=== PATIENT | female | born 1955 | race Caucasian/White ===

== ENCOUNTER 2016-08-11 09:27 | Inpatient (IN) ==
--- NOTE | 2016-08-10 12:49 | Discharge Summary ---
Date of Encounter: 08/15/16 Time of Encounter: 06:41 - Discharge Diagnosis (1) Rotator cuff tear arthropathy of right shoulder Priority: Primary Status: Acute (2) Lumbar radicular pain Priority: Secondary Status: Chronic (3) Asthma Priority: Secondary Status: Chronic Qualifiers: Asthma severity: unspecified severity Asthma complication type: uncomplicated Qualified Code(s): J45.909 - Unspecified asthma, uncomplicated (4) Hypothyroidism Priority: Secondary Status: Chronic Qualifiers: Hypothyroidism type: unspecified Qualified Code(s): E03.9 - Hypothyroidism , unspecified (5) Hypertension Priority: Secondary Status: Chronic Qualifiers: Hypertension type: unspecified secondary hypertension Qualified Code(s): I15.9 - Secondary hypertension, unspecified; I15 - Secondary hypertension (6) Hyperlipidemia Priority: Secondary Status: Chronic Qualifiers: Hyperlipidemia type: unspecified Qualified Code(s): E78.5 - Hyperlipidemia , unspecified (7) COPD (chronic obstructive pulmonary disease) Priority: Secondary Status: Chronic Qualifiers: COPD type: unspecified COPD Qualified Code(s): J44.9 - Chronic obstructive pulmonary disease, unspecified - Discharge Medications Home Medications: Baclofen 20 mg PO TID 01/19/16 [History] Citalopram Hydrobromide [Celexa] 40 mg PO HS 01/19/16 [History] Levothyroxine [Synthroid] 112 mcg PO DAILY 01/19/16 [History] Loratadine [Claritin] 10 mg PO HS 01/19/16 [History] Omeprazole [PriLOSEC] 40 mg PO DAILY 01/19/16 [History] Oxygen 2.5 l NS HS 01/19/16 [History] Pregabalin [Lyrica] 75 mg PO BID 01/19/16 [History] Simvastatin [Zocor] 40 mg PO HS 01/19/16 [History] Trihexyphenidyl HCl 5 mg PO BID 01/19/16 [History] Ziprasidone [Geodon] 80 mg PO BID 01/19/16 [History] Albuterol Neb [Proventil Neb] 2.5 mg IH [id number] PRN #0 inhsol 01/22/16 [Rx] Diazepam [Valium] 5 mg PO HS #30 tablet 01/22/16 [Rx] MOM Conc [MILK OF MAGNESIA conc] 5 ml PO HS PRN #0 ud.liq 01/22/16 [Rx] OxyCODONE Immed Rel [Roxicodone 5 MG] 5 - 10 mg PO Q6HR PRN #30 tablet 08/10/16 [Rx] ClonazePAM [Klonopin] 0.5 mg PO TID 08/11/16 [History] HYDROcodone/Acet 5/325 mg [[place] 5-325 mg] 1 tab PO Q6H PRN 08/11/16 [History] Ipratropium/Albuterol Neb [Duoneb] 3 ml IH Q6HR PRN 08/11/16 [History] Levofloxacin [Levaquin] 500 mg PO DAILY 08/11/16 [History] Topiramate [Topamax] 50 mg PO BID 08/11/16 [History] Allergies/Adverse Reactions: Allergies iodine Allergy (Verified 08/11/16 11:00) Redness of Skin morphine Allergy (Verified 08/11/16 11:00) Itching aspirin Adverse Reaction (Verified 08/11/16 11:00) Difficulty Breathing tape Allergy (Uncoded 08/11/16 11:00) Rash Primary care physician: Jeffery Santana MD - Patient Status Disposition: Transfer Inpatient Rehab Fac Condition: Good Functional capacity at discharge: independent ambulation Overall status at discharge: patient is progressing back to baseline - Discharge Instructions Follow Up With: Kavitha Smith PAC [Physician Stator Winder] - 08/25/16 2:15 pm Jeffery Santana MD [Primary Care Provider] - Additional Instructions: Discharge Instructions: Total Shoulder Please call [facility] ([phone]), your Primary Care Physician, or report to the Emergency Room if you have any of the following symptoms: Nausea, vomiting, fever greater that 101.5, swelling, chest pain, shortness of breath, increased pain/redness/drainage/odor for your incision site, numbness/ tingling, or any other concerning symptoms. ACTIVITY: Always keep your arm in the sling. Do not raise your arm away from your body. Do not use your arm to help with getting in or out of bed. No weight bearing permitted. Only perform those exercises given to you by your therapist. MEDICATIONS: Upon discharge resume your home medications. Take all the medications as prescribed. Take a stool softener if taking narcotic pain medications. Stool softeners are only effective if you drink enough fluids. Drink 6-8 glass of water or fluids a day, unless this is not allowed for another health problem. Despite using stool softeners, if you haven't had a bowel movement in 3 days, please switch to a gentle laxative. Gentle laxatives are sold over the counter. You should have a bowel movement within 24 hours, if not call the office. You will be discharged from the hospital with a prescription for pain medication. You are encouraged to decrease the use of narcotic pain medication as tolerated. Should you require a refill, please call the office. [facility] prescribes narcotic pain medication for only 4-6 weeks after surgery. If you require pain medication beyond this time period, you may be referred to your Primary Care Physician or to the Pain Clinic for further evaluation. Plan ahead for refills on pain medication as many narcotics either need to be picked up at the office or mailed. It is best to call 48-72 hours in advance of needing a prescription refill so you don't run out of medication. To help control the post-operative pain, you may take NSAIDs (Aleve,Advil, Motrin, ibuprofen, naprosyn) or Tylenol as prescribed on the bottle in addition to the pain medication. ANTICOAGULATION (blood thinners): Continue your Aspirin, Lovenox or Coumadin as prescribed to help prevent a blood clot in the leg or in the lungs. As long as your incision remains dry and you tolerate the NSAIDs (Aleve, Advil, Motrin, ibuprofen, naprosyn), it is OK to use the NSAIDS while you are taking your anticoagulation medication. Should your incision start to drain, stop the NSAID and contact our office. Common symptoms of blood clot in the legs include: localized pain, swelling, calf tenderness, redness or discoloration of the skin. Blood clot in the lung symptoms include: shortness of breath, rapid pulse, sweating, and chest pain that worsens with deep breathing, coughing up blood, lightheadedness, and feelings of anxiety. If you experience any of these symptoms notify your physician immediately, go to the emergency room, or if having trouble breathing , call 911. WOUND CARE: Leave the dressing on for 7 days. You may change the dressing if it becomes saturated greater than 50%. You can shower but not a tub bath or submerge your incision in water. Wash your hands with antibacterial soap, rinse and dry prior to any wound care. If you have camelia the visiting nurse or rehab facility can remove the stapes 10-14 days after surgery and place steri -strips across the wound. Leave the steri-strips in place until they fall off on their won. You may let water from the shower run on top of the steri- stirips. If you do not have a visiting nurse or rehab facility, you will need to return to the office at 10-14 days for the camelia to be removed. FOLLOW-UP: Please follow up with your surgeon in the orthopedic clinic, as scheduled - Hospital Course Hospital course: Ms. Dee is a 60 year old female The patient had an uneventful postoperative course. They received antibiotics and physical therapy and were discharged in stable condition. There will follow -up in the office in 2 weeks. - Time Spent with Patient Total time spent providing and/or coordinating discharge services:
[2016-08-11] MEDS ORDERED: CeFAZolin Pre 2,000 MG/100 ML 2,000 MG/100 ML BAG IVPB ONE (09:55)
[2016-08-11] MEDS ORDERED: Lidocaine 1% 20 ML MDV ID ONE (09:55)
[2016-08-11] MEDS ORDERED: Albuterol 2.5 MG/3 ML NEBULIZER IH ONE (09:55)
[2016-08-11] MEDS ORDERED: Ringers Solution, Lactated 1,000 ML IVC SCH ×2 (10:00→14:07)
--- NOTE | 2016-08-11 10:46 | Anesthesia Evaluation PreOp ---
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 (Lumbar spondylosis/radiculitis) Other Medical History: GERD, Other (fibromyalgia) Anesthesia History: No Prior Anesthetic Complications Alcohol Use: none Drug use: none Medications and Allergies Baclofen 20 mg PO TID 01/19/16 [History] Citalopram Hydrobromide [Celexa] 40 mg PO HS 01/19/16 [History] Levothyroxine [Synthroid] 112 mcg PO DAILY 01/19/16 [History] Loratadine [Claritin] 10 mg PO DAILY 01/19/16 [History] Naproxen [Naprosyn] 500 mg PO BID PRN 01/19/16 [History] Omeprazole [PriLOSEC] 40 mg PO DAILY 01/19/16 [History] Oxygen 2.5 l NS HS 01/19/16 [History] Pregabalin [Lyrica] 75 mg PO BID 01/19/16 [History] Simethicone [Gas Relief] 125 mg PO PRN PRN 01/19/16 [History] Simvastatin [Zocor] 40 mg PO HS 01/19/16 [History] Topiramate [Topamax] 25 mg PO QAM AND QHS 01/19/16 [History] Trihexyphenidyl HCl 5 mg PO BID 01/19/16 [History] Ziprasidone [Geodon] 80 mg PO BID 01/19/16 [History] Enoxaparin [Lovenox] 40 mg SQ DAILY #12 syringe 01/21/16 [Rx] Albuterol Neb [Proventil Neb] 2.5 mg IH [id number] PRN #0 inhsol 01/22/16 [Rx] Ascorbic Acid [Vitamin C] 500 mg PO BIDWM tablet 01/22/16 [Rx] Diazepam [Valium] 5 mg PO HS #30 tablet 01/22/16 [Rx] Ferrous Sulfate 325 mg PO BIDWM tablet 01/22/16 [Rx] HYDROcodone/Acet 5/325 mg [[place] 5-325 mg] 1 tab PO Q6H PRN #30 tab 01/22/16 [Rx ] MOM Conc [MILK OF MAGNESIA conc] 5 ml PO HS PRN #0 ud.liq 01/22/16 [Rx] Multivit/Ca/Min/Fe/FA [Thera M Plus] 1 tab PO DAILY tablet 01/22/16 [Rx] TraMADol [Ultram] 50 mg PO Q6HR PRN #30 tablet 01/22/16 [Rx] Ibuprofen 800 mg PO DAILY #1 tablet 03/31/16 [Rx] Azithromycin [Zithromax] 1 applic PO DAILY #6 tablet 07/31/16 [Rx] Benzonatate [Tessalon] 200 mg PO TID PRN #30 capsule 07/31/16 [Rx] OxyCODONE Immed Rel [Roxicodone 5 MG] 5 - 10 mg PO Q6HR PRN #30 tablet 08/10/16 [Rx] Allergies aspirin Allergy (Verified 06/19/16 11:15) Hives iodine Allergy (Verified 06/19/16 11:15) Hives morphine Allergy (Verified 06/19/16 11:15) Hives tape Allergy (Uncoded 06/19/16 11:15) Hives - Meds/Allergy Pre-op Review Medications Reviewed: Yes Allergies Reviewed: Yes Beta Blockers on Current Med List: No Anesthesia Results - Labs Laboratory Tests 08/08/16 08/08/16 08/08/16 14:29 14:29 14:29 WBC 4.9 Hgb 11.3 L Hct 33.7 L Plt Count 237 PT 12.7 H INR 1.2 APTT 33.3 Sodium 140 Potassium 3.8 Chloride 108 Carbon Dioxide 22 BUN 7 Creatinine 0.82 Est GFR ( Amer) > 60 Est GFR (Non-Af Amer) > 60 BUN/Creatinine Ratio 9 - Imaging EKG: report reviewed, image reviewed (SR) Anesthesia Exam Last Vital Signs Temp 98.4 F 08/11/16 09:43 Pulse 58 08/11/16 09:43 Resp 18 08/11/16 10:31 BP 108/58 08/11/16 10:31 Pulse Ox 93 L 08/11/16 10:31 Weight: 65 kg NPO (# of Hours): >> 8 hrs - HEENT Pupil (Motor): Pupils equal, EOMI Mallampati: II Teeth: Edentulous Oral Opening: Greater than 3 - 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
--- NOTE | 2016-08-11 11:04 | History & Physical Report ---
Date of Encounter: 08/11/16 Time of Encounter: 11:03 24 Hour HP Update - Instructions Instructions: If the History and Physical is less than 30 days old and was completed prior to A.M. admission and or procedure and has NOT been updated on calendar day of procedure please complete this update prior to performing procedure. - Update Patient reports changes in Medical Condition: No Changes in assessment/condition: No Changes in Medication: No Preop tests/diagnostics Reviewed: Yes Surgery Remains Indicated: Yes Consent for Planned Operative Procedure(s) Verified: Yes - Pre-Operative Checklist Preoperative Checklist Indicated: No Prophylactic Antibiotic Ordered: Yes Is VTE Prophylaxis Indicated?: Yes
[2016-08-11] MEDS ORDERED: Bupivacaine/Clonidine Syringe 1 EACH SYRINGE ONE (11:38)
[2016-08-11] MEDS ORDERED: ROPIVACAINE HCL/PF 0.5% 30 ML VIAL ONE (11:38)
[2016-08-11] MEDS ORDERED: Lidocaine -MPF 2% 2 ML VIAL ONE ×2 (11:42→11:59)
[2016-08-11] MEDS ORDERED: Dexamethasone 4 MG/ML VIAL ONE ×2 (11:42→11:59)
[2016-08-11] MEDS ORDERED: *HR* Midazolam HCl 2 MG/2 ML VIAL ONE ×2 (11:42→11:59)
[2016-08-11] MEDS ORDERED: *HR* Propofol 200 MG/20 ML VIAL IVP ONE ×2 (11:42→11:59)
[2016-08-11] MEDS ORDERED: Ondansetron 4 MG/2 ML VIAL ONE ×2 (11:42→11:59)
[2016-08-11] MEDS ORDERED: *HR* FentaNYL (PF) 100 MCG/2 ML VIAL ONE ×2 (11:42→11:59)
[2016-08-11] MEDS ORDERED: Lidocaine -MPF 4% 5 ML AMPUL ONE (11:45)
[2016-08-11] MEDS ORDERED: EPHEDrine 50 MG/ML VIAL ONE (11:46)
[2016-08-11] MEDS ORDERED: *HR* Phenylephrine 10 MG/ML VIAL ONE (11:46)
[2016-08-11] MEDS ORDERED: *HR* Rocuronium Bromide 50 MG/5 ML VIAL ONE (11:49)
[2016-08-11] MEDS ORDERED: *HR* Succinylcholine 200 MG/10 ML VIAL IVP ONE ×2 (11:50→11:59)
--- NOTE | 2016-08-11 12:00 | Anesthesia Procedures ---
Date of Encounter: 08/11/16 Time of Encounter: 11:50 Procedures: Anesthesia - Nerve Block Procedure Date: 08/11/16 Time: 11:50 Allergies/Adv Reactions: Allergies Allergy/AdvReac Type Severity Reaction Status Date / Time iodine Allergy Redness of Verified 08/11/16 11:00 Skin morphine Allergy Itching Verified 08/11/16 11:00 aspirin AdvReac Difficulty Verified 08/11/16 11:00 Breathing tape Allergy Rash Uncoded 08/11/16 11:00 Pre-op Diagnosis: Right Shoulder Arthritis Surgical Procedure: Right Total Shoulder Replacement Checklist: Correct Patient Identifier, Correct procedure, History checked Correct side: Right Blood Thinner: No Monitor Applied: BP, Pulse Oximetry Supplemental Oxygen via Nasal Cannula (L/min): 6 Sedation: Versed (mg): 2 Sedation: Fentanyl (mcg): 100 Indication: Post Op Analgesia Pre-op Neuro Deficits: No Block Type: Supraclavicular, Other (SCP, ICB) Catheter placed: No Sterile Technique: Yes Ultrasound used: Yes Anatomy identified: Yes Visual spread of Local: Yes Neuro Stimulation: Yes Nerve Stimulator Range: 0.2 - 0.4 mA Blood on Needle Aspiration: No Smooth Injection of Local: Yes Pain with Injection of Local: No Prep: Chlorhexadine Needle: 22 x 50 mm Stimuplex Local: Ropivacaine (0.5% - 20mL Supra, 5mL ICB and SCP) Volume (cc): 30 Number of Attempts: 1 Complications: None/effective block Vitals: VSS throughout procedure. Post 92-94%, 120/57, 64, 12 rr Comments: Verbal order Dr Clemente for post op pain management. Patient tolerated well.
[2016-08-11] MEDS ORDERED: Naloxone 0.4 MG/ML INJ IVP PRN ×2 (12:01→14:07)
[2016-08-11] MEDS ORDERED: Ondansetron 4 MG/2 ML VIAL IVP PRN ×2 (12:01→14:07)
[2016-08-11] MEDS ORDERED: *HR* HYDROmorphone (PF) 1 MG/ML SYRINGE IVP PRN ×2 (12:01→14:21)
--- NOTE | 2016-08-11 12:43 | Orthopedic Operative Note ---
Date of procedure: 08/11/16 Pre-op diagnosis: Right shoulder cuff tear arthropathy Post-op diagnosis: same Procedure: Procedure: Right Total Shoulder Replacment Reverse, Estimated blood loss: 100 cc Hardware:Arthrex small glenoid baseplate, 2 4.5 screws. 1 6.5 screw, 36 lateral glenosphere, 7 humeral stem, poly insert 3 constrained 6 metal Exam Under anesthesia: Full motion and no instability Procedural Notes: Irreparable tears subscap supraspinatus Operative procedure: The patient was brought to the operating room and placed on the operating room table. After general anesthesia was administered the operative shoulder was examined. Findings were noted. The patient was placed in the modified beachchair position. All pressure points were padded appropriately. And the head was stabilized in the neutral position. The operative extremity was prepped and draped in the sterile surgical fashion. The patient received IV antibiotics prior to skin incision. A standard deltopectoral approach was made to the operative shoulder. Incision was made to the skin and subcutaneous tissue,hemo stasis was obtained with Bovie cautery. Using careful blunt dissection the cephalic vein was identified and mobilized medially. The deltopectoral interval was developed and the clavipectoral fascia was incised. The subscap was irreparable. The humerus was dislocated patient noted to have irreparable tear supraspinatus tendon, and the humeral cut was made along the anatomic neck. Anterior and posterior Bankart retractors were placed to expose the glenoid. The glenoid guide was seated and the centering hole was made. It was reamed with the appropriate reamer. Small baseplate was seated and secured with (2) 4.5 screws and one 6.5 screw. The baseplate was irrigated and dried and the 36 lateral Glenosphere was seated and secured with the Tenorio taper. The Tenorio taper was tested and found to be secure the humerus was redislocated and prepared with the diaphyseal reamers, followed by a broaching process up to the appropriate size 7 in the patient's anatomic version. The metaphyseal reamer was then utilized. Trial reduction found the shoulder to be relocatable. Trial components were removed. The appropriate 7 stem was impacted in place in the patient's anatomic version. Trial reduction found the shoulder to be relocatable and stable with the appropriate 6 metal 3 constrained Kylie Trial component was removed and the 6 metal 3 constrained was seated and secured the shoulder was reduced. The shoulder had excellent motion and excellent stability and no evidence of dislocation. The deep tissue was irrigated with pulse irrigation. The deltopectoral interval was closed with a running #1 PDS suture, subcutaneous tissue was irrigated and closed with 0 PDS suture, the skin was closed with skin camelia The patient was placed in a sterile dressing, abduction brace and extubated. The patient was then transferred to the recovery room in stable condition. Anesthesia: GETA Surgeon: Jeffery Clemente Condition: stable Disposition: PACU
[2016-08-11 13:46] LABS: Hematocrit 35.1 % (35.3-44.9); Hemoglobin 11.5 g/dL (11.5-15.4)
[2016-08-11] MEDS ORDERED: Albuterol 2.5 MG/3 ML NEBULIZER IH PRN (14:07)
[2016-08-11] MEDS ORDERED: *HR* HYDROmorphone (PF) 1 MG/ML SYRINGE IVP SCH (14:07)
[2016-08-11] MEDS ORDERED: Sennosides 8.6 MG TABLET PO PRN (14:07)
[2016-08-11] MEDS ORDERED: MOM Conc 10 ML UD.LIQ PO PRN ×2 (14:07)
[2016-08-11] MEDS ORDERED: Temazepam 15 MG CAPSULE PO PRN (14:07)
[2016-08-11] MEDS ORDERED: Ipratropium/Albuterol Neb 3 ML IH PRN (14:07)
--- NOTE | 2016-08-11 14:11 | Anesthesia Evaluation Post Op ---
Date of Encounter: 08/11/16 Time of Encounter: 13:20 - Vital Signs Vital Signs: Last Vital Signs Temp 97.2 F L 08/11/16 14:02 Pulse 71 08/11/16 14:02 Resp 16 08/11/16 14:02 BP 119/64 08/11/16 14:02 Pulse Ox 99 08/11/16 14:02 - Lungs Lungs: Clear Ascult./Percussion - Airway Airway: Non-obstructed - Cardiovascular Regular Rate - Mental Status Mental Status: Alert & Oriented, Answers Appropriately - Pain Pain Scale: 2 - Nausea Vomiting Nausea Vomiting: Not Present - Hydration Hydration: Ice chips - Discharge PostOp Status: Transfer Patient to floor
[2016-08-11] MEDS: Baclofen 10 MG TABLET PO SCH ×2 (15:16→22:01)
[2016-08-11] MEDS: clonazePAM 0.5 MG TABLET PO SCH ×2 (15:17→22:01)
[2016-08-11] MEDS: ceFAZolin 2,000 MG in D5% in Water 100 ML IVPB SCH (15:17)
[2016-08-11] MEDS: *HR* OxyCODONE Immed Rel 5 MG TABLET PO PRN (15:26)
[2016-08-11] MEDS: *HR* Enoxaparin 30 MG/0.3 ML SYRINGE SQ SCH (16:49)
[2016-08-11] MEDS ORDERED: *HR* Enoxaparin 30 MG/0.3 ML SYRINGE SQ SCH (18:00)
[2016-08-11] MEDS ORDERED: NON-FORMULARY MEDICATION 1 EACH EACH (Oxygen [Oxygen] 2.5 L) NS SCH (21:00)
[2016-08-11] MEDS: Pregabalin 75 MG CAPSULE PO SCH (22:00)
[2016-08-11] MEDS: Loratadine 10 MG TABLET PO SCH (22:00)
[2016-08-11] MEDS: diazePAM 5 MG TABLET PO SCH (22:01)
[2016-08-11] MEDS: Ziprasidone 80 MG CAPSULE PO SCH (22:01)
[2016-08-11] MEDS: Acetaminophen 325 MG TABLET PO PRN (22:02)
[2016-08-11] MEDS: Topiramate 25 MG TABLET PO SCH (22:02)
[2016-08-12] MEDS: ceFAZolin 2,000 MG in D5% in Water 100 ML IVPB SCH (00:32)
[2016-08-12] MEDS: *HR* Enoxaparin 30 MG/0.3 ML SYRINGE SQ SCH ×2 (05:35→18:30)
[2016-08-12] MEDS: Acetaminophen 325 MG TABLET PO PRN (05:35)
--- NOTE | 2016-08-12 06:45 | Orthopedics Progress Note ---
Date of Encounter: 08/12/16 Time of Encounter: 06:44 - Assessment and Plan (1) Rotator cuff tear arthropathy of right shoulder Current Visit: Yes Status: Acute (2) Lumbar radicular pain Current Visit: No Status: Chronic (3) Asthma Current Visit: No Status: Chronic Qualifiers: Asthma severity: unspecified severity Asthma complication type: uncomplicated Qualified Code(s): J45.909 - Unspecified asthma, uncomplicated (4) Hypothyroidism Current Visit: No Status: Chronic Qualifiers: Hypothyroidism type: unspecified Qualified Code(s): E03.9 - Hypothyroidism , unspecified (5) Hypertension Current Visit: Yes Status: Chronic Qualifiers: Hypertension type: unspecified secondary hypertension Qualified Code(s): I15.9 - Secondary hypertension, unspecified; I15 - Secondary hypertension (6) Hyperlipidemia Current Visit: Yes Status: Chronic Qualifiers: Hyperlipidemia type: unspecified Qualified Code(s): E78.5 - Hyperlipidemia , unspecified (7) COPD (chronic obstructive pulmonary disease) Current Visit: Yes Status: Chronic Qualifiers: COPD type: unspecified COPD Qualified Code(s): J44.9 - Chronic obstructive pulmonary disease, unspecified Subjective Interval history: Patient was seen this morning drowsy Afebrile vital signs stable. Operative extremity: Neurovascularly intact Dressing clean dry and intact Calves nontender Assessment and plan: Continue with postoperative care Discharged today if eligible Objective Vital signs: Vital Signs Temp Pulse Resp BP Pulse Ox 08/12/16 06:37 97.3 F L 63 16 116/71 96 08/12/16 04:44 97.7 F 75 16 152/83 100 08/12/16 00:49 98.0 F 65 16 117/73 98 08/11/16 19:15 97.7 F 77 15 103/66 92 L 08/11/16 16:53 97.4 F L 71 12 105/56 90 L 08/11/16 16:00 97.8 F 65 12 119/61 99 08/11/16 14:45 97.6 F 64 18 114/68 97 08/11/16 14:02 97.2 F L 71 16 119/64 99 08/11/16 13:44 97.6 F 67 16 126/68 08/11/16 13:28 97.3 F L 80 18 121/71 98 08/11/16 13:18 77 18 133/65 97 08/11/16 13:08 81 18 121/69 98 08/11/16 12:58 97.6 F 83 18 123/61 95 08/11/16 11:43 66 112/56 98 08/11/16 10:31 18 108/58 93 L 08/11/16 09:43 98.4 F 58 18 108/58 93 L Intake and Output 08/11/16 08/11/16 08/12/16 15:59 23:59 07:59 Intake Total 100 / 100 Output Total 100 / 100 Balance -100 / -100 100 / 100 Intake: IV Fluids 100 / 100 Ancef 2,000 MG In 100 / 100 Dextrose 5% 100 ML @ 200 mls/hr IVPB Q8HR [facility] Rx#: [id number] Output: Estimated Blood Loss 100 / 100 Other: Weight 64.864 kg - Labs CBC & BMP: 08/11/16 13:19 Labs: Abnormal lab results Hct 35.1 % (35.3-44.9) L 08/11/16 13:19 - VTE Documentation of Mechanical Device: Intermittent pneumatic compression device Consult Discharge Plan - Plan Referrals: Jeffery Santana MD [Primary Care Provider] - Prescriptions: OxyCODONE Immed Rel [Roxicodone 5 MG] 5 - 10 mg PO Q6HR PRN #30 tablet PRN Reason: Pain
[2016-08-12 07:13] LABS: Hematocrit 34.7 % (35.3-44.9); Hemoglobin 11.3 g/dL (11.5-15.4)
[2016-08-12] MEDS: Topiramate 25 MG TABLET PO SCH ×2 (09:11→21:33)
[2016-08-12] MEDS: Ziprasidone 80 MG CAPSULE PO SCH ×2 (09:11→21:34)
[2016-08-12] MEDS: clonazePAM 0.5 MG TABLET PO SCH ×3 (09:12→21:34)
[2016-08-12] MEDS: Pregabalin 75 MG CAPSULE PO SCH ×2 (09:12→21:34)
[2016-08-12] MEDS: Baclofen 10 MG TABLET PO SCH ×3 (09:12→21:33)
[2016-08-12] MEDS: *HR* OxyCODONE Immed Rel 5 MG TABLET PO PRN ×2 (12:21→18:31)
[2016-08-12] MEDS ORDERED: Cortisporin *EAR* SOLN 10 ML BOTTLE RIGHT EAR SCH (13:00)
[2016-08-12] MEDS ORDERED: Acetaminophen IV 1,000 MG/100 ML INFUS..BTL IVPB PRN (13:48)
[2016-08-12] MEDS: Loratadine 10 MG TABLET PO SCH (21:33)
[2016-08-12] MEDS: Cortisporin *EAR* SOLN 10 ML BOTTLE RIGHT EAR SCH (21:33)
[2016-08-12] MEDS: diazePAM 5 MG TABLET PO SCH (21:34)
[2016-08-13 05:43] LABS: Hematocrit 39.1 % (35.3-44.9); Hemoglobin 12.6 g/dL (11.5-15.4)
[2016-08-13] MEDS: Cortisporin *EAR* SOLN 10 ML BOTTLE RIGHT EAR SCH ×3 (05:45→20:43)
[2016-08-13] MEDS: *HR* Enoxaparin 30 MG/0.3 ML SYRINGE SQ SCH ×2 (05:48→17:36)
[2016-08-13] MEDS: Topiramate 25 MG TABLET PO SCH ×2 (09:53→20:42)
[2016-08-13] MEDS: Baclofen 10 MG TABLET PO SCH ×3 (09:53→20:41)
[2016-08-13] MEDS: Ziprasidone 80 MG CAPSULE PO SCH ×2 (09:53→21:00)
[2016-08-13] MEDS: Pregabalin 75 MG CAPSULE PO SCH ×2 (09:54→20:41)
[2016-08-13] MEDS: clonazePAM 0.5 MG TABLET PO SCH ×3 (09:54→20:40)
--- NOTE | 2016-08-13 13:08 | Orthopedics Progress Note ---
Date of Encounter: 08/13/16 Time of Encounter: 13:06 - Assessment and Plan (1) Rotator cuff tear arthropathy of right shoulder Current Visit: Yes Status: Acute Stable Discharge to rehabilitation tomorrow Subjective Principal diagnosis: Right shoulder rotator cuff tear Interval history: Patient comfortable without complaints Right shoulder: Wound is clean dry intact Sling in place Neurovascularly intact distally Minimal swelling off and Objective Vital signs: Vital Signs Temp Pulse Resp BP Pulse Ox 08/13/16 10:58 98.4 F 76 16 132/79 95 08/13/16 06:33 98.4 F 78 18 151/81 94 L 08/12/16 23:39 98.4 F 59 18 116/74 95 08/12/16 20:00 99.0 F 78 15 143/68 93 L 08/12/16 15:22 97.6 F 56 14 144/74 95 Intake and Output 08/12/16 08/13/16 08/13/16 23:59 07:59 15:59 Intake Total 560 / 560 100 / 100 Output Total 800 / 800 Balance -240 / -240 100 / 100 Intake: IV Fluids 200 / 200 Ofirmev 1,000 mg In 100 100 / 100 ml @ 400 mls/hr IVPB Q6H PRN Rx#:[id number] Ancef 2,000 MG In 100 / 100 Dextrose 5% 100 ML @ 200 mls/hr IVPB Q8HR [facility] Rx#: [id number] Oral 360 / 360 100 / 100 Output: Urine 800 / 800 Other: Meal Dinner Breakfast Percent of Meal Consumed 90% 10% # Voids 1 Blood Glucose* 449 Incision: clean and dry - Labs CBC & BMP: 08/13/16 04:36 - VTE Documentation of Mechanical Device: Venous foot pump, device Consult Discharge Plan - Plan Referrals: Jeffery Santana MD [Primary Care Provider] -
[2016-08-13] MEDS: Loratadine 10 MG TABLET PO SCH (20:42)
[2016-08-13] MEDS: diazePAM 5 MG TABLET PO SCH (21:00)
[2016-08-14] MEDS: *HR* OxyCODONE Immed Rel 5 MG TABLET PO PRN ×2 (00:08→11:03)
[2016-08-14] MEDS: Cortisporin *EAR* SOLN 10 ML BOTTLE RIGHT EAR SCH (04:02)
[2016-08-14] MEDS: *HR* Enoxaparin 30 MG/0.3 ML SYRINGE SQ SCH (05:44)
[2016-08-14] MEDS: Topiramate 25 MG TABLET PO SCH (08:25)
[2016-08-14] MEDS: Pregabalin 75 MG CAPSULE PO SCH (08:25)
[2016-08-14] MEDS: Baclofen 10 MG TABLET PO SCH (08:25)
[2016-08-14] MEDS: clonazePAM 0.5 MG TABLET PO SCH (08:26)
[2016-08-14] MEDS: Ziprasidone 80 MG CAPSULE PO SCH (08:26)
[2016-08-14 10:57] VITALS: BP 131/78
== END 2016-08-14 12:17 | DRG 483 ==
LOC: SAMDAY 09:27 → 3NENU 10:58
PROVIDERS: ADMIT Orthopaedic Surgery; ATTEND Orthopaedic Surgery

== ENCOUNTER 2017-03-28 18:54 | Observation (INO) ==
[2017-03-28] MEDS ORDERED: Levofloxacin 750 MG/150 ML 750 MG/150 ML BAG IVPB ONE (20:49)
--- NOTE | 2017-03-28 21:08 | Emergency Department Note ---
Disposition Clinical Impression: Sepsis Qualifiers: Sepsis type: sepsis due to unspecified organism Qualified Code(s): A41.9 - Sepsis, unspecified organism Community acquired pneumonia Qualifiers: Laterality: right Lung location: upper lobe of lung Qualified Code(s): J18.1 - Lobar pneumonia, unspecified organism Disposition: Admitted As Inpatient Condition: Good Referrals: Inga Birch [employer] [Primary Care Provider] - Forms: ED Satisfaction Letter SOB HPI - General Chief Complaint: ED Shortness of Breath/Dyspnea Stated Complaint: Pneumonia Time Seen by Provider: 03/28/17 19:59 Source: patient Mode of arrival: private vehicle Limitations: no limitations Nursing Notes Reviewed: Yes Vital Signs Reviewed: Yes - History of Present Illness 61-year-old female history of asthma wears 2-1/2 L at night, smoking who presents to the ER due to shortness of breath, cough, fever and called by her primary care provider. Patient states she has felt unwell for the last 4-5 days. She was seen by her PCP today and had an chest x-ray ordered. She states she was called and told showed pneumonia. She reports she has had fevers and chills at home as well as a productive cough with yellow sputum for the last 4-5 days. Reports right-sided shoulder pain during this time. No nausea vomiting or diarrhea. No recent illnesses. States she has had pneumonia in the past with his heart recently. No other complaints. Pt Subjective Complaint: shortness of breath, cough Onset (ago): day(s) Context: recent illness Severity: moderate Consistency/Duration: constant Improves with: nothing Worsens with: nothing Known history of: asthma Associated symptoms: Reports: chest pain, fever, cough, sputum production Treatment prior to arrival: none Cough present: Yes Cough Description: Involuntary Cough Frequency: Intermittent Sputum production: Yes Sputum Amount: Small Sputum Color: Yellow - Related Data Home oxygen amount: 2 liters Home Medications Medication Instructions Recorded Confirmed Baclofen 20 mg PO TID 01/19/16 03/28/17 Citalopram Hydrobromide [Celexa] 40 mg PO HS 01/19/16 03/28/17 Levothyroxine [Synthroid] 112 mcg PO DAILY 01/19/16 03/28/17 Omeprazole [PriLOSEC] 40 mg PO DAILY 01/19/16 03/28/17 Oxygen 2.5 l NS HS 01/19/16 03/28/17 Pregabalin [Lyrica] 75 mg PO BID 01/19/16 03/28/17 Simvastatin [Zocor] 40 mg PO HS 01/19/16 03/28/17 Trihexyphenidyl HCl 5 mg PO BID 01/19/16 03/28/17 Ziprasidone [Geodon] 80 mg PO BID 01/19/16 03/28/17 Topiramate [Topamax] 50 mg PO BID 08/11/16 03/28/17 levoFLOXacin [Levaquin] 500 mg PO DAILY 08/11/16 03/28/17 Cetirizine HCl [Zyrtec] 10 mg PO DAILY 03/28/17 03/28/17 Ferrous Sulfate [Iron] 325 mg PO DAILY 03/28/17 03/28/17 Multivitamin [One Daily 1 each PO DAILY 03/28/17 03/28/17 Multivitamin] Simethicone [Gas Relief] 125 mg PO QID PRN 03/28/17 03/28/17 traZODone [TraZODone] 50 mg PO HS 03/28/17 03/28/17 Previous Rx's Medication Instructions Recorded Albuterol Neb [Proventil Neb] 2.5 mg IH [id number] PRN #0 inhsol 01/22/16 diazePAM [Valium] 5 mg PO HS #30 tablet 01/22/16 Allergies Allergy/AdvReac Type Severity Reaction Status Date / Time iodine Allergy Redness of Verified 03/28/17 19:25 Skin morphine Allergy Itching Verified 03/28/17 19:25 aspirin AdvReac Difficulty Verified 03/28/17 19:25 Breathing tape Allergy Rash Uncoded 08/11/16 11:00 All systems ED: reviewed and negative except as stated. Constitutional: Reports: fever, chills, weakness Cardiovascular: Reports: chest pain Respiratory: Reports: cough, dyspnea, sputum production Gastrointestinal: Denies: abdominal pain, nausea, vomiting, diarrhea Past Medical History - Past Medical History Attestation: Yes The following information was validated with the patient. Source: patient Medical history: Reports: asthma, GERD, thyroid disease Surgical history: Reports: appendectomy, , orthopedic, other, other Psychiatric history: Reports: anxiety, depression [employer] history: Reports: non-contributory - Social History Smoking Status: Current some day smoker Smokeless Tobacco Status: No Alcohol use: Reports: none Drug use: Reports: none Physical Exam - General Limitations: no limitations General appearance: alert, in no apparent distress - Head Head exam: atraumatic, normocephalic, normal inspection - Eye Eye exam: Present: normal appearance, EOMI - ENT ENT exam: normal exam - Neck Neck exam: Present: normal inspection, full ROM - Chest Chest inspection: Present: normal inspection, symmetric chest wall rise - Respiratory Respiratory exam: Present: other (Diminished breath sounds in the right upper and lower lung armas. Otherwise clear to auscultation). Absent: respiratory distress, wheezes, prolonged expiratory phase - Cardiovascular Cardiovascular exam: Present: normal rhythm, tachycardia, normal heart sounds - Abdominal Exam Abdominal exam: Present: soft, Non-Tender. Absent: tenderness, distention, rigidity - Extremities Exam Extremities exam: Present: normal inspection, full ROM - Expanded Upper Extremity Exam Shoulder exam: Present: normal inspection, full ROM Arm exam: Present: normal inspection, full ROM Elbow exam: Present: normal inspection, full ROM Forearm/Wrist exam: Present: normal inspection, full ROM Hand exam: Present: normal inspection, full ROM Vascular exam: Normal: radial pulse - Expanded Lower Extremity Exam Hip/Pelvis exam: Present: normal inspection, full ROM Upper leg exam: Present: normal inspection, full ROM Knee exam: Present: normal inspection, full ROM Lower leg exam: Present: normal inspection, full ROM Ankle exam: Present: normal inspection, full ROM Foot/toe exam: Present: normal inspection, full ROM Neurovascular/Tendon exam: Absent: motor deficit, sensory deficit - Neurological Exam Neurological exam: Present: alert, other (GCS 15. Nonfocal exam. Moves all extremities equally.) - Psychiatric Psychiatric exam: Present: normal affect, normal mood - Skin Skin exam: Present: warm, dry, intact, normal color Course Course Narrative: Patient seen and examined. Febrile and tachycardic here. Chest x-ray reviewed showing right upper lobe pneumonia. We will obtain sepsis protocol labs including lactate and blood cultures. Patient given a liter of IV fluids and a dose of Levaquin. Will be admitted to the hospitalist service for pneumonia, sepsis. Vital Signs Temperature 101.5 F H 03/28/17 19:26 Pulse Rate 105 03/28/17 19:26 Respiratory Rate 20 03/28/17 19:26 Blood Pressure 163/83 03/28/17 19:26 O2 Sat by Pulse Oximetry 90 03/28/17 19:26 Temperature 101.5 F H 03/28/17 19:26 Pulse Rate 105 03/28/17 19:26 Respiratory Rate 20 03/28/17 19:26 Blood Pressure 163/83 03/28/17 19:26 O2 Sat by Pulse Oximetry 91 03/28/17 20:38 Oxygen Delivery Oxygen Delivery Room Air Shortness of Breath/Dyspnea - MDM Narrative Medical decision making narrative: 61-year-old female presents to the ER due to pneumonia. She has been sick for several days prior. Was seen by her PCP and noted to have pneumonia by chest x- ray. She is febrile here as well as tachycardic. Lactate is normal. Given a liter of fluids and a dose of IV Levaquin. She is admitted to the hospitalist service in stable condition for community-acquired pneumonia and sepsis. - Lab Data Lab results reviewed: Yes I reviewed the patient's lab results. Result diagrams: 03/28/17 22:17 03/28/17 22:17 Lab Results 03/28/17 03/28/17 03/28/17 Range/Units 22:17 22:17 22:17 WBC 11.8 H (4.3-11.1) K/mcL RBC 3.24 L (3.82-4.97) M/mcL Hgb 10.7 L (11.5-15.4) g/dL Hct 30.6 L (35.3-44.9) % MCV 94.4 (83.0-100.0) fL MCH 33.0 (28.0-33.3) pg MCHC 35.0 (31.6-35.5) g/dL RDW 12.8 (11.5-14.5) % Plt Count 199 (140-400) K/mcL MPV 9.9 (9.4-12.4) fL Immature Plt Fraction 3.3 (1.1-6.1) % PT (9.4-12.1) Seconds INR APTT (26.0-36.0) Seconds Sodium 135 L (136-145) mEq/L Potassium 3.3 L (3.5-4.5) mEq/L Chloride 102 (98-109) mEq/L Carbon Dioxide 24 (19-29) mEq/L BUN 8 (7-20) mg/dL Creatinine 0.76 (0.57-1.11) mg/dL Est GFR ( Amer) > 60 (> 60) Est GFR (Non-Af Amer) > 60 (> 60) BUN/Creatinine Ratio 11 (6-26) Glucose 137 H (70-99) mg/dL Calculated Osmolality 280 (280-300) Lactic Acid 1.1 (0.5-2.2) mmol/L Calcium 8.9 (8.6-10.8) mg/dL Phosphorus (2.3-4.7) mg/dL Magnesium (1.6-2.6) mg/dL Total Bilirubin (0.2-1.2) mg/dL Direct Bilirubin (0.0-0.5) mg/dL Indirect Bilirubin (0.0-1.2) mg/dL AST (5-34) Units/L ALT (0-55) Units/L Alkaline Phosphatase (38-126) Units/L Serum Total Protein (6.0-8.3) g/dL Albumin (3.5-5.0) g/dL Globulin (2.4-3.5) g/dL Albumin/Globulin Ratio (1.1-2.2) 03/28/17 03/28/17 Range/Units 22:17 22:17 WBC (4.3-11.1) K/mcL RBC (3.82-4.97) M/mcL Hgb (11.5-15.4) g/dL Hct (35.3-44.9) % MCV (83.0-100.0) fL MCH (28.0-33.3) pg MCHC (31.6-35.5) g/dL RDW (11.5-14.5) % Plt Count (140-400) K/mcL MPV (9.4-12.4) fL Immature Plt Fraction (1.1-6.1) % PT 12.8 H (9.4-12.1) Seconds INR 1.2 APTT 28.1 (26.0-36.0) Seconds Sodium (136-145) mEq/L Potassium (3.5-4.5) mEq/L Chloride (98-109) mEq/L Carbon Dioxide (19-29) mEq/L BUN (7-20) mg/dL Creatinine (0.57-1.11) mg/dL Est GFR ( Amer) (> 60) Est GFR (Non-Af Amer) (> 60) BUN/Creatinine Ratio (6-26) Glucose (70-99) mg/dL Calculated Osmolality (280-300) Lactic Acid (0.5-2.2) mmol/L Calcium (8.6-10.8) mg/dL Phosphorus 2.5 (2.3-4.7) mg/dL Magnesium 1.9 (1.6-2.6) mg/dL Total Bilirubin 0.3 (0.2-1.2) mg/dL Direct Bilirubin 0.2 (0.0-0.5) mg/dL Indirect Bilirubin 0.1 (0.0-1.2) mg/dL AST 19 (5-34) Units/L ALT 12 (0-55) Units/L Alkaline Phosphatase 87 (38-126) Units/L Serum Total Protein 6.8 (6.0-8.3) g/dL Albumin 3.3 L (3.5-5.0) g/dL Globulin 3.5 (2.4-3.5) g/dL Albumin/Globulin Ratio 0.9 L (1.1-2.2) - Radiology Data Radiology results reviewed: Yes I reviewed the patient's radiology results. - EKG Data EKG attestation: Yes I reviewed and interpreted this EKG. EKG results narrative: EKG demonstrates sinus rhythm with a rate of 80 bpm. Normal axis. Normal intervals. Normal R-wave progression. Nonspecific ST-T wave changes in the inferior leads. No gross ST elevations or depressions. No acute ischemic findings. S.B.A.R. - S.[email or web address].[email or web address] Situation: Demographics, MOA Background: Presenting Complaint, Relevant PMH, Meds, & Allergies Assessment: Course and respsone to treatment, Exam Concerns, Patient/Family Expectation, Pertinant Lab Results Recommendation: Barrier(s) to disposition, Recommendation based on pending studies, treatments, or consults S.B.Vasquez Report Given to: Dr. Will Greene Repor Time: 22:50
--- NOTE | 2017-03-28 21:53 | Emergency Department Note ---
START Narrative - START START: I examined this patient and my medical decision-making was reviewed with the Resident Physician. I agree with the documented findings, disposition and treatment plan as described except to the extent set forth below. 61 year old female with diagnosed pneumonia on RLL earlier today with SIRS criteria (+) temperature/tachycardia will be admitted to medicine today with levauqin ordered and IVF for sepsis protocol.
[2017-03-28] MEDS: 0.9 % Sodium Chloride 1,000 ML IVC SCH ×2 (21:55→22:36)
[2017-03-28 22:31] LABS: Basophils % 0.1 %; Eosinophils % 0.3 %; Hematocrit 30.6 % (35.3-44.9); Hemoglobin 10.7 g/dL (11.5-15.4); Immature Granulocytes % 0.4 % (0-4); Immature Platelets 3.3 % (1.1-6.1); Lymphocytes # 0.7 K/mcL (0.6-4.6); Mean Corpuscular Volume 94.4 fL (83.0-100.0); Mean Platelet Volume 9.9 fL (9.4-12.4); Monocytes # 0.7 K/mcL (0.0-1.3); Monocytes % 6.2 %; Neutrophils # 10.3 K/mcL (1.6-8.9); Platelet Count 199 K/mcL (140-400); Red Blood Count 3.24 M/mcL (3.82-4.97); Red Cell Distribution Width 12.8 % (11.5-14.5)
[2017-03-28 22:39] LABS: INR 1.2; Prothrombin Time 12.8 Seconds (9.4-12.1)
[2017-03-28 22:41] LABS: BUN/Creatinine Ratio 11 (6-26); Blood Urea Nitrogen 8 mg/dL (7-20); Carbon Dioxide 24 mEq/L (19-29); Chloride 102 mEq/L (98-109); Potassium 3.3 mEq/L (3.5-4.5); Sodium 135 mEq/L (136-145); eGFR For African Americans > 60 (> 60)
[2017-03-28 22:42] LABS: Activated Partial Thrombo Time 28.1 Seconds (26.0-36.0); Calcium 8.9 mg/dL (8.6-10.8); Glucose 137 mg/dL (70-99); Osmolality,Calculated 280 (280-300); eGFR For Non-African Americans > 60 (> 60)
[2017-03-28 22:46] LABS: Albumin 3.3 g/dL (3.5-5.0); Albumin/Globulin Ratio 0.9 (1.1-2.2); Bilirubin,Direct 0.2 mg/dL (0.0-0.5); Bilirubin,Indirect 0.1 mg/dL (0.0-1.2); Bilirubin,Total 0.3 mg/dL (0.2-1.2); Globulin 3.5 g/dL (2.4-3.5); Magnesium 1.9 mg/dL (1.6-2.6); Phosphorous 2.5 mg/dL (2.3-4.7); Total Protein 6.8 g/dL (6.0-8.3)
[2017-03-28 23:01] LABS: Platelet Estimate Normal (Normal)
[2017-03-29] MEDS ORDERED: Naloxone 0.4 MG/ML INJ IVP PRN (01:17)
[2017-03-29] MEDS ORDERED: Ipratropium/Albuterol Neb 3 ML IH PRN (01:23)
[2017-03-29] MEDS ORDERED: 0.9 % Sodium Chloride 1,000 ML IVC SCH (01:30)
--- NOTE | 2017-03-29 01:30 | Internal Med History&Physical ---
Date of Encounter: 03/29/17 Time of Encounter: 01:28 Assessment and Plan (1) Community acquired pneumonia Current visit: Yes Status: Acute Chest x-ray performed in the ER revealed the presence of a right upper lobe pneumonia. -Patient is febrile and tachycardic at presentation. White count is elevated at 11.8. -Lactate is normal -IV Levaquin 750 mg daily. -DuoNeb's as needed. -Blood cultures and sputum cultures. Qualifiers: Laterality: right Lung location: upper lobe of lung Qualified Code(s): J18.1 - Lobar pneumonia, unspecified organism (2) COPD (chronic obstructive pulmonary disease) Current visit: No Status: Chronic Patient is a known history of COPD. -Patient is admitted smoker, although she is trying to quit. -Patient smoked for approximately 30-40 years. -She is down to 1-2 cigarettes per day. -Wears 2-1/2 L of oxygen at night. -Continue home medications. -DuoNeb as needed. Qualifiers: COPD type: unspecified COPD Qualified Code(s): J44.9 - Chronic obstructive pulmonary disease, unspecified (3) Hypertension Current visit: No Status: Chronic Patient has a known history of hypertension. -Upon admission to the hospital, patient's blood pressure is 163/83. -Continue home medications. Qualifiers: Hypertension type: unspecified Qualified Code(s): I10 - Essential (primary ) hypertension (4) DVT prophylaxis Current visit: No Status: Acute Heparin 5000 subcutaneous every 12 hours (5) Suspected CHF (congestive heart failure) Current visit: Yes Status: Acute Patient has hepatojugular reflux. -No known history of CHF. -Draw BNP labs in the morning. -Telemetry. -Echocardiogram ordered. Internal Medicine - H&P: HPI Chief complaint: Shortness of breath Admitted From: Home History of present illness: Ms. Dee is a 61 year old female with past medical history of asthma, COPD, and thyroid disease who presented to the ER today with chief complaint of shortness of breath, cough, fever. Patient states she was seen earlier in the day by her primary care provider, who recommended that she come into the ER after chest x- ray revealed possible postoperative pneumonia. She notes that her symptoms have lasted approximately 4-5 days. She has felt unwell, has had fever, chills , and a productive cough with yellow colored sputum. She also complains of right-sided shoulder pain. Patient has not been hospitalized recently. Last time patient was hospitalized for a fall that she had. She denies any recent travel or antibiotic use. She does note that she has had pneumonia in the distant past. She uses 2-1/2 L of oxygen at night. She denies chest pain, headache, sore throat, and sinus congestion. Past Med Surg Social Fam HX - Past Medical History Medical history: asthma, GERD, thyroid disease Psychiatric history: anxiety, depression - Past Surgical History Surgical History: appendectomy, , orthopedic, other, other - Social History Smoking Status: Current some day smoker Smokeless Tobacco Status: No Alcohol use: none Drug use: none - Family History Father Name: Roger Birch Family Member Ethnicity: Non- Living Status: Age at : 91 Cause of : cancer Hx Family Cardiac Disorders: No Hx Family Respiratory Disorders: No Hx Family Cancer: Yes (Prostate Cancer) Hx Family GI Disorders: No Hx Family Genitourinary Disorders: No Hx Family Endocrine Disorder: No Internal Medicine - H&P: Meds Baclofen 20 mg PO TID 01/19/16 [History] Citalopram Hydrobromide [Celexa] 40 mg PO HS 01/19/16 [History] Levothyroxine [Synthroid] 112 mcg PO DAILY 01/19/16 [History] Omeprazole [PriLOSEC] 40 mg PO DAILY 01/19/16 [History] Oxygen 2.5 l NS HS 01/19/16 [History] Pregabalin [Lyrica] 75 mg PO BID 01/19/16 [History] Simvastatin [Zocor] 40 mg PO HS 01/19/16 [History] Trihexyphenidyl HCl 5 mg PO BID 01/19/16 [History] Ziprasidone [Geodon] 80 mg PO BID 01/19/16 [History] Albuterol Neb [Proventil Neb] 2.5 mg IH [id number] PRN #0 inhsol 01/22/16 [Rx] diazePAM [Valium] 5 mg PO HS #30 tablet 01/22/16 [Rx] Topiramate [Topamax] 50 mg PO BID 08/11/16 [History] levoFLOXacin [Levaquin] 500 mg PO DAILY 08/11/16 [History] Cetirizine HCl [Zyrtec] 10 mg PO DAILY 03/28/17 [History] Ferrous Sulfate [Iron] 325 mg PO DAILY 03/28/17 [History] Multivitamin [One Daily Multivitamin] 1 each PO DAILY 03/28/17 [History] Simethicone [Gas Relief] 125 mg PO QID PRN 03/28/17 [History] traZODone [TraZODone] 50 mg PO HS 03/28/17 [History] 3 Allergy/AdvReac Type Severity Reaction Status Date / Time iodine Allergy Redness of Verified 03/28/17 19:25 Skin morphine Allergy Itching Verified 03/28/17 19:25 aspirin AdvReac Difficulty Verified 03/28/17 19:25 Breathing tape Allergy Rash Uncoded 08/11/16 11:00 All Systems PM: A 10-system review of systems was performed and is negative for pertinent findings except as documented above in the HPI. - Constitutional Constitutional: chills, fatigue, fever(s), malaise, weakness, no anorexia, no night sweats - Cardiovascular Cardiovascular ROS IM: dyspnea, no chest pain, no diaphoresis, no lightheadedness, no palpitations, no syncope - Respiratory Respiratory: cough, dyspnea, chest congestion, excessive phlegm production, change in phlegm color, no wheezing - Gastrointestinal Gastrointestinal: no abdominal pain, no diarrhea, no hematemesis, no hematochezia, no melena, no nausea, no vomiting - Genitourinary Genitourinary: no change in urinary stream, no dysuria, no flank pain - Constitutional Vitals: Temp Pulse Resp BP Pulse Ox 97.8 F 86 18 137/77 97 03/29/17 00:18 03/29/17 00:18 03/29/17 00:18 03/29/17 00:18 03/29/17 00:18 General appearance: Present: A&O X 3, answers questions appropriately - Head Head exam: Present: atraumatic, normocephalic - Neck Neck exam general surgery: Present: supple, trachea midline. Absent: lymphadenopathy - Respiratory Respiratory exam: Present: decreased breath sounds, rales, rhonchi. Absent: accessory muscle use, wheezes - Cardiovascular Cardiovascular exam: Present: RRR, +S1, +S2. Absent: diastolic murmur, gallop, rubs, systolic murmur - GI/Abdominal GI/Abdominal exam: Present: normal bowel sounds, soft, no peritoneal signs. Absent: distended, tenderness - Extremities Exam Extremities exam: Present: warm, radial pulses palpable and symmetrical. Absent : calf tenderness, cyanotic - Skin Skin exam: Present: dry, intact Internal Med - H&P Results - Labs CBC & Chem 7: 03/28/17 22:17 03/28/17 22:17
[2017-03-29] MEDS ORDERED: Albuterol 2.5 MG/3 ML NEBULIZER IH PRN ×2 (01:41→09:22)
[2017-03-29] MEDS ORDERED: Simethicone 80 MG TAB.CHEW PO PRN (01:41)
[2017-03-29] MEDS: Acetaminophen 325 MG TABLET PO PRN ×2 (03:03→12:12)
--- NOTE | 2017-03-29 03:49 | Event Note ---
Date of Encounter: 03/29/17 Time of Encounter: 03:46 Patient centered examined with medical specialist. Community acquired pneumonia with sepsis. We will start the patient on levofloxacin. She is on nighttime oxygen, not sure if she has COPD. No active wheezing on exam. She has a positive hepatojugular reflux and trace LE swelling. Will check echocardiogram
[2017-03-29 06:02] LABS: Hematocrit 29.1 % (35.3-44.9); Hemoglobin 10.1 g/dL (11.5-15.4); Mean Corpuscular HGB Conc 34.7 g/dL (31.6-35.5); Mean Corpuscular Hemoglobin 32.9 pg (28.0-33.3); Mean Corpuscular Volume 94.8 fL (83.0-100.0); Mean Platelet Volume 9.8 fL (9.4-12.4); Platelet Count 164 K/mcL (140-400); Red Blood Count 3.07 M/mcL (3.82-4.97)
[2017-03-29 06:09] LABS: BUN/Creatinine Ratio 10 (6-26); Blood Urea Nitrogen 6 mg/dL (7-20); Calcium 8.3 mg/dL (8.6-10.8); Carbon Dioxide 24 mEq/L (19-29); Chloride 107 mEq/L (98-109); Glucose 122 mg/dL (70-99); Magnesium 1.7 mg/dL (1.6-2.6); Osmolality,Calculated 283 (280-300); Phosphorous 2.2 mg/dL (2.3-4.7); Potassium 3.6 mEq/L (3.5-4.5); Sodium 137 mEq/L (136-145); eGFR For African Americans > 60 (> 60); eGFR For Non-African Americans > 60 (> 60)
[2017-03-29] MEDS: *HR* Heparin 5,000 UNIT/ML VIAL SQ SCH ×2 (06:23→17:11)
[2017-03-29 06:50] LABS: Anisocytosis 1+ (Not Present); Lymphocytes # 1.1 K/mcL (0.6-4.6); Monocytes # 0.2 K/mcL (0.0-1.3); Neutrophils # 9.4 K/mcL (1.6-8.9); Platelet Estimate Normal (Normal)
[2017-03-29] MEDS: Multivit/Ca/Min/Fe/FA 1 TAB TABLET PO SCH (08:21)
[2017-03-29] MEDS: Loratadine 10 MG TABLET PO SCH (08:22)
[2017-03-29] MEDS: Ziprasidone 80 MG CAPSULE PO SCH ×2 (08:22→20:06)
[2017-03-29] MEDS: Pregabalin 75 MG CAPSULE PO SCH ×2 (08:22→20:06)
[2017-03-29] MEDS: Baclofen 10 MG TABLET PO SCH ×3 (08:22→20:05)
[2017-03-29] MEDS: Topiramate 25 MG TABLET PO SCH ×2 (08:22→20:06)
[2017-03-29] MEDS ORDERED: Levofloxacin 750 MG/150 ML 750 MG/150 ML BAG IVPB SCH (09:00)
[2017-03-29] MEDS: Benzonatate 100 MG CAPSULE PO PRN ×2 (10:52→17:13)
[2017-03-29] MEDS: Doxycycline 100 MG CAPSULE PO SCH ×2 (12:11→20:05)
--- NOTE | 2017-03-29 14:34 | Event Note ---
Date of Encounter: 03/29/17 Time of Encounter: 10:30 Patient is awake and alert. Has not had much improvement in her symptoms since yesterday. Continues to have significant cough along with right upper chest wall pain. Has not made much sputum. Denies any fever overnight. Will change antibiotics to Rocephin and doxycycline as patient is on multiple medications which prolonged QT intervals. Add Tessalon Perles for cough. DVT prophylaxis with subcutaneous heparin. Await blood cultures and sputum cultures.
[2017-03-29] MEDS: traZODone 50 MG TABLET PO SCH (20:06)
[2017-03-29] MEDS: diazePAM 5 MG TABLET PO SCH (20:06)
[2017-03-29] MEDS ORDERED: NON-FORMULARY MEDICATION 1 EACH EACH (Oxygen [Oxygen] 2.5 L) NS SCH (21:00)
[2017-03-30 04:56] LABS: Basophils % 0.4 %; Eosinophils # 0.2 K/mcL (0.0-0.6); Eosinophils % 2.3 %; Hematocrit 32.7 % (35.3-44.9); Hemoglobin 11.2 g/dL (11.5-15.4); Immature Granulocytes % 0.8 % (0-4); Immature Platelets 2.2 % (1.1-6.1); Lymphocytes # 1.3 K/mcL (0.6-4.6); Lymphocytes % 17.1 %; Mean Corpuscular HGB Conc 34.3 g/dL (31.6-35.5); Mean Corpuscular Hemoglobin 32.7 pg (28.0-33.3); Mean Corpuscular Volume 95.3 fL (83.0-100.0); Mean Platelet Volume 9.6 fL (9.4-12.4); Monocytes # 0.5 K/mcL (0.0-1.3); Monocytes % 6.8 %; Neutrophils # 5.5 K/mcL (1.6-8.9); Platelet Count 245 K/mcL (140-400); Red Blood Count 3.43 M/mcL (3.82-4.97); Red Cell Distribution Width 13.2 % (11.5-14.5); Segmented Neutrophils % 72.6 %
[2017-03-30 05:15] LABS: BUN/Creatinine Ratio 16 (6-26); Blood Urea Nitrogen 11 mg/dL (7-20); Calcium 9.4 mg/dL (8.6-10.8); Carbon Dioxide 25 mEq/L (19-29); Chloride 110 mEq/L (98-109); Glucose 94 mg/dL (70-99); Osmolality,Calculated 291 (280-300); Potassium 3.7 mEq/L (3.5-4.5); Sodium 141 mEq/L (136-145); eGFR For African Americans > 60 (> 60); eGFR For Non-African Americans > 60 (> 60)
[2017-03-30] MEDS: *HR* Heparin 5,000 UNIT/ML VIAL SQ SCH ×2 (06:03→18:02)
[2017-03-30] MEDS: Baclofen 10 MG TABLET PO SCH ×3 (08:05→20:39)
[2017-03-30] MEDS: Loratadine 10 MG TABLET PO SCH (08:06)
[2017-03-30] MEDS: Multivit/Ca/Min/Fe/FA 1 TAB TABLET PO SCH (08:06)
[2017-03-30] MEDS: Pregabalin 75 MG CAPSULE PO SCH ×2 (08:06→20:40)
[2017-03-30] MEDS: Doxycycline 100 MG CAPSULE PO SCH ×2 (08:06→20:40)
[2017-03-30] MEDS: Topiramate 25 MG TABLET PO SCH ×2 (08:06→20:40)
[2017-03-30] MEDS: Benzonatate 100 MG CAPSULE PO PRN ×3 (08:06→20:40)
[2017-03-30] MEDS: Ziprasidone 80 MG CAPSULE PO SCH ×2 (08:11→20:40)
--- NOTE | 2017-03-30 13:44 | Internal Med Progress Note ---
Date of Encounter: 03/30/17 Time of Encounter: 13:44 - Assessment and plan (1) Community acquired pneumonia Current Visit: Yes Status: Acute Assessment and plan: Continue current antibiotics. Blood cultures have been negative. Patient is clinically getting better. Patient not having much sputum. Continue O2 supplementation as needed Qualifiers: Laterality: right Lung location: upper lobe of lung Qualified Code(s): J18.1 - Lobar pneumonia, unspecified organism (2) COPD (chronic obstructive pulmonary disease) Current Visit: Yes Status: Chronic Assessment and plan: continue bronchodilators as needed. Qualifiers: COPD type: unspecified COPD Qualified Code(s): J44.9 - Chronic obstructive pulmonary disease, unspecified (3) Hypertension Current Visit: Yes Status: Chronic Assessment and plan: Blood pressure remains elevated. Patient is not on any antihypertensives at home. We will start her on amlodipine. Qualifiers: Hypertension type: essential hypertension Qualified Code(s): I10 - Essential (primary) hypertension (4) Suspected CHF (congestive heart failure) Current Visit: Yes Status: Ruled-out Assessment and plan: Patient does not have any pedal edema or orthopnea. No features suggestive of CHF. BNP is normal. 2-D echocardiogram shows normal ejection fraction. Patient does have mild left ventricular diastolic dysfunction. - Subjective Interval history: Patient is feeling somewhat better today. Continues to have bouts of cough. No sputum. No fever or chills overnight. Right chest wall pain has also resolved. - Constitutional Vitals: Temp Pulse Resp BP Pulse Ox 97.4 F L 66 17 144/82 100 03/30/17 11:42 03/30/17 11:42 03/30/17 11:42 03/30/17 11:42 03/30/17 11:42 General appearance: Present: cooperative, mild distress, A&O X 3, answers questions appropriately - Neck Neck exam general surgery: Present: supple, trachea midline. Absent: lymphadenopathy - Respiratory Respiratory exam: Present: prolonged expiratory phase. Absent: accessory muscle use, rales, rhonchi, wheezes - Cardiovascular Cardiovascular exam: Present: RRR, +S1, +S2. Absent: diastolic murmur, gallop, rubs, systolic murmur - GI/Abdominal GI/Abdominal exam: Present: normal bowel sounds, soft, no peritoneal signs. Absent: distended, tenderness - Extremities Exam Extremities exam: Present: warm, radial pulses palpable and symmetrical. Absent : calf tenderness, cyanotic, pedal edema - Neurological Exam Neurological exam: Present: alert, oriented X3, no focal deficits. Absent: facial droop, speech deficit - Skin Skin exam: Present: dry, intact Internal Medicine: Result - Labs CBC & Chem 7: 03/30/17 04:16 03/30/17 04:16 Labs: Short CBC 03/30/17 Range/Units 04:16 WBC 7.5 (4.3-11.1) K/mcL Hgb 11.2 L (11.5-15.4) g/dL Hct 32.7 L (35.3-44.9) % Plt Count 245 (140-400) K/mcL Neutrophils # 5.5 (1.6-8.9) K/mcL BMP 03/30/17 04:16 Sodium 141 Potassium 3.7 Chloride 110 H Carbon Dioxide 25 BUN 11 Creatinine 0.68 Glucose 94 Calcium 9.4 - ABG Interpretation ABG results: PT/INR, D-dimer PT 12.8 Seconds (9.4-12.1) H 03/28/17 22:17 - Impressions Impressions Echocardiogram 03/29/17 01:26 Impressions: LVEF 60-65%. Mild left ventricular diastolic dysfunction. Normal right ventricular structure and function. No significant valvular dysfunction. No pulmonary hypertension. Left Ventricular Wall Motion: Rest Echo Findings All wall segments showed normal motion. Findings: Study Quality * Technically adequate exam. ECG Findings * Normal sinus rhythm. Left Ventricle * LVEF 60-65%. * Normal LV chamber size, wall thickness and function. * Mild left ventricular diastolic dysfunction. Right Ventricle * Normal right ventricular structure and function. Left Atrium * Normal left atrial size. Right Atrium * Normal right atrial size. Aortic Valve * No aortic regurgitation. * Aortic valve not well visualized. * No aortic stenosis. Mitral Valve * Normal mitral valve structure. * No mitral stenosis. * Trace mitral regurgitation. Tricuspid Valve * Tricuspid valve not well visualized. * No tricuspid regurgitation. * Estimated RA pressure is 3 mmHg. * Estimated RVSP is 20 mmHg. * No pulmonary hypertension. Pulmonic Valve * Pulmonic valve is not well visualized. * No pulmonic stenosis. * Trace pulmonic regurgitation. Pulmonary Artery * Pulmonary artery not well visualized. Aorta * Normally sized aortic root. Pericardium * There is no pericardial effusion present. Interatrial Septum * No evidence of PFO by color Doppler. IVC * Normal IVC dimensions and inspiratory collapse. Consult Discharge Plan - Plan Referrals: Inga Birch, [employer] [Primary Care Provider] -
[2017-03-30] MEDS: amLODIPine 5 MG TABLET PO SCH (14:55)
[2017-03-30] MEDS: diazePAM 5 MG TABLET PO SCH (20:40)
[2017-03-30] MEDS: Acetaminophen 325 MG TABLET PO PRN (20:40)
[2017-03-30] MEDS: traZODone 50 MG TABLET PO SCH (20:40)
[2017-03-31] MEDS: *HR* Heparin 5,000 UNIT/ML VIAL SQ SCH (05:26)
[2017-03-31] MEDS: Benzonatate 100 MG CAPSULE PO PRN ×2 (05:26→10:24)
[2017-03-31] MEDS: Doxycycline 100 MG CAPSULE PO SCH (09:29)
[2017-03-31] MEDS: amLODIPine 5 MG TABLET PO SCH (09:29)
[2017-03-31] MEDS: Loratadine 10 MG TABLET PO SCH (09:29)
[2017-03-31] MEDS: Ziprasidone 80 MG CAPSULE PO SCH (09:29)
[2017-03-31] MEDS: Topiramate 25 MG TABLET PO SCH (09:29)
[2017-03-31] MEDS: Baclofen 10 MG TABLET PO SCH (09:29)
[2017-03-31] MEDS: Pregabalin 75 MG CAPSULE PO SCH (09:29)
[2017-03-31] MEDS: Multivit/Ca/Min/Fe/FA 1 TAB TABLET PO SCH (09:36)
[2017-03-31] MEDS ORDERED: Acetaminophen/Butalbital/CaffeineTABLET PO PRN (10:08)
--- NOTE | 2017-03-31 11:02 | Discharge Summary ---
Date of Encounter: 03/31/17 Time of Encounter: 09:50 - Discharge Diagnosis (1) Community acquired pneumonia Priority: Primary Status: Acute Qualifiers: Laterality: right Lung location: upper lobe of lung Qualified Code(s): J18.1 - Lobar pneumonia, unspecified organism (2) COPD (chronic obstructive pulmonary disease) Priority: Secondary Status: Chronic Qualifiers: COPD type: unspecified COPD Qualified Code(s): J44.9 - Chronic obstructive pulmonary disease, unspecified (3) Hypertension Priority: Secondary Status: Chronic Qualifiers: Hypertension type: essential hypertension Qualified Code(s): I10 - Essential (primary) hypertension (4) Suspected CHF (congestive heart failure) Priority: Secondary Status: Ruled-out (5) Chronic respiratory failure with hypoxia Priority: Secondary Status: Chronic - Discharge Medications Prescriptions: amLODIPine [Norvasc] 5 mg PO DAILY #30 tablet Benzonatate [Tessalon] 200 mg PO TID PRN #30 capsule PRN Reason: Cough Cefdinir [Omnicef] 300 mg PO BID #20 capsule Doxycycline 100 mg PO BID #20 capsule Home Medications: Baclofen 20 mg PO TID 01/19/16 [History] Citalopram Hydrobromide [Celexa] 40 mg PO HS 01/19/16 [History] Levothyroxine [Synthroid] 112 mcg PO DAILY 01/19/16 [History] Omeprazole [PriLOSEC] 40 mg PO DAILY 01/19/16 [History] Oxygen 2.5 l NS HS 01/19/16 [History] Pregabalin [Lyrica] 75 mg PO BID 01/19/16 [History] Simvastatin [Zocor] 40 mg PO HS 01/19/16 [History] Trihexyphenidyl HCl 5 mg PO BID 01/19/16 [History] Ziprasidone [Geodon] 80 mg PO BID 01/19/16 [History] Albuterol Neb [Proventil Neb] 2.5 mg IH [id number] PRN #0 inhsol 01/22/16 [Rx] diazePAM [Valium] 5 mg PO HS #30 tablet 01/22/16 [Rx] Topiramate [Topamax] 50 mg PO BID 08/11/16 [History] Cetirizine HCl [Zyrtec] 10 mg PO DAILY 03/28/17 [History] Ferrous Sulfate [Iron] 325 mg PO DAILY 03/28/17 [History] Multivitamin [One Daily Multivitamin] 1 each PO DAILY 03/28/17 [History] Simethicone [Gas Relief] 125 mg PO QID PRN 03/28/17 [History] traZODone [TraZODone] 50 mg PO HS 03/28/17 [History] Benzonatate [Tessalon] 200 mg PO TID PRN #30 capsule 03/31/17 [Rx] Cefdinir [Omnicef] 300 mg PO BID #20 capsule 03/31/17 [Rx] Doxycycline 100 mg PO BID #20 capsule 03/31/17 [Rx] amLODIPine [Norvasc] 5 mg PO DAILY #30 tablet 03/31/17 [Rx] Allergies/Adverse Reactions: 3 Allergy/AdvReac Type Severity Reaction Status Date / Time iodine Allergy Redness of Verified 03/28/17 19:25 Skin morphine Allergy Itching Verified 03/28/17 19:25 aspirin AdvReac Difficulty Verified 03/28/17 19:25 Breathing tape Allergy Rash Uncoded 08/11/16 11:00 Procedures/tests Complete & Pending: Procedures Performed prior 72 hours Category Date Time Status ECG 12 lead ECG [ECG] Routine Y 03/29/17 12:02 Completed EV echocardiogram Routine Y 03/29/17 01:26 Completed Date of admission: 03/28/17 23:11 Primary care physician: Inga Birch CNP Consults: 03/29/17 01:20 Consult to Occupational Therapy [CONS] Routine Comment: Evaluate, develop and implement POC Reason for Consult: patient has pneumonia, copd, hx of fall Consult to Physical Therapy [CONS] Routine Comment: Evaluate, develop and implement POC Reason for Consult: patient has pneumonia, copd, hx of falls Discharging clinician: Anastacia Goyal Anticipated date of discharge: 03/31/17 - Patient Status Disposition: Home, Self-Care Condition: Good Functional capacity at discharge: independent ambulation Overall status at discharge: patient is progressing back to baseline - Discharge Instructions Instructions: Chronic Obstructive Pulmonary Disease (DC), Chronic Hypertension (DC), Pneumonia (DC) Follow Up With: Inga Birch CNP [Primary Care Provider] - 04/05/17 3:00 pm (Please follow up as schedule...) - Diet and Activity Activity: wear oxygen at night Diet: low fat, low cholesterol, low salt diet Hospital course: Ms. Dee is a 61 year old female patient with history of COPD, chronic nocturnal hypoxia who presented to the ER with complaints of shortness of breath and right-sided chest pain. Chest x-ray done in the ER showed that the patient had right upper lobe pneumonia. She was started on IV antibiotics for this. She had significant nonproductive cough. She was also requiring O2 supplementation even during the day. With this treatment plan, her symptoms have improved. She is now doing much better although she does remain hypoxic and is requiring continuous O2 supplementation. She will be provided with home oxygen due to her underlying history of COPD. She is clinically stable for discharge home on oral antibiotics to complete treatment course for her pneumonia. - Time Spent with Patient Total time spent providing and/or coordinating discharge services: Less than 30 minutes (25 min) - Constitutional Vitals: Temp Pulse Resp BP Pulse Ox 98.2 F 73 18 132/79 95 03/31/17 06:53 03/31/17 06:53 03/31/17 06:53 03/31/17 06:53 03/31/17 09:37 General appearance: Present: cooperative, mild distress, A&O X 3, answers questions appropriately - Respiratory Respiratory exam: Present: prolonged expiratory phase. Absent: accessory muscle use, rales, rhonchi, wheezes - Cardiovascular Cardiovascular exam: Present: RRR, +S1, +S2. Absent: diastolic murmur, gallop, rubs, systolic murmur - GI/Abdominal GI/Abdominal exam: Present: normal bowel sounds, soft, no peritoneal signs. Absent: distended, tenderness - Extremities Exam Extremities exam: Present: warm, radial pulses palpable and symmetrical. Absent : calf tenderness, cyanotic, pedal edema
[2017-03-31 15:59] VITALS: BP 126/67
[2017-03-31] MEDS ORDERED: FLUARIX QUAD 2017-18 36MOS UP/PF 0.5 ML SYRINGE IM ONE (16:11)
== END 2017-03-31 16:44 | disposition home or self-care (01) ==
LOC: 2ANU 18:54 → EMEROO 18:54 → 2ANU 23:35
PROVIDERS: ADMIT Internal Medicine; ATTEND Internal Medicine

== ENCOUNTER 2017-04-26 00:18 | Observation (INO) ==
[2017-04-26] MEDS ORDERED: 0.9 % Sodium Chloride 1,000 ML IVC ONE (00:32)
[2017-04-26] MEDS ORDERED: Naloxone 0.4 MG/ML INJ IVP ONE (00:32)
--- NOTE | 2017-04-26 00:46 | Emergency Department Note ---
Disposition Clinical Impression: Polypharmacy Altered mental status Qualifiers: Altered mental status type: unspecified Qualified Code(s): R41.82 - Altered mental status, unspecified Disposition: Admitted As Inpatient Condition: Fair Referrals: Inga Birch CNP [Primary Care Provider] - Forms: ED Satisfaction Letter, Work/School Release General Adult HPI - General Chief complaint: ED General Medical Stated complaint: unresponsive Time Seen by Provider: 04/26/17 00:22 Source: family, EMS Mode of arrival: EMS Limitations: no limitations Nursing Notes Reviewed: Yes Vital Signs Reviewed: Yes - History of Present Illness HPI Narrative: Patient presents for evaluation of altered mental status. Patient was found by her in the trailer being hard to wake up. Last known well was 5 hours prior to arrival. The patient went to the bedroom and took her nightly medications which include sleeping pills. Patient has had 3 episodes of this in the past. Patient initially presents sleeping and responding to sternal rub. Patient withdraws from pain to all 4 extremities. Gag reflex is intact. Pupils are 3 and reactive. Patient may have had initial response to Narcan by EMS. Narcan will be redosed in the emergency department. The patient will go evaluation for altered mental status including a head CT at, blood work, chest x -ray, urinalysis. - Related Data Home Medications Medication Instructions Recorded Confirmed Baclofen 20 mg PO TID 01/19/16 03/28/17 Citalopram Hydrobromide [Celexa] 40 mg PO HS 01/19/16 03/28/17 Levothyroxine [Synthroid] 112 mcg PO DAILY 01/19/16 03/28/17 Omeprazole [PriLOSEC] 40 mg PO DAILY 01/19/16 03/28/17 Oxygen 2.5 l NS HS 01/19/16 03/28/17 Pregabalin [Lyrica] 75 mg PO BID 01/19/16 03/28/17 Simvastatin [Zocor] 40 mg PO HS 01/19/16 03/28/17 Trihexyphenidyl HCl 5 mg PO BID 01/19/16 03/28/17 Ziprasidone [Geodon] 80 mg PO BID 01/19/16 03/28/17 Topiramate [Topamax] 50 mg PO BID 08/11/16 03/28/17 Cetirizine HCl [Zyrtec] 10 mg PO DAILY 03/28/17 03/28/17 Ferrous Sulfate [Iron] 325 mg PO DAILY 03/28/17 03/28/17 Multivitamin [One Daily 1 each PO DAILY 03/28/17 03/28/17 Multivitamin] Simethicone [Gas Relief] 125 mg PO QID PRN 03/28/17 03/28/17 traZODone [TraZODone] 50 mg PO HS 03/28/17 03/28/17 Previous Rx's Medication Instructions Recorded Albuterol Neb [Proventil Neb] 2.5 mg IH [id number] PRN #0 inhsol 01/22/16 diazePAM [Valium] 5 mg PO HS #30 tablet 01/22/16 Benzonatate [Tessalon] 200 mg PO TID PRN #30 capsule 03/31/17 Cefdinir [Omnicef] 300 mg PO BID #20 capsule 03/31/17 Doxycycline 100 mg PO BID #20 capsule 03/31/17 amLODIPine [Norvasc] 5 mg PO DAILY #30 tablet 03/31/17 Allergies Allergy/AdvReac Type Severity Reaction Status Date / Time iodine Allergy Redness of Verified 03/28/17 19:25 Skin morphine Allergy Itching Verified 03/28/17 19:25 aspirin AdvReac Difficulty Verified 03/28/17 19:25 Breathing tape Allergy Rash Uncoded 08/11/16 11:00 Limitations: ROS unobtainable due to patients medical condition Past Medical History - Past Medical History Medical history: Reports: asthma, GERD, thyroid disease Surgical history: Reports: appendectomy, , orthopedic, other, other Psychiatric history: Reports: anxiety, depression PLAN NURSE history: Reports: non-contributory - Social History Smoking Status: Current some day smoker Smokeless Tobacco Status: No Alcohol use: Reports: none Drug use: Reports: none Physical Exam General appearance: Decreased responsiveness. Eyes: anicteric sclerae, moist conjunctivae; PERRL HENT: Atraumatic; oropharynx clear with moist mucous membranes and no mucosal ulcerations Neck: Normal inspection; Trachea midline; FROM, supple Lungs: CTA, with normal respiratory effort and no intercostal retractions CV: RRR, no MRGs Abdomen: Soft, non-tender; no rebound or gaurding Extremities: No peripheral edema or extremity lymphadenopathy Skin: Normal temperature; no rash, ulcers or lesions Psych: Appropriate mood and affect Neuro: Pupils 3 and reactive, withdraws all 4 extremities to pain. Response to sternal rub. Gag reflex intact Course - Reevaluation(s) Reevaluation #1: The patient's symptoms have been improving during her stay. She is now arousable with mild stimulation of the shoulder. Patient no longer requires sternal rub. Patient is able to open her eyes to command. Patient moves extremities in regard to painful stimulus. Upon discussion with the family her last known well was 3 PM on 04/25/17. She took her nightly medications which include her sleeping medication before going to bed between 6 PM and 7 PM. - Consultations Consultation #1: Discussed with hospitalist. Patient accepted for admission Vital Signs Temperature 97.4 F L 04/26/17 01:11 Pulse Rate 57 04/26/17 01:11 Respiratory Rate 16 04/26/17 01:11 Blood Pressure 118/60 04/26/17 01:11 O2 Sat by Pulse Oximetry 100 04/26/17 01:11 Temperature 97.4 F L 04/26/17 01:11 Pulse Rate 56 04/26/17 03:26 Respiratory Rate 16 04/26/17 03:26 Blood Pressure 109/56 04/26/17 03:26 O2 Sat by Pulse Oximetry 99 04/26/17 03:26 Oxygen Delivery Oxygen Delivery Nasal Cannula Medical Decision Making - Medical Records Medical records reviewed: Yes I reviewed the patient's medical records. - Lab Data Lab results reviewed: Yes I reviewed the patient's lab results. Result diagrams: 04/26/17 02:09 04/26/17 01:29 Lab Results 04/26/17 04/26/17 04/26/17 Range/Units 01:19 01:29 01:29 WBC (4.3-11.1) K/mcL RBC (3.82-4.97) M/mcL Hgb (11.5-15.4) g/dL Hct (35.3-44.9) % MCV (83.0-100.0) fL MCH (28.0-33.3) pg MCHC (31.6-35.5) g/dL RDW (11.5-14.5) % Plt Count (140-400) K/mcL MPV (9.4-12.4) fL Immature Gran % (0-4) % Seg Neutrophils % % Lymphocytes % % Monocytes % % Eosinophils % % Basophils % % Neutrophils # (1.6-8.9) K/mcL Lymphocytes # (0.6-4.6) K/mcL Monocytes # (0.0-1.3) K/mcL Eosinophils # (0.0-0.6) K/mcL Basophils # (0.0-0.2) K/mcL Platelet Estimate (Normal) Immature Plt Fraction (1.1-6.1) % PT (9.4-12.1) Seconds INR Sodium 142 (136-145) mEq/L Potassium 3.9 (3.5-4.5) mEq/L Chloride 112 H (98-109) mEq/L Carbon Dioxide 19 (19-29) mEq/L BUN 11 (7-20) mg/dL Creatinine 0.83 (0.57-1.11) mg/dL Est GFR ( Amer) > 60 (> 60) Est GFR (Non-Af Amer) > 60 (> 60) BUN/Creatinine Ratio 13 (6-26) Glucose 94 (70-99) mg/dL POC Glucose 103 H (58-89) Calculated Osmolality 293 (280-300) Calcium 8.8 (8.6-10.8) mg/dL Total Bilirubin 0.2 (0.2-1.2) mg/dL Direct Bilirubin 0.1 (0.0-0.5) mg/dL Indirect Bilirubin 0.1 (0.0-1.2) mg/dL AST 15 (5-34) Units/L ALT 9 (0-55) Units/L Alkaline Phosphatase 66 (38-126) Units/L Creatine Kinase 92 (29-168) Units/L Troponin I 0.00 (0-0.03) ng/mL Serum Total Protein 6.2 (6.0-8.3) g/dL Albumin 3.4 L (3.5-5.0) g/dL Globulin 2.8 (2.4-3.5) g/dL Albumin/Globulin Ratio 1.2 (1.1-2.2) TSH TNP Urine Color (Yellow) Urine Clarity (Clear) Urine pH (5.0-8.0) pH Units Ur Specific Sachse (1.010-1.025) Urine Protein (Neg-Trace) mg/dL Urine Glucose (UA) (Normal) mg/dL Urine Ketones (Negative) mg/dL Urine Blood (Negative) Urine Nitrite (Negative) Urine Bilirubin (Negative) Urine Urobilinogen (Normal) mg/dL Ur Leukocyte Esterase (Negative) Ur Culture Indicated? (NO) Urine Opiates Screen (Thoqdi=084) ng/mL Acetaminophen < 1.0 L (10-30) mcg/mL Ur Barbiturates Screen (Pshxzz=501) ng/mL Ur Phencyclidine Scrn (Cutoff=25) ng/mL Ur Amphetamines Screen (Bkzlzo=8202) ng/mL U Benzodiazepines Scrn (Vuyhuu=373) ng/mL Urine Cocaine Screen (Cutoff= 300) ng/mL U Marijuana (THC) Screen (Cutoff = 50) ng/mL Ethyl Alcohol < 10 (0-10) mg/dL 04/26/17 04/26/17 04/26/17 Range/Units 01:50 01:50 01:58 WBC (4.3-11.1) K/mcL RBC (3.82-4.97) M/mcL Hgb (11.5-15.4) g/dL Hct (35.3-44.9) % MCV (83.0-100.0) fL MCH (28.0-33.3) pg MCHC (31.6-35.5) g/dL RDW (11.5-14.5) % Plt Count (140-400) K/mcL MPV (9.4-12.4) fL Immature Gran % (0-4) % Seg Neutrophils % % Lymphocytes % % Monocytes % % Eosinophils % % Basophils % % Neutrophils # (1.6-8.9) K/mcL Lymphocytes # (0.6-4.6) K/mcL Monocytes # (0.0-1.3) K/mcL Eosinophils # (0.0-0.6) K/mcL Basophils # (0.0-0.2) K/mcL Platelet Estimate (Normal) Immature Plt Fraction (1.1-6.1) % PT 10.4 (9.4-12.1) Seconds INR 1.0 Sodium (136-145) mEq/L Potassium (3.5-4.5) mEq/L Chloride (98-109) mEq/L Carbon Dioxide (19-29) mEq/L BUN (7-20) mg/dL Creatinine (0.57-1.11) mg/dL Est GFR ( Amer) (> 60) Est GFR (Non-Af Amer) (> 60) BUN/Creatinine Ratio (6-26) Glucose (70-99) mg/dL POC Glucose (58-89) Calculated Osmolality (280-300) Calcium (8.6-10.8) mg/dL Total Bilirubin (0.2-1.2) mg/dL Direct Bilirubin (0.0-0.5) mg/dL Indirect Bilirubin (0.0-1.2) mg/dL AST (5-34) Units/L ALT (0-55) Units/L Alkaline Phosphatase (38-126) Units/L Creatine Kinase (29-168) Units/L Troponin I (0-0.03) ng/mL Serum Total Protein (6.0-8.3) g/dL Albumin (3.5-5.0) g/dL Globulin (2.4-3.5) g/dL Albumin/Globulin Ratio (1.1-2.2) TSH Urine Color Yellow (Yellow) Urine Clarity Clear (Clear) Urine pH 6.5 (5.0-8.0) pH Units Ur Specific Sachse 1.011 (1.010-1.025) Urine Protein Negative (Neg-Trace) mg/dL Urine Glucose (UA) Normal (Normal) mg/dL Urine Ketones Negative (Negative) mg/dL Urine Blood Negative (Negative) Urine Nitrite Negative (Negative) Urine Bilirubin Negative (Negative) Urine Urobilinogen Normal (Normal) mg/dL Ur Leukocyte Esterase Negative (Negative) Ur Culture Indicated? NO (NO) Urine Opiates Screen Negative (Uxemyk=619) ng/mL Acetaminophen (10-30) mcg/mL Ur Barbiturates Screen Negative (Umzkdn=354) ng/mL Ur Phencyclidine Scrn Negative (Cutoff=25) ng/mL Ur Amphetamines Screen Negative (Yktxbr=0128) ng/mL U Benzodiazepines Scrn Positive H (Cngaxv=910) ng/mL Urine Cocaine Screen Negative (Cutoff= 300) ng/mL U Marijuana (THC) Screen Negative (Cutoff = 50) ng/mL Ethyl Alcohol (0-10) mg/dL 04/26/17 04/26/17 Range/Units 02:09 02:09 WBC 5.2 (4.3-11.1) K/mcL RBC 3.46 L (3.82-4.97) M/mcL Hgb 11.2 L (11.5-15.4) g/dL Hct 34.0 L (35.3-44.9) % MCV 98.3 (83.0-100.0) fL MCH 32.4 (28.0-33.3) pg MCHC 32.9 (31.6-35.5) g/dL RDW 13.7 (11.5-14.5) % Plt Count 172 (140-400) K/mcL MPV 10.6 (9.4-12.4) fL Immature Gran % 0.2 (0-4) % Seg Neutrophils % 58.3 % Lymphocytes % 29.2 % Monocytes % 9.0 % Eosinophils % 2.7 % Basophils % 0.6 % Neutrophils # 3.0 (1.6-8.9) K/mcL Lymphocytes # 1.5 (0.6-4.6) K/mcL Monocytes # 0.5 (0.0-1.3) K/mcL Eosinophils # 0.1 (0.0-0.6) K/mcL Basophils # 0.0 (0.0-0.2) K/mcL Platelet Estimate Normal (Normal) Immature Plt Fraction 4.7 (1.1-6.1) % PT (9.4-12.1) Seconds INR Sodium (136-145) mEq/L Potassium (3.5-4.5) mEq/L Chloride (98-109) mEq/L Carbon Dioxide (19-29) mEq/L BUN (7-20) mg/dL Creatinine (0.57-1.11) mg/dL Est GFR ( Amer) (> 60) Est GFR (Non-Af Amer) (> 60) BUN/Creatinine Ratio (6-26) Glucose (70-99) mg/dL POC Glucose (58-89) Calculated Osmolality (280-300) Calcium (8.6-10.8) mg/dL Total Bilirubin (0.2-1.2) mg/dL Direct Bilirubin (0.0-0.5) mg/dL Indirect Bilirubin (0.0-1.2) mg/dL AST (5-34) Units/L ALT (0-55) Units/L Alkaline Phosphatase (38-126) Units/L Creatine Kinase (29-168) Units/L Troponin I (0-0.03) ng/mL Serum Total Protein (6.0-8.3) g/dL Albumin (3.5-5.0) g/dL Globulin (2.4-3.5) g/dL Albumin/Globulin Ratio (1.1-2.2) TSH 2.529 Urine Color (Yellow) Urine Clarity (Clear) Urine pH (5.0-8.0) pH Units Ur Specific Sachse (1.010-1.025) Urine Protein (Neg-Trace) mg/dL Urine Glucose (UA) (Normal) mg/dL Urine Ketones (Negative) mg/dL Urine Blood (Negative) Urine Nitrite (Negative) Urine Bilirubin (Negative) Urine Urobilinogen (Normal) mg/dL Ur Leukocyte Esterase (Negative) Ur Culture Indicated? (NO) Urine Opiates Screen (Xpahww=560) ng/mL Acetaminophen (10-30) mcg/mL Ur Barbiturates Screen (Vmwnxh=004) ng/mL Ur Phencyclidine Scrn (Cutoff=25) ng/mL Ur Amphetamines Screen (Iqlnlv=9725) ng/mL U Benzodiazepines Scrn (Lcfowa=511) ng/mL Urine Cocaine Screen (Cutoff= 300) ng/mL U Marijuana (THC) Screen (Cutoff = 50) ng/mL Ethyl Alcohol (0-10) mg/dL - Radiology Data Radiology results reviewed: Yes I reviewed the patient's radiology results. - EKG Data EKG #1 EKG attestation: Yes I reviewed and interpreted this EKG. EKG results narrative: EKG shows sinus rhythm with ventricular rate of 65. KS interval 174. QRS 95. Patient has no significant ST elevations or depressions. Patient's EKG unchanged from previous of 03/29/2017.
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
[2017-04-26 01:56] LABS: Alanine Aminotransferase 9 Units/L (0-55); Albumin 3.4 g/dL (3.5-5.0); Albumin/Globulin Ratio 1.2 (1.1-2.2); Alkaline Phosphatase 66 Units/L (38-126); Aspartate Amino Transferase 15 Units/L (5-34); BUN/Creatinine Ratio 13 (6-26); Bilirubin,Direct 0.1 mg/dL (0.0-0.5); Bilirubin,Indirect 0.1 mg/dL (0.0-1.2); Bilirubin,Total 0.2 mg/dL (0.2-1.2); Blood Urea Nitrogen 11 mg/dL (7-20); Calcium 8.8 mg/dL (8.6-10.8); Carbon Dioxide 19 mEq/L (19-29); Chloride 112 mEq/L (98-109); Creatine Kinase 92 Units/L (29-168); Globulin 2.8 g/dL (2.4-3.5); Glucose 94 mg/dL (70-99); Osmolality,Calculated 293 (280-300); Sodium 142 mEq/L (136-145); Total Protein 6.2 g/dL (6.0-8.3); eGFR For African Americans > 60 (> 60); eGFR For Non-African Americans > 60 (> 60)
[2017-04-26 01:58] LABS: Acetaminophen < 1.0 mcg/mL (10-30); Ethanol < 10 mg/dL (0-10); Potassium 3.9 mEq/L (3.5-4.5)
[2017-04-26 02:02] LABS: Bilirubin,Urine Negative (Negative); Blood,Urine Negative (Negative); Clarity,Urine Clear (Clear); Color,Urine Yellow (Yellow); Glucose,Urine (UA) Normal (Normal); Ketones,Urine Negative (Negative); Leukocyte Esterase,Urine Negative (Negative); Nitrite,Urine Negative (Negative); PH,Urine 6.5 pH Units (5.0-8.0); Protein,Urine Negative (Neg-Trace); Specific Gravity,Urine 1.011 (1.010-1.025); Urobilinogen,Urine Normal (Normal)
[2017-04-26 02:09] LABS: Amphetamine Screen,Urine Negative ng/mL (Cutoff=1000); Barbiturate Screen,Urine Negative ng/mL (Cutoff=200); Benzodiazepines Screen,Urine Positive ng/mL (Cutoff=200); Cannabinoid Screen,Urine Negative ng/mL (Cutoff = 50); Cocaine Screen,Urine Negative ng/mL (Cutoff= 300); Opiate Screen,Urine Negative ng/mL (Cutoff=300); Phencyclidine Screen,Urine Negative ng/mL (Cutoff=25)
[2017-04-26 02:22] LABS: Basophils % 0.6 %; Eosinophils # 0.1 K/mcL (0.0-0.6); Eosinophils % 2.7 %; Hemoglobin 11.2 g/dL (11.5-15.4); Immature Granulocytes % 0.2 % (0-4); Immature Platelets 4.7 % (1.1-6.1); Lymphocytes # 1.5 K/mcL (0.6-4.6); Lymphocytes % 29.2 %; Mean Corpuscular HGB Conc 32.9 g/dL (31.6-35.5); Mean Corpuscular Hemoglobin 32.4 pg (28.0-33.3); Mean Corpuscular Volume 98.3 fL (83.0-100.0); Mean Platelet Volume 10.6 fL (9.4-12.4); Monocytes # 0.5 K/mcL (0.0-1.3); Platelet Count 172 K/mcL (140-400); Red Blood Count 3.46 M/mcL (3.82-4.97); Red Cell Distribution Width 13.7 % (11.5-14.5); Segmented Neutrophils % 58.3 %
[2017-04-26 02:23] LABS: Prothrombin Time 10.4 Seconds (9.4-12.1)
[2017-04-26 02:47] LABS: Platelet Estimate Normal (Normal)
[2017-04-26] MEDS ORDERED: Ondansetron 4 MG/2 ML VIAL IVP PRN (04:49)
[2017-04-26] MEDS ORDERED: Naloxone 0.4 MG/ML INJ IVP PRN (04:49)
[2017-04-26] MEDS ORDERED: Albuterol 2.5 MG/3 ML NEBULIZER IH PRN (04:52)
[2017-04-26] MEDS ORDERED: 0.9 % Sodium Chloride 1,000 ML IVC SCH (05:00)
[2017-04-26] MEDS: *HR* Heparin 5,000 UNIT/ML VIAL SQ SCH ×2 (05:18→17:32)
[2017-04-26 06:27] LABS: ABG Base Excess -1 mEq/L (-2 to 3); ABG HCO3 26 mEq/L (21-27); ABG Oxygen Saturation 97 % (95-98); ABG PCO2 50 mmHg (35-45); ABG PH 7.32 pH Units (7.32-7.45); ABG PO2 98 mmHg (85-104); ABG TCO2 27 mEq/L (20-26)
--- NOTE | 2017-04-26 06:44 | Internal Med History&Physical ---
Date of Encounter: 04/26/17 Time of Encounter: 05:00 Assessment and Plan (1) Altered mental status Current visit: Yes Status: Acute Patient has altered mental status with nonresponsive. Per patient's , she has similar problem before. Patient is on multiple sedating medications. Her urine screen shows positive for benzo. Patient has no signs of infection. CT head negative. Her ABG and TSH are unremarkable and not explain for her AMS. - Consider caused by multipharmacy - Place patient on continuous cardiac monitoring, continuous pulse oximetry monitoring. - Keep nothing by mouth at this point. IV fluid for hydration. - Continue close monitor patient. Qualifiers: Altered mental status type: somnolence Qualified Code(s): R40.0 - Somnolence (2) Polypharmacy Current visit: Yes Status: Acute Patient is on multiple sedating medications. May need adjustment of the patient resume normal mental status (3) DVT prophylaxis Current visit: No Status: Acute Heparin subcutaneously (4) COPD (chronic obstructive pulmonary disease) Current visit: No Status: Chronic No wheezing. No signs of exacerbation. Place patient on low rate nasal cannula oxygen. Continue closely monitor patient Qualifiers: COPD type: unspecified COPD Qualified Code(s): J44.9 - Chronic obstructive pulmonary disease, unspecified (5) Hypothyroidism Current visit: No Status: Chronic TSH within normal limits. Resume home medication after patient resumes diet. Qualifiers: Hypothyroidism type: unspecified Qualified Code(s): E03.9 - Hypothyroidism , unspecified Internal Medicine - H&P: HPI Chief complaint: Altered mental status Admitted From: Home Plans for Post Hospital Care: Home History of present illness: Ms. Dee is a 61 year old female with history of hypothyroidism, COPD, presented to ER for altered mental status. Around from 7 PM, patient's found she cannot be waken up. Patient took 'sleeping pill' earlier before this happened. The dose is unknown. Patient's denies patient did complain any pain, fever, nausea, or vomiting. EMS and ER gave pt two dose of Narcan separately. After treatment, patient's mental status has slightly improved. When saw her on floor, she can open eyes on verbal stimulation. She can follow instruction to move all her 4 limbs. Patient's vital signs stable. Patient is admitted for further monitoring. Past Med Surg Social Fam HX - Past Medical History Medical history: asthma, cancer, GERD, thyroid disease Psychiatric history: anxiety, depression - Past Surgical History Surgical History: appendectomy, , orthopedic, other, other - Social History Smoking Status: Current every day smoker Smokeless Tobacco Status: No Alcohol use: none Drug use: none - Family History Father Family Member Ethnicity: Non- Living Status: Age at : 91 Cause of : Prostate and Bone cancer Hx Family Cardiac Disorders: Yes (HLD) Hx Family Respiratory Disorders: No Hx Family Cancer: Yes (Prostate, Bone) Hx Family GI Disorders: No Hx Family Genitourinary Disorders: No Hx Family Endocrine Disorder: No Hx Family Musculoskeletal Disorders: No Hx Family Neuromuscular Disorders: No Hx Family Neurologic Disorders: No Hx Family HEENT Disorders: No Hx Family Autoimmune Disorders: No Hx Family Reproductive Disorders: No Hx Family Psychosocial Disorders: No Hx Family Medical Disorders: No Internal Medicine - H&P: Meds Baclofen 20 mg PO TID 01/19/16 [History] Citalopram Hydrobromide [Celexa] 40 mg PO HS 01/19/16 [History] Levothyroxine [Synthroid] 112 mcg PO DAILY 01/19/16 [History] Omeprazole [PriLOSEC] 40 mg PO DAILY 01/19/16 [History] Oxygen 2.5 l NS HS 01/19/16 [History] Pregabalin [Lyrica] 75 mg PO BID 01/19/16 [History] Simvastatin [Zocor] 40 mg PO HS 01/19/16 [History] Trihexyphenidyl HCl 5 mg PO BID 01/19/16 [History] Ziprasidone [Geodon] 60 mg PO BID 01/19/16 [History] Albuterol Neb [Proventil Neb] 2.5 mg IH [id number] PRN #0 inhsol 01/22/16 [Rx] diazePAM [Valium] 5 mg PO HS #30 tablet 01/22/16 [Rx] Topiramate [Topamax] 50 mg PO BID 08/11/16 [History] Cetirizine HCl [Zyrtec] 10 mg PO DAILY 03/28/17 [History] Ferrous Sulfate [Iron] 325 mg PO DAILY 03/28/17 [History] Multivitamin [One Daily Multivitamin] 1 each PO DAILY 03/28/17 [History] Simethicone [Gas Relief] 125 mg PO QID PRN 03/28/17 [History] traZODone [TraZODone] 50 mg PO HS 03/28/17 [History] Benzonatate [Tessalon] 200 mg PO TID PRN #30 capsule 03/31/17 [Rx] Cefdinir [Omnicef] 300 mg PO BID #20 capsule 03/31/17 [Rx] Doxycycline 100 mg PO BID #20 capsule 03/31/17 [Rx] amLODIPine [Norvasc] 5 mg PO DAILY #30 tablet 03/31/17 [Rx] Meloxicam [Mobic] 7.5 mg PO BID 04/26/17 [History] 3 Allergy/AdvReac Type Severity Reaction Status Date / Time iodine Allergy Redness of Verified 03/28/17 19:25 Skin morphine Allergy Itching Verified 03/28/17 19:25 aspirin AdvReac Difficulty Verified 03/28/17 19:25 Breathing tape Allergy Rash Uncoded 08/11/16 11:00 All Systems PM: A 10-system review of systems was performed and is negative for pertinent findings except as documented above in the HPI. - Constitutional Vitals: Temp Pulse Resp BP Pulse Ox 97.3 F L 61 16 131/64 93 04/26/17 05:09 04/26/17 05:09 04/26/17 05:09 04/26/17 05:09 04/26/17 05:09 General appearance: Present: A&O X 0, no acute distress Exam: Patient is sleepy, can be waken up by verbal stimulation. Cannot answer questions - Head Head exam: Present: atraumatic, normocephalic - Eye Eye exam: Present: PERRL, conjuntiva pink, sclera anicteric Pupils: Present: PERRL - Neck Neck exam general surgery: Present: supple, trachea midline. Absent: lymphadenopathy - Respiratory Respiratory exam: Present: CTAB. Absent: accessory muscle use, rales, rhonchi, wheezes - Cardiovascular Cardiovascular exam: Present: RRR, +S1, +S2. Absent: diastolic murmur, gallop, rubs, systolic murmur - GI/Abdominal GI/Abdominal exam: Present: normal bowel sounds, soft, no peritoneal signs. Absent: distended, tenderness - Extremities Exam Extremities exam: Present: warm, radial pulses palpable and symmetrical. Absent : calf tenderness, cyanotic, pedal edema - Neurological Exam Neurological exam: Present: CN II-XII intact, oriented X3, no focal deficits. Absent: pronater drift, facial droop, speech deficit - Skin Skin exam: Present: dry, intact Internal Med - H&P Results - Labs CBC & Chem 7: 04/26/17 02:09 04/26/17 01:29 - ABG Interpretation ABG results: 04/26/17 06:24 ABG pH 7.32 ABG pCO2 50 H ABG pO2 98 ABG HCO3 26 ABG Total CO2 27 H ABG O2 Saturation 97 ABG Base Excess -1 - EKG Data -: EKG Interpreted by Myself EKG shows normal: sinus rhythm Rate: normal
--- NOTE | 2017-04-26 10:36 | Event Note ---
Date of Encounter: 04/26/17 Time of Encounter: 10:15 61-year-old female with history of COPD, hypothyroidism, more disorder was admitted with altered mental status and lethargy. Patient is noted to be on multiple psychotropic and sedative medications at home including benzodiazepines , SSRIs, muscle relaxants. Patient seen and examined at bedside. Noted to be at baseline mental status, alert and oriented. Reports that recently her Zanaflex has been increased from 4mg to 6mg; Chest- S1, S2 heard; lungs are clear to auscultation B/L Labs WNL; Acute encephalopathy- likely polypharmacy; currently at baseline. Continue to hold narcotics, muscle relaxants. Restart Celexa, when necessary benzodiazepines. D/w pharmacy and patient filled new prescription for Tylenol#3 yesterday, which may be the reason for her encephalopathy along with Trazodone, Valium, Geodon? No source of infection at this time; ABG shows normal pH. TSH WNL.
[2017-04-26] MEDS: amLODIPine 5 MG TABLET PO SCH (12:07)
--- NOTE | 2017-04-26 13:13 | Electrocardiograph Report ---
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
[2017-04-26] MEDS: Acetaminophen 325 MG TABLET PO PRN (15:23)
[2017-04-26] MEDS: Topiramate 25 MG TABLET PO SCH (19:52)
[2017-04-26] MEDS ORDERED: traZODone 50 MG TABLET PO SCH (21:00)
[2017-04-27] MEDS: Acetaminophen 325 MG TABLET PO PRN ×2 (00:01→06:07)
[2017-04-27] MEDS: *HR* Heparin 5,000 UNIT/ML VIAL SQ SCH (06:07)
[2017-04-27 07:01] LABS: Basophils % 0.8 %; Eosinophils # 0.1 K/mcL (0.0-0.6); Eosinophils % 2.4 %; Hematocrit 33.7 % (35.3-44.9); Hemoglobin 11.2 g/dL (11.5-15.4); Immature Granulocytes % 0.2 % (0-4); Lymphocytes # 1.3 K/mcL (0.6-4.6); Lymphocytes % 26.5 %; Mean Corpuscular HGB Conc 33.2 g/dL (31.6-35.5); Mean Corpuscular Volume 96.3 fL (83.0-100.0); Mean Platelet Volume 10.5 fL (9.4-12.4); Monocytes # 0.4 K/mcL (0.0-1.3); Monocytes % 7.5 %; Neutrophils # 3.1 K/mcL (1.6-8.9); Platelet Count 184 K/mcL (140-400); Red Cell Distribution Width 13.5 % (11.5-14.5); Segmented Neutrophils % 62.6 %
[2017-04-27 07:16] LABS: Blood Urea Nitrogen 12 mg/dL (7-20); Carbon Dioxide 24 mEq/L (19-29); Chloride 106 mEq/L (98-109); Potassium 4.4 mEq/L (3.5-4.5); Sodium 137 mEq/L (136-145)
[2017-04-27 07:17] LABS: BUN/Creatinine Ratio 16 (6-26); Glucose 103 mg/dL (70-99); Osmolality,Calculated 284 (280-300); eGFR For African Americans > 60 (> 60); eGFR For Non-African Americans > 60 (> 60)
[2017-04-27] MEDS: Topiramate 25 MG TABLET PO SCH (08:08)
[2017-04-27] MEDS: amLODIPine 5 MG TABLET PO SCH (08:09)
[2017-04-27] MEDS ORDERED: Multivit/Ca/Min/Fe/FA 1 TAB TABLET PO SCH (09:00)
--- NOTE | 2017-04-27 10:04 | Discharge Summary ---
Date of Encounter: 04/27/17 Time of Encounter: 09:00 - Discharge Diagnosis (1) Acute encephalopathy Priority: Primary Status: Acute (2) Mood disorder Priority: Secondary Status: Chronic (3) Hypothyroidism Priority: Secondary Status: Chronic Qualifiers: Hypothyroidism type: unspecified Qualified Code(s): E03.9 - Hypothyroidism , unspecified (4) Hypertension Priority: Secondary Status: Chronic Qualifiers: Hypertension type: essential hypertension Qualified Code(s): I10 - Essential (primary) hypertension (5) Hyperlipidemia Priority: Secondary Status: Chronic Qualifiers: Hyperlipidemia type: unspecified Qualified Code(s): E78.5 - Hyperlipidemia , unspecified (6) COPD (chronic obstructive pulmonary disease) Priority: Secondary Status: Chronic Qualifiers: COPD type: unspecified COPD Qualified Code(s): J44.9 - Chronic obstructive pulmonary disease, unspecified (7) Polypharmacy Priority: Primary Status: Chronic - Discharge Medications Home Medications: Citalopram Hydrobromide [Celexa] 40 mg PO HS 01/19/16 [History] Levothyroxine [Synthroid] 112 mcg PO DAILY 01/19/16 [History] Omeprazole [PriLOSEC] 40 mg PO DAILY 01/19/16 [History] Oxygen 2.5 l NS HS 01/19/16 [History] Pregabalin [Lyrica] 75 mg PO BID 01/19/16 [History] Simvastatin [Zocor] 40 mg PO HS 01/19/16 [History] Trihexyphenidyl HCl 5 mg PO BID 01/19/16 [History] Albuterol Neb [Proventil Neb] 2.5 mg IH [id number] PRN #0 inhsol 01/22/16 [Rx] Topiramate [Topamax] 50 mg PO BID 08/11/16 [History] Cetirizine HCl [Zyrtec] 10 mg PO DAILY 03/28/17 [History] Ferrous Sulfate [Iron] 325 mg PO DAILY 03/28/17 [History] Multivitamin [One Daily Multivitamin] 1 each PO DAILY 03/28/17 [History] Simethicone [Gas Relief] 125 mg PO QID PRN 03/28/17 [History] traZODone [TraZODone] 50 mg PO HS 03/28/17 [History] amLODIPine [Norvasc] 5 mg PO DAILY #30 tablet 10/20/17 [Rx] Ziprasidone HCl [Geodon] 80 mg PO BID 04/26/17 [History] clonazePAM [Klonopin] 0.5 mg PO TID 04/26/17 [History] Allergies/Adverse Reactions: 3 Allergy/AdvReac Type Severity Reaction Status Date / Time aspirin Allergy Difficulty Verified 04/26/17 09:26 Breathing iodine AdvReac Redness of Verified 04/26/17 09:26 Skin morphine AdvReac Itching Verified 04/26/17 09:26 tape AdvReac Rash Uncoded 04/26/17 09:26 Date of admission: 04/26/17 03:48 Primary care physician: Inga Birch CNP Discharging clinician: Emilia Beckett Anticipated date of discharge: 04/27/17 - Patient Status Disposition: Home, Self-Care Condition: Good Functional capacity at discharge: independent ambulation Overall status at discharge: patient is progressing back to baseline - Discharge Instructions Follow Up With: Inga Birch CNP [Primary Care Provider] - 05/01/17 9:00 am Additional Instructions: F/up with Psychiatry as scheduled - Diet and Activity Activity: resume usual activities as tolerated, wear oxygen at all times Diet: low fat, low cholesterol, low salt diet Hospital course: Ms. Dee is a 61 year old female with the above medical problems who was admitted with acute confusion and altered mental status. Patient was noted to be on multiple sedatives at home including benzodiazepines, psychotropic medications, muscle relaxants and analgesics. Patient also reportedly took a sleeping pill prior to being found lethargic and unresponsive by her . Initial labs, chest x-ray and EKG done in the emergency room showed no acute abnormality. Urinalysis showed no evidence of infection. CT head showed no acute infarct/bleed. Sensitive home medications were held and patient was noted to have improved mentation by the next day. She was gradually back to her baseline mental status , alert and oriented. She tolerated oral diet and had no other complaints. Antidepressants were gradually reintroduced, benzodiazepine and muscle relaxant dosage is being decreased and she is cautioned against use of narcotic pain medications and she verbalized understanding. She is otherwise medically stable for discharge. Patient was recommended to obtain home health services for visiting nurse for medication education, however she declined these services. - Time Spent with Patient Total time spent providing and/or coordinating discharge services: Greater than 30 minutes (45 min) - Constitutional Vitals: Temp Pulse Resp BP Pulse Ox 98.5 F 66 16 149/78 98 04/27/17 06:41 04/27/17 06:41 04/27/17 06:41 04/27/17 06:41 04/27/17 07:41 General appearance: Present: A&O X 3, answers questions appropriately - Respiratory Respiratory exam: Present: CTAB. Absent: accessory muscle use, rales, rhonchi, wheezes
[2017-04-27 10:44] VITALS: BP 132/72
== END 2017-04-27 13:00 | disposition home or self-care (01) ==
LOC: EMEROO 00:18 → 2ANU 00:18 → SUATTDRO 03:48 → 2ANU 04:25
PROVIDERS: ADMIT Internal Medicine; ATTEND Internal Medicine

== ENCOUNTER 2017-07-13 23:25 | Observation (INO) ==
[2017-07-13] MEDS ORDERED: Naloxone 0.4 MG/ML INJ IVP ONE (23:55)
--- NOTE | 2017-07-14 00:07 | Emergency Department Note ---
Disposition Clinical Impression: Accidental drug overdose Qualifiers: Encounter type: subsequent encounter Qualified Code(s): T50.901D - Poisoning by unspecified drugs, medicaments and biological substances, accidental ( unintentional), subsequent encounter Altered mental status Qualifiers: Altered mental status type: unspecified Qualified Code(s): R41.82 - Altered mental status, unspecified Disposition: Admitted As Inpatient Condition: Good General Adult HPI - General Chief complaint: ED Overdose Stated complaint: Polypharm Overdose Time Seen by Provider: 07/13/17 23:39 Source: EMS Mode of arrival: EMS Limitations: altered mental status Nursing Notes Reviewed: Yes Vital Signs Reviewed: Yes - History of Present Illness HPI Narrative: 61-year-old female history of chronic pain, shoulder injury who presents to the ER via EMS due to altered mental status. History is obtained from . He reports she was well this evening took her night medications. She was in the kitchen and fell. He is unsure why she fell. She was alert at that time and he upped her to bed. Soon after she was not responding to him. EMS was called and she was brought in for evaluation. He states this has happened multiple times before. She is on numerous medications that cause sedating effects. He states she has been having trouble with her shoulder. Denies prior history of injuring herself by taking extra medications. No other complaints. 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 Pain Scale: 0 Consistency: constant Improves with: nothing Worsens with: nothing Associated symptoms: Reports: denies other symptoms Treatments Prior to Arrival: none - Related Data Home Medications Medication Instructions Recorded Confirmed Citalopram Hydrobromide [Celexa] 40 mg PO HS 01/19/16 04/26/17 Levothyroxine [Synthroid] 112 mcg PO DAILY 01/19/16 04/26/17 Omeprazole [PriLOSEC] 40 mg PO DAILY 01/19/16 04/26/17 Oxygen 2.5 l NS HS 01/19/16 04/26/17 Pregabalin [Lyrica] 75 mg PO BID 01/19/16 04/26/17 Simvastatin [Zocor] 40 mg PO HS 01/19/16 04/26/17 Trihexyphenidyl HCl 5 mg PO BID 01/19/16 04/26/17 Topiramate [Topamax] 50 mg PO BID 08/11/16 04/26/17 Cetirizine HCl [Zyrtec] 10 mg PO DAILY 03/28/17 04/26/17 Ferrous Sulfate [Iron] 325 mg PO DAILY 03/28/17 04/26/17 Multivitamin [One Daily 1 each PO DAILY 03/28/17 04/26/17 Multivitamin] Simethicone [Gas Relief] 125 mg PO QID PRN 03/28/17 04/26/17 traZODone [TraZODone] 50 mg PO HS 03/28/17 04/26/17 Ziprasidone HCl [Geodon] 80 mg PO BID 04/26/17 04/26/17 clonazePAM [Klonopin] 0.5 mg PO TID 04/26/17 04/26/17 Previous Rx's Medication Instructions Recorded Albuterol Neb [Proventil Neb] 2.5 mg IH [id number] PRN #0 inhsol 01/22/16 amLODIPine [Norvasc] 5 mg PO DAILY #30 tablet 03/31/17 Allergies Allergy/AdvReac Type Severity Reaction Status Date / Time aspirin Allergy Difficulty Verified 04/26/17 09:26 Breathing iodine AdvReac Redness of Verified 04/26/17 09:26 Skin morphine AdvReac Itching Verified 04/26/17 09:26 tape AdvReac Rash Uncoded 04/26/17 09:26 Limitations: ROS unobtainable due to patients medical condition Past Medical History - Past Medical History Attestation: Yes The following information was validated with the patient. 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 - Social History Smoking Status: Current every day smoker Smokeless Tobacco Status: No Alcohol use: Reports: none Drug use: Reports: none Physical Exam - General Limitations: altered mental status General appearance: lethargic - Head Head exam: atraumatic, normocephalic - Eye Eye exam: Present: normal appearance, PERRL, EOMI - ENT ENT exam: normal exam - Neck Neck exam: Present: normal inspection - Chest Chest inspection: Present: normal inspection, symmetric chest wall rise - Respiratory Respiratory exam: Present: normal lung sounds bilaterally - Cardiovascular Cardiovascular exam: Present: regular rate, normal rhythm, normal heart sounds - Abdominal Exam Abdominal exam: Present: soft, Non-Tender. Absent: distention, rigidity - Extremities Exam Extremities exam: Present: normal inspection - Expanded Upper Extremity Exam Shoulder exam: Present: normal inspection Arm exam: Present: normal inspection Elbow exam: Present: normal inspection Forearm/Wrist exam: Present: normal inspection Hand exam: Present: normal inspection Vascular exam: Normal: radial pulse - Expanded Lower Extremity Exam Hip/Pelvis exam: Present: normal inspection Upper leg exam: Present: normal inspection Knee exam: Present: normal inspection Lower leg exam: Present: normal inspection Ankle exam: Present: normal inspection Foot/toe exam: Present: normal inspection - Expanded Neurological Exam Coma Scale Eye Opening: To Pain Coma Scale Motor Response: Withdraws to Pain Coma Scale Verbal Response: Incomprehensible Coma Scale Total: 8 - Skin Skin exam: Present: warm Course Course Narrative: Patient seen and examined the time of arrival. GCS of 8 upon arrival. She does arouse to painful stimuli. We will give her dose of Narcan here, CT scan of the head, EKG, chest x-ray as well as labs including troponin, UDS and UA. I reviewed her medication list in her room showing that she is on numerous sedating medications including trazodone, baclofen, [place], Geodon, Paxil, clonazepam. - Reevaluation(s) Reevaluation #1: Patient was becoming less arousable. She was given 1 mg of Narcan with an adequate response. Reevaluation #2: Patient again became drowsy and was given an additional 1 mg of Narcan. Vital Signs Temperature 98.9 F 07/13/17 23:29 Pulse Rate 53 07/13/17 23:29 Respiratory Rate 12 07/13/17 23:29 Blood Pressure 131/68 07/13/17 23:29 O2 Sat by Pulse Oximetry 95 07/13/17 23:29 Temperature 97.6 F 07/14/17 03:44 Pulse Rate 54 07/14/17 03:44 Respiratory Rate 16 07/14/17 03:44 Blood Pressure 161/75 07/14/17 03:44 O2 Sat by Pulse Oximetry 96 07/14/17 03:44 Oxygen Delivery Oxygen Delivery Room Air Medical Decision Making - [facility] Narrative Medical decision making narrative: 61-year-old female presents to the ER due to altered mental status. She is on numerous medications with sedating side effect profile. She did respond to Narcan here which she received 3 times during her ED stay. CT of the head is unremarkable. Labs urinalysis reviewed with UDS positive for benzos and opiates for which she has prescriptions for both. She is admitted to the hospitalist service for polypharmacy, accidental drug overdose. - Lab Data Lab results reviewed: Yes I reviewed the patient's lab results. Result diagrams: 07/14/17 01:15 07/14/17 01:15 Lab Results 07/14/17 07/14/17 07/14/17 Range/Units 00:44 00:44 01:15 WBC 5.5 (4.3-11.1) K/mcL RBC 3.70 L (3.82-4.97) M/mcL Hgb 11.7 (11.5-15.4) g/dL Hct 35.8 (35.3-44.9) % MCV 96.8 (83.0-100.0) fL MCH 31.6 (28.0-33.3) pg MCHC 32.7 (31.6-35.5) g/dL RDW 12.7 (11.5-14.5) % Plt Count 192 (140-400) K/mcL MPV 10.5 (9.4-12.4) fL Immature Gran % 0.4 (0-4) % Seg Neutrophils % 60.3 % Lymphocytes % 30.3 % Monocytes % 6.3 % Eosinophils % 2.2 % Basophils % 0.5 % Neutrophils # 3.3 (1.6-8.9) K/mcL Lymphocytes # 1.7 (0.6-4.6) K/mcL Monocytes # 0.4 (0.0-1.3) K/mcL Eosinophils # 0.1 (0.0-0.6) K/mcL Basophils # 0.0 (0.0-0.2) K/mcL PT (9.4-12.1) Seconds INR APTT (26.0-36.0) Seconds Sodium (136-145) mEq/L Potassium (3.5-5.1) mEq/L Chloride (98-107) mEq/L Carbon Dioxide (23-29) mEq/L BUN (8-23) mg/dL Creatinine (0.60-1.20) mg/dL Est GFR ( Amer) (> 60) Est GFR (Non-Af Amer) (> 60) BUN/Creatinine Ratio (6-26) Glucose (70-105) mg/dL Calculated Osmolality (280-300) Calcium (8.6-10.3) mg/dL Total Bilirubin (0.3-1.0) mg/dL Direct Bilirubin (0.0-0.2) mg/dL Indirect Bilirubin (0.0-1.2) mg/dL AST (13-39) Units/L ALT (7-52) Units/L Alkaline Phosphatase (34-104) Units/L Ammonia (16-53) mcmol/L Troponin I (< 0.04) ng/mL Serum Total Protein (6.4-8.9) g/dL Albumin (3.5-5.7) g/dL Globulin (2.4-3.5) g/dL Albumin/Globulin Ratio (1.1-2.2) TSH (0.340-5.600) mcIU/mL Urine Color Yellow (Yellow) Urine Clarity Clear (Clear) Urine pH 7.0 (5.0-8.0) pH Units Ur Specific [place] < 1.005 L (1.010-1.025) Urine Protein Negative (Neg-Trace) mg/dL Urine Glucose (UA) Normal (Normal) mg/dL Urine Ketones Negative (Negative) mg/dL Urine Blood Negative (Negative) Urine Nitrite Negative (Negative) Urine Bilirubin Negative (Negative) Urine Urobilinogen Normal (Normal) mg/dL Ur Leukocyte Esterase Negative (Negative) Ur Culture Indicated? NO (NO) Urine Opiates Screen Positive H (Hzyimk=100) ng/mL Ur Barbiturates Screen Negative (Bzvlqt=533) ng/mL Ur Phencyclidine Scrn Negative (Cutoff=25) ng/mL Ur Amphetamines Screen Negative (Gsdolx=4231) ng/mL U Benzodiazepines Scrn Positive H (Yjzllj=170) ng/mL Urine Cocaine Screen Negative (Cutoff= 300) ng/mL U Marijuana (THC) Screen Negative (Cutoff = 50) ng/mL Ethyl Alcohol (0-10) mg/dL 07/14/17 07/14/17 07/14/17 Range/Units 01:15 01:15 01:15 WBC (4.3-11.1) K/mcL RBC (3.82-4.97) M/mcL Hgb (11.5-15.4) g/dL Hct (35.3-44.9) % MCV (83.0-100.0) fL MCH (28.0-33.3) pg MCHC (31.6-35.5) g/dL RDW (11.5-14.5) % Plt Count (140-400) K/mcL MPV (9.4-12.4) fL Immature Gran % (0-4) % Seg Neutrophils % % Lymphocytes % % Monocytes % % Eosinophils % % Basophils % % Neutrophils # (1.6-8.9) K/mcL Lymphocytes # (0.6-4.6) K/mcL Monocytes # (0.0-1.3) K/mcL Eosinophils # (0.0-0.6) K/mcL Basophils # (0.0-0.2) K/mcL PT 10.9 (9.4-12.1) Seconds INR 1.0 APTT 34.3 (26.0-36.0) Seconds Sodium 141 (136-145) mEq/L Potassium 3.6 (3.5-5.1) mEq/L Chloride 109 H (98-107) mEq/L Carbon Dioxide 27 (23-29) mEq/L BUN 11 (8-23) mg/dL Creatinine 0.70 (0.60-1.20) mg/dL Est GFR ( Amer) > 60 (> 60) Est GFR (Non-Af Amer) > 60 (> 60) BUN/Creatinine Ratio 16 (6-26) Glucose 98 (70-105) mg/dL Calculated Osmolality 291 (280-300) Calcium 9.4 (8.6-10.3) mg/dL Total Bilirubin 0.3 (0.3-1.0) mg/dL Direct Bilirubin 0.0 (0.0-0.2) mg/dL Indirect Bilirubin 0.3 (0.0-1.2) mg/dL AST 12 L (13-39) Units/L ALT 9 (7-52) Units/L Alkaline Phosphatase 65 (34-104) Units/L Ammonia 45 (16-53) mcmol/L Troponin I (< 0.04) ng/mL Serum Total Protein 6.2 L (6.4-8.9) g/dL Albumin 4.1 (3.5-5.7) g/dL Globulin 2.1 L (2.4-3.5) g/dL Albumin/Globulin Ratio 2.0 (1.1-2.2) TSH 1.348 (0.340-5.600) mcIU/mL Urine Color (Yellow) Urine Clarity (Clear) Urine pH (5.0-8.0) pH Units Ur Specific [place] (1.010-1.025) Urine Protein (Neg-Trace) mg/dL Urine Glucose (UA) (Normal) mg/dL Urine Ketones (Negative) mg/dL Urine Blood (Negative) Urine Nitrite (Negative) Urine Bilirubin (Negative) Urine Urobilinogen (Normal) mg/dL Ur Leukocyte Esterase (Negative) Ur Culture Indicated? (NO) Urine Opiates Screen (Zrjeos=325) ng/mL Ur Barbiturates Screen (Pylvsq=758) ng/mL Ur Phencyclidine Scrn (Cutoff=25) ng/mL Ur Amphetamines Screen (Kfbnhj=2096) ng/mL U Benzodiazepines Scrn (Jwnzdi=602) ng/mL Urine Cocaine Screen (Cutoff= 300) ng/mL U Marijuana (THC) Screen (Cutoff = 50) ng/mL Ethyl Alcohol < 10 (0-10) mg/dL 07/14/17 Range/Units 01:15 WBC (4.3-11.1) K/mcL RBC (3.82-4.97) M/mcL Hgb (11.5-15.4) g/dL Hct (35.3-44.9) % MCV (83.0-100.0) fL MCH (28.0-33.3) pg MCHC (31.6-35.5) g/dL RDW (11.5-14.5) % Plt Count (140-400) K/mcL MPV (9.4-12.4) fL Immature Gran % (0-4) % Seg Neutrophils % % Lymphocytes % % Monocytes % % Eosinophils % % Basophils % % Neutrophils # (1.6-8.9) K/mcL Lymphocytes # (0.6-4.6) K/mcL Monocytes # (0.0-1.3) K/mcL Eosinophils # (0.0-0.6) K/mcL Basophils # (0.0-0.2) K/mcL PT (9.4-12.1) Seconds INR APTT (26.0-36.0) Seconds Sodium (136-145) mEq/L Potassium (3.5-5.1) mEq/L Chloride (98-107) mEq/L Carbon Dioxide (23-29) mEq/L BUN (8-23) mg/dL Creatinine (0.60-1.20) mg/dL Est GFR ( Amer) (> 60) Est GFR (Non-Af Amer) (> 60) BUN/Creatinine Ratio (6-26) Glucose (70-105) mg/dL Calculated Osmolality (280-300) Calcium (8.6-10.3) mg/dL Total Bilirubin (0.3-1.0) mg/dL Direct Bilirubin (0.0-0.2) mg/dL Indirect Bilirubin (0.0-1.2) mg/dL AST (13-39) Units/L ALT (7-52) Units/L Alkaline Phosphatase (34-104) Units/L Ammonia (16-53) mcmol/L Troponin I < 0.03 (< 0.04) ng/mL Serum Total Protein (6.4-8.9) g/dL Albumin (3.5-5.7) g/dL Globulin (2.4-3.5) g/dL Albumin/Globulin Ratio (1.1-2.2) TSH (0.340-5.600) mcIU/mL Urine Color (Yellow) Urine Clarity (Clear) Urine pH (5.0-8.0) pH Units Ur Specific [place] (1.010-1.025) Urine Protein (Neg-Trace) mg/dL Urine Glucose (UA) (Normal) mg/dL Urine Ketones (Negative) mg/dL Urine Blood (Negative) Urine Nitrite (Negative) Urine Bilirubin (Negative) Urine Urobilinogen (Normal) mg/dL Ur Leukocyte Esterase (Negative) Ur Culture Indicated? (NO) Urine Opiates Screen (Znswtb=753) ng/mL Ur Barbiturates Screen (Qwqeks=745) ng/mL Ur Phencyclidine Scrn (Cutoff=25) ng/mL Ur Amphetamines Screen (Sgqlix=7288) ng/mL U Benzodiazepines Scrn (Hxwbcj=355) ng/mL Urine Cocaine Screen (Cutoff= 300) ng/mL U Marijuana (THC) Screen (Cutoff = 50) ng/mL Ethyl Alcohol (0-10) mg/dL - Radiology Data Radiology results reviewed: Yes I reviewed the patient's radiology results. Chest X-Ray 07/14/17 00:00 IMPRESSION: No acute abnormality D/ / Merlin Tang / Merlin Tang Interpreting Provider: Merlin Tang Head CT 07/14/17 00:01 IMPRESSION: No acute intracranial abnormality. D/ / Benson Lou MD / Benson Lou MD Interpreting Provider: Benson Lou MD - EKG Data EKG #1 EKG attestation: Yes I reviewed and interpreted this EKG. EKG results narrative: EKG demonstrates sinus bradycardia with a rate of 54 bpm. Normal axis. Normal intervals. Normal R-wave progression. T-wave inversions in lead 3. No gross ST elevations or depressions. No acute ischemic findings. No significant changes from previous EKG dated 04/26/17. Critical Care Time Critical Care Time: Yes Total Critical Care Time: 35 Attestation: Critical care performed: Time is exclusive of separately billable procedures. Time includes: direct patient care, patient reassessment, coordination of patient care, interpretation of data (laboratory data, radiology data, and respiratory data), review of patient's medical records, medical consultation and documentation of patient care. Procedures included in critical care time: Procedures excluded from critical care time: S.B.A.R. - S.B.A.R. Situation: Demographics, MOA Background: Presenting Complaint, Relevant PMH, Meds, & Allergies Assessment: Course and respsone to treatment, Exam Concerns, Patient/Family Expectation, Pertinant Lab Results Recommendation: Barrier(s) to disposition, Recommendation based on pending studies, treatments, or consults S.B.A.R. Report Given to: Dr. Sandoval Attestation Statement - Attestation Attestation: IVipin MD, personally evaluated this patient and discussed their management with the resident physician. I reviewed the resident's note and agree with the documented findings, medical decision making, and plan of care. 61-year-old female presents to the emergency department by embolus for altered mental status. reports that she is on a lot of different medications and sometimes she takes too much. He states that she took her medications this evening and was okay at that time. She then went to bed and was talking and seemed okay however short time later he was unable to arouse her. He reports that she has had multiple similar episodes in the past and has required Narcan. On examination patient is a well-developed well-nourished female in no acute distress. She responds to painful stimuli. There is no cyanosis or diaphoresis. She is breathing spontaneously and protecting her airway. Neck is supple and nontender. Mucous members are moist. Breath sounds are equal bilaterally. Heart regular. Abdomen soft and nontender. Bowel sounds present. Labs reviewed. Head CT negative. Chest x-ray negative. EKG shows a sinus bradycardia with prolonged QT. No acute ischemic changes. Patient received IV Narcan with improvement in her mental status. The hospitalist, Dr. Sandoval, was consulted and accepted admission of the patient.
[2017-07-14 00:57] LABS: Bilirubin,Urine Negative (Negative); Blood,Urine Negative (Negative); Clarity,Urine Clear (Clear); Color,Urine Yellow (Yellow); Glucose,Urine (UA) Normal (Normal); Ketones,Urine Negative (Negative); Leukocyte Esterase,Urine Negative (Negative); Nitrite,Urine Negative (Negative); Protein,Urine Negative (Neg-Trace); Specific Gravity,Urine < 1.005 (1.010-1.025); Urobilinogen,Urine Normal (Normal)
[2017-07-14 01:02] LABS: Amphetamine Screen,Urine Negative ng/mL (Cutoff=1000); Barbiturate Screen,Urine Negative ng/mL (Cutoff=200); Benzodiazepines Screen,Urine Positive ng/mL (Cutoff=200); Cannabinoid Screen,Urine Negative ng/mL (Cutoff = 50); Cocaine Screen,Urine Negative ng/mL (Cutoff= 300); Opiate Screen,Urine Positive ng/mL (Cutoff=300); Phencyclidine Screen,Urine Negative ng/mL (Cutoff=25)
[2017-07-14 01:24] LABS: Basophils % 0.5 %; Eosinophils # 0.1 K/mcL (0.0-0.6); Eosinophils % 2.2 %; Hematocrit 35.8 % (35.3-44.9); Hemoglobin 11.7 g/dL (11.5-15.4); Immature Granulocytes % 0.4 % (0-4); Lymphocytes # 1.7 K/mcL (0.6-4.6); Lymphocytes % 30.3 %; Mean Corpuscular HGB Conc 32.7 g/dL (31.6-35.5); Mean Corpuscular Hemoglobin 31.6 pg (28.0-33.3); Mean Corpuscular Volume 96.8 fL (83.0-100.0); Mean Platelet Volume 10.5 fL (9.4-12.4); Monocytes # 0.4 K/mcL (0.0-1.3); Monocytes % 6.3 %; Neutrophils # 3.3 K/mcL (1.6-8.9); Platelet Count 192 K/mcL (140-400); Red Cell Distribution Width 12.7 % (11.5-14.5); Segmented Neutrophils % 60.3 %
[2017-07-14 01:29] LABS: Prothrombin Time 10.9 Seconds (9.4-12.1)
[2017-07-14 01:32] LABS: Activated Partial Thrombo Time 34.3 Seconds (26.0-36.0)
[2017-07-14 01:40] LABS: Ethanol < 10 mg/dL (0-10)
[2017-07-14 01:42] LABS: Alanine Aminotransferase 9 Units/L (7-52); Albumin 4.1 g/dL (3.5-5.7); Alkaline Phosphatase 65 Units/L (34-104); Aspartate Amino Transferase 12 Units/L (13-39); BUN/Creatinine Ratio 16 (6-26); Bilirubin,Indirect 0.3 mg/dL (0.0-1.2); Bilirubin,Total 0.3 mg/dL (0.3-1.0); Blood Urea Nitrogen 11 mg/dL (8-23); Calcium 9.4 mg/dL (8.6-10.3); Carbon Dioxide 27 mEq/L (23-29); Chloride 109 mEq/L (98-107); Globulin 2.1 g/dL (2.4-3.5); Glucose 98 mg/dL (70-105); Osmolality,Calculated 291 (280-300); Potassium 3.6 mEq/L (3.5-5.1); Sodium 141 mEq/L (136-145); Total Protein 6.2 g/dL (6.4-8.9); eGFR For African Americans > 60 (> 60); eGFR For Non-African Americans > 60 (> 60)
[2017-07-14 01:55] LABS: Thyroid Stimulating Hormone 1.348 mcIU/mL (0.340-5.600)
[2017-07-14] MEDS ORDERED: Naloxone 0.4 MG/ML INJ IVP ONE (04:04)
[2017-07-14] MEDS ORDERED: Naloxone 0.4 MG/ML INJ IVP PRN (04:10)
[2017-07-14] MEDS ORDERED: Naloxone 0.4 MG/ML INJ ONE (04:12)
--- NOTE | 2017-07-14 04:22 | Internal Med History&Physical ---
Date of Encounter: 07/14/17 Time of Encounter: 03:00 Assessment and Plan (1) Hypothyroidism Current visit: No Status: Chronic TSH is within normal limits. Will resume home medication after resume diet. Qualifiers: Hypothyroidism type: unspecified Qualified Code(s): E03.9 - Hypothyroidism , unspecified (2) DVT prophylaxis Current visit: No Status: Acute Heparin subcutaneously (3) Hypertension Current visit: No Status: Chronic Hold the home medication because of nothing by mouth. Hydralazine IV when necessary if BP is high Qualifiers: Hypertension type: essential hypertension Qualified Code(s): I10 - Essential (primary) hypertension (4) COPD (chronic obstructive pulmonary disease) Current visit: No Status: Chronic Stable. No signs of exacerbation. DuoNeb when necessary Qualifiers: COPD type: unspecified COPD Qualified Code(s): J44.9 - Chronic obstructive pulmonary disease, unspecified (5) Polypharmacy Current visit: No Status: Chronic Patient may need to adjust home medication upon discharge. Patient should have compliance education. We will consult pharmacy. (6) Acute encephalopathy Current visit: No Status: Acute Most likely due to polypharmacy overdose. Patient is responded to Narcan. - Keep nothing by mouth, IV fluid. - Neuro check every 15 minutes 4 than hourly 2, then every 4 hours - Give another dose of Narcan - Continuous cardiac monitoring and pulse oximetry monitoring (7) Accidental drug overdose Current visit: Yes Status: Acute Management as above Qualifiers: Encounter type: subsequent encounter Qualified Code(s): T50.901D - Poisoning by unspecified drugs, medicaments and biological substances, accidental (unintentional), subsequent encounter Internal Medicine - H&P: HPI Chief complaint: Altered mental status Admitted From: Home Plans for Post Hospital Care: Home History of present illness: Ms. Dee is a 61 year old female with history of hypothyroidism, COPD, chronic shoulder pain on multiple pain medications, presented to ER for altered mental status. Patient had her evening medication. Shortly after her taking medication, she fell and gradually confused. Patient's hold her during the fall and assist her to lay on bed. So after that, she was found nonresponsive. EMS was called, patient was sent to ER. Patient has similar problem before, which was treated with Narcan and the patient improved after treatment. In ER, she was given Narcan 2 (0.4mg and 2mg), hurts mental status has improved but is still very sleepy, opening eyes on stimulation and can tell that she is in "[facility]". Urine toxicity shows positive for opioid and benzo. Patient was admitted for polypharmacy overdose and altered mental status. Past Med Surg Social Fam HX - Past Medical History Medical history: asthma, thyroid disease Psychiatric history: anxiety, depression - Past Surgical History Surgical History: appendectomy, , orthopedic, other, other - Social History Smoking Status: Current every day smoker Packs per day: 0.5 Smokeless Tobacco Status: No Alcohol use: none Drug use: none - Family History Father Family Member Ethnicity: Non- Living Status: Hx Family Cardiac Disorders: Yes (HLD) Hx Family Respiratory Disorders: No Hx Family Cancer: Yes Hx Family GI Disorders: No Hx Family Endocrine Disorder: No Hx Family Neuromuscular Disorders: No Hx Family Neurologic Disorders: No Hx Family HEENT Disorders: No Hx Family Autoimmune Disorders: No Internal Medicine - H&P: Meds Citalopram Hydrobromide [Celexa] 40 mg PO HS 01/19/16 [History] Levothyroxine [Synthroid] 112 mcg PO DAILY 01/19/16 [History] Omeprazole [PriLOSEC] 40 mg PO DAILY 01/19/16 [History] Oxygen 2.5 l NS HS 01/19/16 [History] Pregabalin [Lyrica] 75 mg PO BID 01/19/16 [History] Simvastatin [Zocor] 40 mg PO HS 01/19/16 [History] Trihexyphenidyl HCl 5 mg PO BID 01/19/16 [History] Albuterol Neb [Proventil Neb] 2.5 mg IH [id number] PRN #0 inhsol 01/22/16 [Rx] Topiramate [Topamax] 50 mg PO BID 08/11/16 [History] Cetirizine HCl [Zyrtec] 10 mg PO DAILY 03/28/17 [History] Ferrous Sulfate [Iron] 325 mg PO DAILY 03/28/17 [History] Multivitamin [One Daily Multivitamin] 1 each PO DAILY 03/28/17 [History] Simethicone [Gas Relief] 125 mg PO QID PRN 03/28/17 [History] traZODone [TraZODone] 50 mg PO HS 03/28/17 [History] amLODIPine [Norvasc] 5 mg PO DAILY #30 tablet 03/31/17 [Rx] Ziprasidone HCl [Geodon] 80 mg PO BID 04/26/17 [History] clonazePAM [Klonopin] 0.5 mg PO TID 04/26/17 [History] 3 Allergy/AdvReac Type Severity Reaction Status Date / Time aspirin Allergy Difficulty Verified 04/26/17 09:26 Breathing iodine AdvReac Redness of Verified 04/26/17 09:26 Skin morphine AdvReac Itching Verified 04/26/17 09:26 tape AdvReac Rash Uncoded 04/26/17 09:26 All Systems PM: A 10-system review of systems was performed and is negative for pertinent findings except as documented above in the HPI. - Constitutional Vitals: Temp Pulse Resp BP Pulse Ox 97.6 F 54 16 161/75 96 07/14/17 03:44 07/14/17 03:44 07/14/17 03:44 07/14/17 03:44 07/14/17 03:44 General appearance: Present: A&O X 1, no acute distress, answers questions appropriately Exam: Drowsy, can be wake up by shaking her with a hand. - Head Head exam: Present: atraumatic, normocephalic - Eye Eye exam: Present: PERRL, conjuntiva pink, sclera anicteric Pupils: Present: PERRL - Neck Neck exam general surgery: Present: supple, trachea midline. Absent: lymphadenopathy - Respiratory Respiratory exam: Present: CTAB. Absent: accessory muscle use, rales, rhonchi, wheezes - Cardiovascular Cardiovascular exam: Present: RRR, +S1, +S2. Absent: diastolic murmur, gallop, rubs, systolic murmur - GI/Abdominal GI/Abdominal exam: Present: normal bowel sounds, soft, no peritoneal signs. Absent: distended, tenderness - Extremities Exam Extremities exam: Present: warm, radial pulses palpable and symmetrical. Absent : calf tenderness, cyanotic, pedal edema - Neurological Exam Neurological exam: Present: CN II-XII intact, no focal deficits. Absent: pronater drift, facial droop, speech deficit - Skin Skin exam: Present: dry, intact Internal Med - H&P Results - Labs CBC & Chem 7: 07/14/17 01:15 07/14/17 01:15 - EKG Data -: EKG Interpreted by Myself (QTc 476ms) EKG shows normal: sinus rhythm Rate: bradycardia
[2017-07-14] MEDS ORDERED: Ipratropium/Albuterol Neb 3 ML IH PRN (04:26)
[2017-07-14] MEDS: *HR* Heparin 5,000 UNIT/ML VIAL SQ SCH ×2 (05:21→16:39)
[2017-07-14] MEDS: 0.9 % Sodium Chloride 1,000 ML IVC SCH ×2 (05:21→20:01)
--- NOTE | 2017-07-14 17:59 | Internal Med Progress Note ---
Date of Encounter: 07/14/17 Time of Encounter: 13:55 - Assessment and plan (1) Accidental drug overdose Current Visit: Yes Status: Acute Assessment and plan: 1 patient has long history of polypharmacy use multiple sedating drugs. She did have a previous accidental drug overdose in April. She states that she had been taking Tylenol 3's on top of several sedating medications. She became groggy and fell and had to be assisted to a bed and was difficult to arouse. She had several rounds of Narcan to arouse her. We will hold sedating medications for now and pharmacy has been consulted and medications have been reviewed. We will hold Valium and Cymbalta trazodone and Lyrica for now continue with citalopram Geodon and Topamax when more awake He does have a history of arthritic shoulder as well as lower back pain. We will give Tylenol for now as well as Lidoderm patches as she was taking Mobic which we will also continue Qualifiers: Encounter type: subsequent encounter Qualified Code(s): T50.901D - Poisoning by unspecified drugs, medicaments and biological substances, accidental (unintentional), subsequent encounter (2) Acute encephalopathy Current Visit: No Status: Acute Assessment and plan: Most likely related to drug overdose she slowly improving more awake. We will hold sedating medications for now pharmacy has reviewed medications. Fall precautions Aspiration precautions (3) Hypothyroidism Current Visit: No Status: Chronic Assessment and plan: Continue with Synthroid Qualifiers: Hypothyroidism type: unspecified Qualified Code(s): E03.9 - Hypothyroidism , unspecified (4) Polypharmacy Current Visit: No Status: Chronic Assessment and plan: Patient has a long history of polypharmacy abuse. She is on several sedating medications as well as pain medications. She did have a previous accidental overdose in April. She has been experiencing right shoulder pain as well as back pain. She does admit to using medications that do not belong to her when she is unable to get her medications filled. Pharmacy has been consult it and has reviewed medication list. We will be cautious with sedating medications for now and will resume home medications once patient is more awake (5) DVT prophylaxis Current Visit: No Status: Acute Assessment and plan: Heparin subcutaneous - Time Spent With Patient less than 15 minutes - Subjective Interval history: Condition initially presented with altered mental state she is on multiple sedating medications she also had a fall last night. CT of head was negative tox screen was positive for opiates and benzos. She was given Narcan in the ER and she improved however she is still groggy. Presently patient arouses to verbal stimuli she does answer questions appropriately however she does fall back to sleep during conversation. She does admit that she has been on multiple sedating medications however she states she has never had any issues with overdose. However she did have an overdose November which she did recall- she said it is because she was taking someone else's medications because she ran out of her medications. She is requesting pain medications now for her shoulder advised her that she will receive Tylenol and lidocaine patches for her shoulder. - Constitutional Vitals: Temp Pulse Resp BP Pulse Ox 98.2 F 66 18 156/71 94 07/14/17 15:57 07/14/17 15:57 07/14/17 15:57 07/14/17 15:57 07/14/17 15:57 General appearance: Present: A&O X 1, no acute distress, answers questions appropriately Exam: Patient is groggy and falls sleep during conversation - Head Head exam: Present: atraumatic, normocephalic - Eye Eye exam: Present: PERRL, conjuntiva pink, sclera anicteric Pupils: Present: PERRL - Neck Neck exam general surgery: Present: supple, trachea midline. Absent: lymphadenopathy - Respiratory Respiratory exam: Present: CTAB. Absent: accessory muscle use, rales, rhonchi, wheezes - Cardiovascular Cardiovascular exam: Present: RRR, +S1, +S2. Absent: diastolic murmur, gallop, rubs, systolic murmur - GI/Abdominal GI/Abdominal exam: Present: normal bowel sounds, soft, no peritoneal signs. Absent: distended, tenderness - Extremities Exam Extremities exam: Present: warm, radial pulses palpable and symmetrical. Absent : calf tenderness, cyanotic, pedal edema - Neurological Exam Neurological exam: Present: CN II-XII intact, oriented X3, no focal deficits. Absent: pronater drift, facial droop, speech deficit - Skin Skin exam: Present: dry, intact Internal Medicine: Result - Labs CBC & Chem 7: 07/14/17 01:15 07/14/17 01:15 - ABG Interpretation ABG results: PT/INR, D-dimer PT 10.9 Seconds (9.4-12.1) 07/14/17 01:15 Consult Discharge Plan - Plan Referrals: Inga Birch, CHEMICAL EQUIPMENT REPAIRER [Primary Care Provider] -
--- NOTE | 2017-07-14 18:00 | Electrocardiograph Report ---
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
[2017-07-14] MEDS: Acetaminophen 325 MG TABLET PO PRN (20:00)
[2017-07-15] MEDS: Acetaminophen 325 MG TABLET PO PRN ×3 (02:17→18:27)
[2017-07-15 04:10] LABS: Basophils % 0.6 %; Eosinophils # 0.1 K/mcL (0.0-0.6); Eosinophils % 2.1 %; Hematocrit 36.1 % (35.3-44.9); Hemoglobin 11.8 g/dL (11.5-15.4); Immature Granulocytes % 0.2 % (0-4); Lymphocytes # 1.4 K/mcL (0.6-4.6); Lymphocytes % 30.2 %; Mean Corpuscular HGB Conc 32.7 g/dL (31.6-35.5); Mean Corpuscular Hemoglobin 31.4 pg (28.0-33.3); Mean Platelet Volume 10.5 fL (9.4-12.4); Monocytes # 0.4 K/mcL (0.0-1.3); Monocytes % 7.6 %; Neutrophils # 2.8 K/mcL (1.6-8.9); Platelet Count 196 K/mcL (140-400); Red Blood Count 3.76 M/mcL (3.82-4.97); Red Cell Distribution Width 12.7 % (11.5-14.5); Segmented Neutrophils % 59.3 %
[2017-07-15 04:43] LABS: BUN/Creatinine Ratio 20 (6-26); Blood Urea Nitrogen 13 mg/dL (8-23); Calcium 8.8 mg/dL (8.6-10.3); Carbon Dioxide 26 mEq/L (23-29); Chloride 108 mEq/L (98-107); Glucose 121 mg/dL (70-105); Magnesium 1.8 mg/dL (1.6-2.6); Osmolality,Calculated 289 (280-300); Potassium 3.8 mEq/L (3.5-5.1); Sodium 139 mEq/L (136-145); eGFR For African Americans > 60 (> 60); eGFR For Non-African Americans > 60 (> 60)
[2017-07-15] MEDS: *HR* Heparin 5,000 UNIT/ML VIAL SQ SCH ×2 (05:33→18:24)
[2017-07-15] MEDS: amLODIPine 5 MG TABLET PO SCH (08:13)
--- NOTE | 2017-07-15 17:54 | Internal Med Progress Note ---
Date of Encounter: 07/15/17 Time of Encounter: 17:49 - Assessment and plan (1) Accidental drug overdose Current Visit: Yes Status: Acute Assessment and plan: 1 history of previous overdose-patient states that he recently started Tylenol threes. We will avoid sedating medications We will consult pediatric social worker for discharge patient's declining home health at this time we will investigate possible [facility] pharmacy to set up monthly pill dispenser. Qualifiers: Encounter type: subsequent encounter Qualified Code(s): T50.901D - Poisoning by unspecified drugs, medicaments and biological substances, accidental (unintentional), subsequent encounter (2) Acute encephalopathy Current Visit: No Status: Resolved Assessment and plan: This is resolved most likely related to drug overdose- appears to be at baseline (3) Hypothyroidism Current Visit: No Status: Chronic Assessment and plan: Continue with Synthroid Qualifiers: Hypothyroidism type: unspecified Qualified Code(s): E03.9 - Hypothyroidism , unspecified (4) Polypharmacy Current Visit: No Status: Chronic Assessment and plan: Consulted pediatric social worker for discharge planning patient declining home health at this time. We will investigate possible [facility] pharmacy for monthly drug dispensing (5) DVT prophylaxis Current Visit: No Status: Acute Assessment and plan: Heparin subcutaneous - Time Spent With Patient 25 - 35 minutes - Subjective Interval history: Patient is much more awake today and appropriate following simple commands. We discussed her medication regime asked patient how she takes her medicines she states I have 2 bags 1 full pill bottles for morning pills and another back full of evening pill bottles and pills and he did take twice a day. She just recently was given prescriptions for Tylenol threes as well as she states any change and her psychiatry medicine however a review of the med list with the pharmacist yesterday did not show any new psych medications. I discussed home health which she adamantly declined. I asked the patient's who is present if he persists with medications and he says no she takes care of herself. They did express an interest in dye [facility] pharmacy can prepare the meds for them monthly and that they are and prepackaged monthly containers. We will investigate further consulted pediatric social worker for discharge planning - Constitutional Vitals: Temp Pulse Resp BP Pulse Ox 98.1 F 63 18 150/77 93 07/15/17 17:05 07/15/17 17:05 07/15/17 17:18 17:05 07/15/17 17:05 General appearance: Present: A&O X 1, no acute distress, answers questions appropriately - Head Head exam: Present: atraumatic, normocephalic - Eye Eye exam: Present: PERRL, conjuntiva pink, sclera anicteric Pupils: Present: PERRL - Neck Neck exam general surgery: Present: supple, trachea midline. Absent: lymphadenopathy - Respiratory Respiratory exam: Present: CTAB. Absent: accessory muscle use, rales, rhonchi, wheezes - Cardiovascular Cardiovascular exam: Present: RRR, +S1, +S2. Absent: diastolic murmur, gallop, rubs, systolic murmur - GI/Abdominal GI/Abdominal exam: Present: normal bowel sounds, soft, no peritoneal signs. Absent: distended, tenderness - Extremities Exam Extremities exam: Present: warm, radial pulses palpable and symmetrical. Absent : calf tenderness, cyanotic, pedal edema - Neurological Exam Neurological exam: Present: CN II-XII intact, oriented X3, no focal deficits. Absent: pronater drift, facial droop, speech deficit Internal Medicine: Result - Labs CBC & Chem 7: 07/15/17 03:51 07/15/17 03:51 Labs: Short CBC 07/15/17 Range/Units 03:51 WBC 4.7 (4.3-11.1) K/mcL Hgb 11.8 (11.5-15.4) g/dL Hct 36.1 (35.3-44.9) % Plt Count 196 (140-400) K/mcL Neutrophils # 2.8 (1.6-8.9) K/mcL BMP 07/15/17 03:51 Sodium 139 Potassium 3.8 Chloride 108 H Carbon Dioxide 26 BUN 13 Creatinine 0.66 Glucose 121 H Calcium 8.8 - ABG Interpretation ABG results: PT/INR, D-dimer PT 10.9 Seconds (9.4-12.1) 07/14/17 01:15 Consult Discharge Plan - Plan Referrals: Inga Birch, COMBAT SYSTEMS OPERATOR [employer] [Primary Care Provider] -
[2017-07-15] MEDS: Ziprasidone 20 MG CAPSULE PO SCH (21:17)
[2017-07-16] MEDS: Acetaminophen 325 MG TABLET PO PRN ×2 (04:40→12:13)
[2017-07-16] MEDS: *HR* Heparin 5,000 UNIT/ML VIAL SQ SCH (05:46)
[2017-07-16 07:06] VITALS: BP 147/81
[2017-07-16] MEDS: amLODIPine 5 MG TABLET PO SCH (07:48)
[2017-07-16] MEDS: Ziprasidone 20 MG CAPSULE PO SCH (07:54)
--- NOTE | 2017-07-16 11:55 | Discharge Summary ---
Date of Encounter: 07/17/17 Time of Encounter: 11:35 - Discharge Diagnosis (1) Accidental drug overdose Priority: Primary Status: Acute Comments: Patient is on multiple sedating medications she states she was recently initiated on Tylenol 3 due to right shoulder pain- patient has a history of osteoarthritis. Patient had a previous accidental overdose and April 2017 I did discuss with patient alternative medications other than narcotics to use for pain management. Patient's also seen as outpatient through pain management. I also discussed in depth with the patient how she takes her medications she basically places pill bottles in 2 to baggies one for morning 1 for afternoon if they are taken twice a day she puts them in the afternoon baggies. I did review patient's home medications with pharmacist we did decrease some of her medications. I did discuss with patient home health to assist her with her medications which she declined at this time. I discussed with patient's and with patient that she is a high risk for another drug overdose since she has so many medications she is not aware of what she is taking patient feels that she has everything under control states that the manages her own medications. She did agree to having her pills bubble wrapped per her pharmacy she states that this helped her daughter whenever she had an accidental overdose. They both agreed to this type of medication dispensing so we will pursue this as an outpatient. I encouraged patient to review her medications with her primary care provider and reduce any unnecessary medications. Patient agreed. Qualifiers: Encounter type: subsequent encounter Qualified Code(s): T50.901D - Poisoning by unspecified drugs, medicaments and biological substances, accidental (unintentional), subsequent encounter (2) Acute encephalopathy Priority: Primary Status: Resolved Comments: Most likely related to drug overdose. Patient has been taking Tylenol 3's which were new medications as well as several sedating medications and psychiatric medication. She has difficulty managing her medication regime (3) Hypothyroidism Priority: Secondary Status: Chronic Comments: Continue Synthroid Qualifiers: Hypothyroidism type: unspecified Qualified Code(s): E03.9 - Hypothyroidism , unspecified (4) Polypharmacy Priority: Primary Status: Chronic Comments: Patient is on multiple sedating medications she states she was recently initiated on Tylenol 3 due to right shoulder pain- patient has a history of osteoarthritis. Patient had a previous accidental overdose and April 2017 I did discuss with patient alternative medications other than narcotics to use for pain management. Patient's also seen as outpatient through pain management. I also discussed in depth with the patient how she takes her medications she basically places pill bottles in 2 to baggies one for morning 1 for afternoon if they are taken twice a day she puts them in the afternoon baggies. I did review patient's home medications with pharmacist we did decrease some of her medications. I did discuss with patient home health to assist her with her medications which she declined at this time. I discussed with patient's and with patient that she is a high risk for another drug overdose since she has so many medications she is not aware of what she is taking patient feels that she has everything under control states that the manages her own medications. She did agree to having her pills bubble wrapped per her pharmacy she states that this helped her daughter whenever she had an accidental overdose. They both agreed to this type of medication dispensing so we will pursue this as an outpatient. I encouraged patient to review her medications with her primary care provider and reduce any unnecessary medications. Patient agreed. - Discharge Medications Prescriptions: Lidocaine 1 each TP DAILY #7 adh..patch Lidocaine Patch [Lidoderm 5% patch] 1 each TP DAILY 7 Days #7 adh..patch Home Medications: Levothyroxine [Synthroid] 112 mcg PO DAILY 01/19/16 [History] Omeprazole [PriLOSEC] 40 mg PO DAILY 01/19/16 [History] Oxygen 2.5 l NS HS 01/19/16 [History] Pregabalin [Lyrica] 75 mg PO BID 01/19/16 [History] Simvastatin [Zocor] 40 mg PO HS 01/19/16 [History] Trihexyphenidyl HCl 5 mg PO BID 01/19/16 [History] Topiramate [Topamax] 50 mg PO BID 08/11/16 [History] Cetirizine HCl [Zyrtec] 10 mg PO DAILY 03/28/17 [History] Ferrous Sulfate [Iron] 325 mg PO DAILY 03/28/17 [History] Multivitamin [One Daily Multivitamin] 1 each PO DAILY 03/28/17 [History] Simethicone [Gas Relief] 125 mg PO QID PRN 03/28/17 [History] traZODone [TraZODone] 50 mg PO HS 03/28/17 [History] amLODIPine [Norvasc] 5 mg PO DAILY #30 tablet 03/31/17 [Rx] Ziprasidone HCl [Geodon] 80 mg PO BID 04/26/17 [History] clonazePAM [Klonopin] 0.5 mg PO TID 04/26/17 [History] DULoxetine [Cymbalta] 20 mg PO BID 07/14/17 [History] Acetaminophen [Tylenol] 650 mg PO Q6HR PRN tablet 07/16/17 [Rx] Ipratropium/Albuterol Neb [Duoneb] 3 ml IH [id number] PRN inhsol 07/16/17 [Rx] Lidocaine 1 each TP DAILY #7 adh..patch 07/16/17 [Rx] Lidocaine Patch [Lidoderm 5% patch] 1 each TP DAILY 7 Days #7 adh..patch [Rx] Allergies/Adverse Reactions: 3 Allergy/AdvReac Type Severity Reaction Status Date / Time aspirin Allergy Difficulty Verified 04/26/17 09:26 Breathing iodine AdvReac Redness of Verified 04/26/17 09:26 Skin morphine AdvReac Itching Verified 04/26/17 09:26 tape AdvReac Rash Uncoded 04/26/17 09:26 Date of admission: 07/14/17 03:08 Primary care physician: Inga Birch CNP Consults: 07/14/17 04:31 Consult for Pharmacy Education [CONS] Routine Reason for Consult: Polypharmacy overdose Call Completed: No 07/15/17 17:48 Consult to Coffee Shop Aide [CONS] Routine Reason for SW Consult: discharge planning Discharging clinician: Nanette Zamudio Anticipated date of discharge: 07/16/17 - Patient Status Disposition: Home, Self-Care Condition: Good Overall status at discharge: patient is progressing back to baseline - Discharge Instructions Instructions: Lidocaine Patch (On the skin), Altered Mental Status (GEN) Follow Up With: Inga Birch CNP [Primary Care Provider] - (please call and schedule follow up appointment within the next 7 to 10 days with your primary care physician. ) - Diet and Activity Activity: increase activity as tolerated Diet: advance to your usual diet Hospital course: Ms. Dee is a 61 year old female past medical history of hypothyroid COPD chronic shoulder pain-patient is on multiple pain medications as well as other sedating medications and psychiatric medications. Patient presented to the ER for altered mental state apparently she became confused after taking medication and did have a episode where she fell when EMS arrived patient was unresponsive she was given Narcan which patient did arouse after demonstration. Urine tox was positive for opioids and benzodiazepines.Patient is on multiple sedating medications she states she was recently initiated on Tylenol 3 due to right shoulder pain- patient has a history of osteoarthritis. Patient had a previous accidental overdose and April 2017 I did discuss with patient alternative medications other than narcotics to use for pain management. Patient's also seen as outpatient through pain management. I also discussed in depth with the patient how she takes her medications she basically places pill bottles in 2 to baggies one for morning 1 for afternoon if they are taken twice a day she puts them in the afternoon baggies. I did review patient's home medications with pharmacist we did decrease some of her medications. I did discuss with patient home health to assist her with her medications which she declined at this time. I discussed with patient's and with patient that she is a high risk for another drug overdose since she has so many medications she is not aware of what she is taking patient feels that she has everything under control states that the manages her own medications. She did agree to having her pills bubble wrapped per her pharmacy she states that this helped her daughter whenever she had an accidental overdose. They both agreed to this type of medication dispensing so we will pursue this as an outpatient. I encouraged patient to review her medications with her primary care provider and reduce any unnecessary medications. Patient agreed. Patient will be discharged and is to follow up with her primary care physician as well as her pain management and psychiatrist. She is alert and appropriate and hemodynamically stable at this time. Time spent discussing smoking cessation with patient: 3 to 10 minutes - Time Spent with Patient Total time spent providing and/or coordinating discharge services: - Constitutional Vitals: Temp Pulse Resp BP Pulse Ox 98.0 F 67 16 147/81 98 07/16/17 07:03 07/16/17 07:03 07/16/17 07:03 07/16/17 07:03 07/16/17 07:03 General appearance: Present: A&O X 1, no acute distress, answers questions appropriately - Head Head exam: Present: atraumatic, normocephalic - Eye Eye exam: Present: PERRL, conjuntiva pink, sclera anicteric Pupils: Present: PERRL - Neck Neck exam general surgery: Present: supple, trachea midline. Absent: lymphadenopathy - Respiratory Respiratory exam: Present: CTAB. Absent: accessory muscle use, rales, rhonchi, wheezes - Cardiovascular Cardiovascular exam: Present: RRR, +S1, +S2. Absent: diastolic murmur, gallop, rubs, systolic murmur - GI/Abdominal GI/Abdominal exam: Present: normal bowel sounds, soft, no peritoneal signs. Absent: distended, tenderness - Extremities Exam Extremities exam: Present: warm, radial pulses palpable and symmetrical. Absent : calf tenderness, cyanotic, pedal edema - Neurological Exam Neurological exam: Present: CN II-XII intact, oriented X3, no focal deficits. Absent: pronater drift, facial droop, speech deficit - Skin Skin exam: Present: dry, intact
== END 2017-07-16 12:55 | disposition home or self-care (01) ==
LOC: EMEROO 23:25 → 3BNU 23:25
PROVIDERS: ADMIT Pediatrics; ATTEND Registered Nurse

== ENCOUNTER 2019-07-07 18:57 | Inpatient (IN) ==
[2019-07-07] MEDS ORDERED: 0.9 % Sodium Chloride 1,000 ML ONE (19:05)
[2019-07-07] MEDS ORDERED: Naloxone 0.4 MG/ML INJ IVP ONE (19:08)
[2019-07-07] MEDS ORDERED: 0.9 % Sodium Chloride 1,000 ML IVC ONE ×2 (19:08→19:36)
[2019-07-07] MEDS ORDERED: Calcium Gluconate 1gm/50mL 1 GM/50 ML BAG IVPB ONE (19:24)
[2019-07-07] MEDS ORDERED: Piperacillin/Tazobactam 3.375 GM in Water for inj. (sterile) 20 ML IVP ONE (19:33)
[2019-07-07 20:06] LABS: Bilirubin,Urine Negative (Negative); Blood,Urine Negative (Negative); Clarity,Urine Clear (Clear); Color,Urine Yellow (Yellow); Glucose,Urine (UA) Normal (Normal); Ketones,Urine Negative (Negative); Leukocyte Esterase,Urine Negative (Negative); Nitrite,Urine Negative (Negative); PH,Urine 6.5 pH Units (5.0-8.0); Protein,Urine Negative (Neg-Trace); Specific Gravity,Urine 1.007 (1.010-1.025); Urobilinogen,Urine Normal (Normal)
[2019-07-07 20:16] LABS: Amphetamine Screen,Urine Negative ng/mL (Cutoff=1000); Barbiturate Screen,Urine Negative ng/mL (Cutoff=200); Benzodiazepines Screen,Urine Positive ng/mL (Cutoff=200); Cannabinoid Screen,Urine Negative ng/mL (Cutoff = 50); Cocaine Screen,Urine Negative ng/mL (Cutoff= 300); Opiate Screen,Urine Negative ng/mL (Cutoff=300); Phencyclidine Screen,Urine Negative ng/mL (Cutoff=25)
[2019-07-07 20:30] LABS: VBG HCO3 26 mEq/L (21-27); VBG PCO2 50 mmHg (41-51); VBG PH 7.32 pH Units (7.32-7.42); VBG PO2 100 mmHg (25-50)
[2019-07-07 20:30] LABS: Basophils % 0.6 %; Eosinophils # 0.1 K/mcL (0.0-0.6); Eosinophils % 2.2 %; Hematocrit 28.8 % (35.3-44.9); Hemoglobin 9.8 g/dL (11.5-15.4); Immature Granulocytes % 0.3 % (0-4); Lymphocytes # 1.6 K/mcL (0.6-4.6); Lymphocytes % 43.5 %; Mean Corpuscular Hemoglobin 32.6 pg (28.0-33.3); Mean Corpuscular Volume 95.7 fL (83.0-100.0); Mean Platelet Volume 10.3 fL (9.4-12.4); Monocytes # 0.3 K/mcL (0.0-1.3); Monocytes % 7.4 %; Neutrophils # 1.7 K/mcL (1.6-8.9); Platelet Count 152 K/mcL (140-400); Red Blood Count 3.01 M/mcL (3.82-4.97); Red Cell Distribution Width 13.3 % (11.5-14.5); White Blood Count 3.6 K/mcL (4.3-11.1)
[2019-07-07] MEDS ORDERED: *HR* Atropine Sulfate 1 MG/10 ML SYRINGE IVP STA (20:33)
[2019-07-07] MEDS ORDERED: *HR* Atropine Sulfate 1 MG/10 ML SYRINGE ONE (20:33)
[2019-07-07] MEDS ORDERED: Hydrocortisone Sodium Succ 100 MG/2 ML VIAL IVP ONE (20:36)
[2019-07-07 20:51] LABS: Acetaminophen < 10 mcg/mL (10-20); Alanine Aminotransferase 9 Units/L (7-52); Albumin 3.4 g/dL (3.5-5.7); Albumin/Globulin Ratio 2.3 (1.1-2.2); Alkaline Phosphatase 53 Units/L (34-104); Aspartate Amino Transferase 11 Units/L (13-39); BUN/Creatinine Ratio 10 (6-26); Bilirubin,Indirect 0.2 mg/dL (0.0-1.0); Bilirubin,Total 0.2 mg/dL (0.3-1.0); Blood Urea Nitrogen 9 mg/dL (8-23); Calcium 9.1 mg/dL (8.6-10.3); Carbon Dioxide 25 mEq/L (23-29); Chloride 109 mEq/L (98-107); Creatine Kinase 63 Units/L (30-223); Ethanol < 10 mg/dL (Less than 10); Globulin 1.5 g/dL (2.4-3.5); Glucose 98 mg/dL (70-105); Magnesium 1.9 mg/dL (1.6-2.6); Osmolality,Calculated 287 (280-300); Potassium 3.4 mEq/L (3.5-5.1); Salicylate < 2.5 mg/dL (15.0-30.0); Sodium 139 mEq/L (136-145); Total Protein 4.9 g/dL (6.4-8.9); Troponin I < 0.03 ng/mL (< 0.04); eGFR For African Americans > 60 (> 60); eGFR For Non-African Americans > 60 (> 60)
[2019-07-07 23:01] LABS: Iron 40 mcg/dL (50-170)
[2019-07-07] MEDS ORDERED: Naloxone 0.4 MG/ML INJ IVP PRN (23:45)
[2019-07-08 00:13] LABS: Hematocrit 34.7 % (35.3-44.9)
[2019-07-08 04:07] LABS: Basophils % 0.2 %; Eosinophils % 0.2 %; Hematocrit 34.9 % (35.3-44.9); Hemoglobin 12.2 g/dL (11.5-15.4); Immature Granulocytes % 0.4 % (0-4); Lymphocytes # 0.6 K/mcL (0.6-4.6); Lymphocytes % 11.7 %; Mean Corpuscular Hemoglobin 32.9 pg (28.0-33.3); Mean Corpuscular Volume 94.1 fL (83.0-100.0); Mean Platelet Volume 10.1 fL (9.4-12.4); Monocytes # 0.2 K/mcL (0.0-1.3); Neutrophils # 4.2 K/mcL (1.6-8.9); Platelet Count 200 K/mcL (140-400); Red Blood Count 3.71 M/mcL (3.82-4.97); Red Cell Distribution Width 13.3 % (11.5-14.5); Segmented Neutrophils % 84.5 %; White Blood Count 4.9 K/mcL (4.3-11.1)
[2019-07-08] MEDS: Lactulose Oral Soln 20 GM/30 ML UDC PO SCH ×2 (04:10→06:15)
[2019-07-08 04:26] LABS: Alanine Aminotransferase 11 Units/L (7-52); Albumin 4.2 g/dL (3.5-5.7); Alkaline Phosphatase 61 Units/L (34-104); Aspartate Amino Transferase 14 Units/L (13-39); BUN/Creatinine Ratio 9 (6-26); Bilirubin,Total 0.3 mg/dL (0.3-1.0); Blood Urea Nitrogen 8 mg/dL (8-23); Carbon Dioxide 25 mEq/L (23-29); Chloride 105 mEq/L (98-107); Globulin 2.1 g/dL (2.4-3.5); Glucose 146 mg/dL (70-105); Magnesium 1.9 mg/dL (1.6-2.6); Osmolality,Calculated 293 (280-300); Phosphorous 4.5 mg/dL (2.7-4.5); Potassium 3.8 mEq/L (3.5-5.1); Sodium 141 mEq/L (136-145); Total Protein 6.3 g/dL (6.4-8.9); eGFR For African Americans > 60 (> 60); eGFR For Non-African Americans > 60 (> 60)
[2019-07-08] MEDS: *HR* Heparin 5,000 UNIT/ML VIAL SQ SCH ×2 (06:15→17:39)
[2019-07-08] MEDS ORDERED: traZODone 50 MG TABLET PO PRN (08:08)
[2019-07-08] MEDS ORDERED: Ipratropium/Albuterol Neb 3 ML IH PRN (08:08)
[2019-07-08] MEDS ORDERED: clonazePAM 0.5 MG TABLET PO PRN (08:08)
[2019-07-08] MEDS ORDERED: Furosemide 20 MG TABLET PO SCH (09:00)
[2019-07-08] MEDS: Topiramate 25 MG TABLET PO SCH ×2 (09:14→20:22)
[2019-07-08] MEDS: BuPROPion XL (24 HR) 150 MG TABLET PO SCH (09:15)
[2019-07-08] MEDS ORDERED: tiZANidine 4 MG TABLET PO PRN (13:03)
[2019-07-08] MEDS ORDERED: Simethicone 80 MG TAB.CHEW PO PRN (13:03)
[2019-07-08] MEDS ORDERED: *HR* HYDROcodone/Acet 5/325 mg TABLET PO PRN (13:07)
[2019-07-08] MEDS ORDERED: *HR* Promethazine 25 MG/ML VIAL IVP PRN (13:08)
[2019-07-08] MEDS ORDERED: *HR* Acetaminophen w/Cod 300-30 mg 1 TAB TABLET PO PRN (13:23)
[2019-07-08] MEDS: Furosemide 40 MG/4 ML VIAL IVP SCH ×2 (13:31→20:24)
[2019-07-08] MEDS: Ziprasidone 80 MG CAPSULE PO SCH (20:23)
[2019-07-08] MEDS: Pregabalin 75 MG CAPSULE PO SCH (20:23)
[2019-07-08] MEDS ORDERED: Lactulose Oral Soln 20 GM/30 ML UDC PO SCH (21:30)
[2019-07-09 06:06] LABS: BUN/Creatinine Ratio 10 (6-26); Blood Urea Nitrogen 10 mg/dL (8-23); Calcium 8.6 mg/dL (8.6-10.3); Carbon Dioxide 28 mEq/L (23-29); Chloride 103 mEq/L (98-107); Glucose 88 mg/dL (70-105); Magnesium 2.1 mg/dL (1.6-2.6); Osmolality,Calculated 284 (280-300); Phosphorous 3.7 mg/dL (2.7-4.5); Potassium 3.5 mEq/L (3.5-5.1); Sodium 138 mEq/L (136-145); eGFR For African Americans > 60 (> 60); eGFR For Non-African Americans 56 (> 60)
[2019-07-09] MEDS: *HR* Heparin 5,000 UNIT/ML VIAL SQ SCH (06:18)
[2019-07-09] MEDS ORDERED: amLODIPine 5 MG TABLET PO SCH (09:00)
[2019-07-09] MEDS ORDERED: Loratadine 10 MG TABLET PO SCH (09:00)
[2019-07-09] MEDS ORDERED: Multivit/Ca/Min/Fe/FA 1 TAB TABLET PO SCH (09:00)
[2019-07-09] MEDS: Topiramate 25 MG TABLET PO SCH (09:16)
[2019-07-09] MEDS: Pregabalin 75 MG CAPSULE PO SCH (09:16)
[2019-07-09] MEDS: BuPROPion XL (24 HR) 150 MG TABLET PO SCH (09:17)
[2019-07-09] MEDS: Furosemide 40 MG/4 ML VIAL IVP SCH (09:17)
[2019-07-09] MEDS: Ziprasidone 80 MG CAPSULE PO SCH (09:17)
[2019-07-09 11:20] VITALS: BP 120/60
[2019-07-09] MEDS ORDERED: FLU Vac QV 19-20 (6Month+)/PF 0.5 ML SYRINGE IM ONE (12:32)
== END 2019-07-09 13:58 | disposition home or self-care (01) | DRG 948 ==
LOC: EMEROOARM 18:57 → 2NNU 18:57 → SUATTDRO 23:54 → OBSVTOIN 23:54 → 2NNU 07-08 00:39
PROVIDERS: ADMIT Internal Medicine; ATTEND Internal Medicine

== ENCOUNTER 2020-02-03 08:17 | Inpatient (IN) ==
[2020-02-03] MEDS ORDERED: *HR* HYDROcodone/Acet 5/325 mg TABLET PO ONE (10:39)
[2020-02-03] MEDS ORDERED: *HR* HYDROmorphone PF 0.5 MG/0.5 ML SYRINGE IVP PRN (12:21)
[2020-02-03] MEDS ORDERED: *HR* HYDROcodone/Acet 5/325 mg TABLET PO PRN (12:21)
[2020-02-03] MEDS ORDERED: Ondansetron 4 MG/2 ML VIAL IVP ONE (12:21)
[2020-02-03] MEDS ORDERED: Lidocaine -MPF 2% 2 ML VIAL ONE ×2 (14:16→16:20)
[2020-02-03] MEDS ORDERED: Lidocaine HCL 4 ML Topical Solution (Laryng-O-Jet Kit Sterile Pak) TP ONE ×2 (14:16→16:20)
[2020-02-03] MEDS ORDERED: *HR* Succinylcholine 200 MG/10 ML VIAL IVP ONE ×2 (14:16→16:20)
[2020-02-03] MEDS ORDERED: Dexamethasone 4 MG/ML VIAL ONE ×2 (14:16→16:20)
[2020-02-03] MEDS ORDERED: Ondansetron 4 MG/2 ML VIAL ONE ×2 (14:16→16:20)
[2020-02-03] MEDS ORDERED: *HR* Propofol 200 MG/20 ML VIAL IVP ONE ×2 (14:16→15:44)
[2020-02-03] MEDS ORDERED: CeFAZolin Syr 2,000MG/20 ML 2,000 MG/20 ML SYRINGE IVPB ONE (14:53)
[2020-02-03] MEDS ORDERED: Ringers Solution, Lactated 1,000 ML IVC SCH (15:00)
[2020-02-03] MEDS ORDERED: *HR* FentaNYL (PF) 100 MCG/2 ML VIAL ONE ×2 (15:43→17:32)
[2020-02-03] MEDS ORDERED: *HR* Midazolam HCl 2 MG/2 ML VIAL ONE (15:43)
[2020-02-03] MEDS ORDERED: Ropivacaine/PF 0.5% 30 ML VIAL ONE (15:48)
[2020-02-03] MEDS ORDERED: Vancomycin 1,000 MG VIAL ONE (16:05)
[2020-02-03] MEDS ORDERED: Ethanol\\Acetic Acid\\Na Ace\\Ben 1,000 ML IRRIG.SOLN IR ONE (16:06)
[2020-02-03] MEDS ORDERED: *HR* Labetalol 20 MG/4 ML SYRINGE IVP ONE (17:37)
[2020-02-03] MEDS ORDERED: *HR* Enoxaparin 30 MG/0.3 ML SYRINGE SQ SCH (18:00)
[2020-02-03 18:30] LABS: Hematocrit 34.5 % (35.3-44.9); Hemoglobin 11.1 g/dL (11.5-15.4)
[2020-02-03] MEDS ORDERED: *HR* OxyCODONE Immed Rel 5 MG TABLET PO PRN (18:49)
[2020-02-03] MEDS ORDERED: Dextrose Gel 15 GM/37.5 ML TUBE PO PRN ×2 (18:49)
[2020-02-03] MEDS ORDERED: MOM Conc 10 ML UD.LIQ PO PRN (18:49)
[2020-02-03] MEDS ORDERED: D5% in Water 1,000 ML IVC PRN (18:49)
[2020-02-03] MEDS ORDERED: traZODone 50 MG TABLET PO PRN (18:49)
[2020-02-03] MEDS ORDERED: *HR* Dextrose 50 % in Water (Vial) 50 ML VIAL IVP PRN (18:49)
[2020-02-03] MEDS ORDERED: tiZANidine 4 MG TABLET PO PRN (18:49)
[2020-02-03] MEDS ORDERED: Ondansetron 4 MG/2 ML VIAL IVP PRN (18:49)
[2020-02-03] MEDS ORDERED: clonazePAM 0.5 MG TABLET PO PRN (18:49)
[2020-02-03] MEDS ORDERED: Ipratropium/Albuterol Neb 3 ML IH PRN (18:49)
[2020-02-03] MEDS ORDERED: Sennosides 8.6 MG TABLET PO PRN (18:49)
[2020-02-03] MEDS: Insulin LISPRO 300 UNITS/3 ML VIAL SQ SCH (19:39)
[2020-02-03] MEDS: *HR* OxyCODONE/APAP 5/325 TABLET PO PRN (19:50)
[2020-02-03] MEDS ORDERED: Insulin LISPRO 300 UNITS/3 ML VIAL SQ SCH (21:00)
[2020-02-03] MEDS: Ziprasidone 80 MG CAPSULE PO SCH (21:23)
[2020-02-03] MEDS: Pregabalin 75 MG CAPSULE PO SCH (21:23)
[2020-02-03] MEDS: Topiramate 25 MG TABLET PO SCH (21:23)
[2020-02-03] MEDS: Ringers Solution, Lactated 1,000 ML IVC SCH (21:36)
[2020-02-03] MEDS: CeFAZolin 2 GM/120 ML BAG IVPB SCH (23:47)
[2020-02-04 01:48] LABS: Hematocrit 30.9 % (35.3-44.9); Hemoglobin 10.1 g/dL (11.5-15.4)
[2020-02-04 02:04] LABS: BUN/Creatinine Ratio 14 (6-26); Blood Urea Nitrogen 9 mg/dL (8-23); Calcium 8.5 mg/dL (8.6-10.3); Carbon Dioxide 24 mEq/L (23-29); Chloride 106 mEq/L (98-107); Glucose 137 mg/dL (70-105); Osmolality,Calculated 285 (280-300); Sodium 137 mEq/L (136-145); eGFR For African Americans > 60 (> 60); eGFR For Non-African Americans > 60 (> 60)
[2020-02-04] MEDS ORDERED: *HR* Enoxaparin 30 MG/0.3 ML SYRINGE SQ SCH (06:00)
[2020-02-04 07:25] VITALS: BP 114/67
[2020-02-04] MEDS: Pregabalin 75 MG CAPSULE PO SCH (07:38)
[2020-02-04] MEDS: Ziprasidone 80 MG CAPSULE PO SCH (07:38)
[2020-02-04] MEDS: Topiramate 25 MG TABLET PO SCH (07:39)
[2020-02-04] MEDS: Ringers Solution, Lactated 1,000 ML IVC SCH (07:40)
[2020-02-04] MEDS: Insulin LISPRO 300 UNITS/3 ML VIAL SQ SCH (07:40)
[2020-02-04] MEDS: CeFAZolin 2 GM/120 ML BAG IVPB SCH (07:41)
[2020-02-04] MEDS: *HR* OxyCODONE/APAP 5/325 TABLET PO PRN (07:54)
[2020-02-04] MEDS ORDERED: Multivit/Ca/Min/Fe/FA 1 TAB TABLET PO SCH (09:00)
[2020-02-04] MEDS ORDERED: Loratadine 10 MG TABLET PO SCH (09:00)
[2020-02-04] MEDS ORDERED: BuPROPion XL (24 HR) 150 MG TABLET PO SCH (09:00)
[2020-02-04] MEDS ORDERED: Furosemide 20 MG TABLET PO SCH (09:00)
[2020-02-04] MEDS ORDERED: amLODIPine 5 MG TABLET PO SCH (09:00)
== END 2020-02-04 11:28 | disposition home health service (06) | DRG 483 ==
LOC: SAMDAY 08:17 → 3NENU 18:48
PROVIDERS: ADMIT Orthopaedic Surgery; ATTEND Orthopaedic Surgery

== ENCOUNTER 2020-03-02 13:35 | Observation (INO) ==
[2020-03-02] MEDS ORDERED: Nitroglycerin 0.4 MG TAB.SUBL SL PRN (13:46)
[2020-03-02 14:58] LABS: Basophils % 0.5 %; Eosinophils # 0.1 K/mcL (0.0-0.6); Eosinophils % 2.2 %; Hematocrit 36.5 % (35.3-44.9); Hemoglobin 11.6 g/dL (11.5-15.4); Immature Granulocytes % 0.2 % (0-4); Lymphocytes # 1.5 K/mcL (0.6-4.6); Lymphocytes % 27.7 %; Mean Corpuscular HGB Conc 31.8 g/dL (31.6-35.5); Mean Corpuscular Hemoglobin 31.8 pg (28.0-33.3); Mean Platelet Volume 9.6 fL (9.4-12.4); Monocytes # 0.5 K/mcL (0.0-1.3); Monocytes % 9.1 %; Neutrophils # 3.3 K/mcL (1.6-8.9); Platelet Count 221 K/mcL (140-400); Red Blood Count 3.65 M/mcL (3.82-4.97); Red Cell Distribution Width 13.3 % (11.5-14.5); Segmented Neutrophils % 60.3 %; White Blood Count 5.5 K/mcL (4.3-11.1)
[2020-03-02 15:32] LABS: Adenovirus Not Detected (Not Detect); Bordetella Pertussis Not Detected (Not Detect); Chlamydophila pneumoniae Not Detected (Not Detect); Coronavirus 229E Not Detected (Not Detect); Coronavirus HKU1 Not Detected (Not Detect); Coronavirus NL63 Not Detected (Not Detect); Coronavirus OC43 Not Detected (Not Detect); Human Metapneumovirus Not Detected (Not Detect); Human Rhinovirus/Enterovirus DETECTED (Not Detect); Influenza A Subtype 2009 H1 Not Detected (Not Detect); Influenza B Not Detected (Not Detect); Mycoplasma pneumoniae Not Detected (Not Detect); Parainfluenza Virus 1 Not Detected (Not Detect); Parainfluenza Virus 2 Not Detected (Not Detect); Parainfluenza Virus 3 Not Detected (Not Detect); Parainfluenza Virus 4 Not Detected (Not Detect); Respiratory Syncytial Virus Not Detected (Not Detect); SARS-CoV-2 Not Detected (Not Detect)
[2020-03-02 15:40] LABS: Prothrombin Time 11.9 Seconds (9.4-12.1)
[2020-03-02 16:47] LABS: BUN/Creatinine Ratio 14 (6-26); Blood Urea Nitrogen 10 mg/dL (8-23); Calcium 9.1 mg/dL (8.6-10.3); Carbon Dioxide 29 mEq/L (23-29); Chloride 101 mEq/L (98-107); Glucose 86 mg/dL (70-105); Osmolality,Calculated 280 (280-300); Potassium 3.7 mEq/L (3.5-5.1); Sodium 136 mEq/L (136-145); eGFR For African Americans > 60 (> 60); eGFR For Non-African Americans > 60 (> 60)
[2020-03-02] MEDS ORDERED: Acetaminophen 325 MG TABLET PO PRN (17:29)
[2020-03-02] MEDS ORDERED: Naloxone 0.4 MG/ML INJ IVP PRN (17:29)
[2020-03-02] MEDS ORDERED: Perflutren Lipid Microsphere 1.3 ML in 0.9 % Sodium Chloride 8.7 ML IVP PRN (17:33)
[2020-03-02] MEDS ORDERED: Ipratropium/Albuterol Neb 3 ML IH PRN (17:33)
[2020-03-02] MEDS ORDERED: diazePAM 5 MG TABLET PO PRN (18:34)
[2020-03-02] MEDS ORDERED: clonazePAM 0.5 MG TABLET PO PRN (18:34)
[2020-03-02] MEDS ORDERED: Simethicone 80 MG TAB.CHEW PO PRN (18:34)
[2020-03-02] MEDS ORDERED: tiZANidine 4 MG TABLET PO PRN (18:34)
[2020-03-02] MEDS: Ipratropium/Albuterol Neb 3 ML IH SCH ×2 (20:07→23:11)
[2020-03-02] MEDS: Topiramate 25 MG TABLET PO SCH (20:55)
[2020-03-02] MEDS: *HR* OxyCODONE Immed Rel 5 MG TABLET PO PRN (20:55)
[2020-03-02] MEDS: Ziprasidone 80 MG CAPSULE PO SCH (20:57)
[2020-03-03 02:14] LABS: Basophils % 0.5 %; Eosinophils # 0.1 K/mcL (0.0-0.6); Eosinophils % 3.1 %; Hemoglobin 10.1 g/dL (11.5-15.4); Immature Granulocytes % 0.3 % (0-4); Lymphocytes # 1.5 K/mcL (0.6-4.6); Lymphocytes % 38.7 %; Mean Corpuscular HGB Conc 32.6 g/dL (31.6-35.5); Mean Corpuscular Hemoglobin 32.6 pg (28.0-33.3); Mean Platelet Volume 9.4 fL (9.4-12.4); Monocytes # 0.4 K/mcL (0.0-1.3); Monocytes % 11.4 %; Neutrophils # 1.8 K/mcL (1.6-8.9); Platelet Count 198 K/mcL (140-400); Red Cell Distribution Width 13.4 % (11.5-14.5); White Blood Count 3.9 K/mcL (4.3-11.1)
[2020-03-03 02:28] LABS: BUN/Creatinine Ratio 18 (6-26); Blood Urea Nitrogen 12 mg/dL (8-23); Calcium 8.7 mg/dL (8.6-10.3); Carbon Dioxide 28 mEq/L (23-29); Chloride 103 mEq/L (98-107); Chol/HDL Ratio 3.1 (0-4.9); Cholesterol 137 mg/dL (< 200); Glucose 96 mg/dL (70-105); HDL Cholesterol 44 mg/dL (40-59); LDL Cholesterol,Calculated 76 mg/dL (< 100); Magnesium 2.1 mg/dL (1.6-2.6); Osmolality,Calculated 284 (280-300); Phosphorous 4.8 mg/dL (2.7-4.5); Potassium 3.7 mEq/L (3.5-5.1); Sodium 137 mEq/L (136-145); Triglycerides 83 mg/dL (< 150); eGFR For African Americans > 60 (> 60); eGFR For Non-African Americans > 60 (> 60)
[2020-03-03 03:46] LABS: Estimated Average Glucose 100 mg/dl
[2020-03-03] MEDS: Ipratropium/Albuterol Neb 3 ML IH SCH ×3 (03:57→15:57)
[2020-03-03] MEDS ORDERED: *HR* Enoxaparin 40 MG/0.4 ML SYRINGE SQ SCH (06:00)
[2020-03-03] MEDS ORDERED: amLODIPine 5 MG TABLET PO SCH (09:00)
[2020-03-03] MEDS ORDERED: Nicotine 14 MG PATCH.TD24 TD SCH (09:00)
[2020-03-03] MEDS ORDERED: Furosemide 20 MG TABLET PO SCH (09:00)
[2020-03-03] MEDS ORDERED: BuPROPion XL (24 HR) 150 MG TABLET PO SCH (09:00)
[2020-03-03] MEDS: Ziprasidone 80 MG CAPSULE PO SCH (09:00)
[2020-03-03] MEDS ORDERED: Loratadine 10 MG TABLET PO SCH (09:00)
[2020-03-03] MEDS ORDERED: Multivit/Ca/Min/Fe/FA 1 TAB TABLET PO SCH (09:00)
[2020-03-03] MEDS ORDERED: Furosemide 40 MG/4 ML VIAL IVP SCH (09:00)
[2020-03-03] MEDS: Topiramate 25 MG TABLET PO SCH (09:00)
[2020-03-03 11:13] VITALS: BP 116/66
[2020-03-03] MEDS: *HR* OxyCODONE Immed Rel 5 MG TABLET PO PRN (11:59)
== END 2020-03-03 16:52 | disposition home health service (06) ==
LOC: 3BNU 13:35 → EMEROOARM 13:35 → SUATTDRO 17:12 → 3BNU 17:42
PROVIDERS: ADMIT Internal Medicine; ATTEND Internal Medicine

== ENCOUNTER 2020-10-25 17:19 | Inpatient (IN) ==
[2020-10-25] MEDS ORDERED: 0.9 % Sodium Chloride 1,000 ML IVC ONE ×2 (17:27→19:51)
[2020-10-25] MEDS ORDERED: Ondansetron 4 MG/2 ML VIAL IVP ONE (17:27)
[2020-10-25] MEDS ORDERED: Isovue-370 500 ML BOTTLE IVP ONE (17:36)
[2020-10-25] MEDS ORDERED: Pantoprazole 40 MG VIAL IVP ONE (17:36)
[2020-10-25] MEDS ORDERED: methylPREDNISolone 125 MG/2 ML VIAL IVP ONE (17:37)
[2020-10-25 19:23] LABS: Hematocrit 37.5 % (35.3-44.9); Hemoglobin 12.8 g/dL (11.5-15.4); Mean Corpuscular HGB Conc 34.1 g/dL (31.6-35.5); Mean Corpuscular Hemoglobin 32.3 pg (28.0-33.3); Mean Corpuscular Volume 94.7 fL (83.0-100.0); Mean Platelet Volume 10.9 fL (9.4-12.4); Platelet Count 225 K/mcL (140-400); Red Blood Count 3.96 M/mcL (3.82-4.97); Red Cell Distribution Width 12.2 % (11.5-14.5); White Blood Count 14.5 K/mcL (4.3-11.1)
[2020-10-25 19:30] LABS: Bacteria,Urine Few per hpf (None-Few); Bilirubin,Urine Small (Negative); Blood,Urine Negative (Negative); Clarity,Urine Turbid (Clear); Color,Urine Yellow (Yellow); Glucose,Urine (UA) Normal (Normal); Hyaline Casts,Urine Many per lpf (None Seen); Ketones,Urine Negative (Negative); Leukocyte Esterase,Urine Negative (Negative); Mucus,Urine Few per lpf (None-Few); Nitrite,Urine Negative (Negative); PH,Urine 5.5 pH Units (5.0-8.0); Protein,Urine 50 mg/dL (Neg-Trace); RBC,Urine 0-3 per hpf (0-3); Specific Gravity,Urine 1.021 (1.010-1.025); Squamous Epithelial Cell,Urine Few per hpf (None-Few); Urobilinogen,Urine Normal (Normal); WBC,Urine 0-3 per hpf (0-3)
[2020-10-25 19:40] LABS: Lymphocytes # 3.8 K/mcL (0.6-4.6); Neutrophils # 8.4 K/mcL (1.6-8.9)
[2020-10-25 19:45] LABS: Albumin/Globulin Ratio 1.4 (1.1-2.2); Bilirubin,Direct 0.1 mg/dL (0.0-0.2); Bilirubin,Indirect 0.4 mg/dL (0.0-1.0); Bilirubin,Total 0.5 mg/dL (0.3-1.0); Calcium 8.1 mg/dL (8.6-10.3); Globulin 2.8 g/dL (2.4-3.5); Potassium 3.3 mEq/L (3.5-5.1); Total Protein 6.8 g/dL (6.4-8.9)
[2020-10-25] MEDS ORDERED: Piperacillin/Tazobactam 3.375 GM in 0.9 % Sodium Chloride Mini Bag 100 ML IVPB ONE (20:34)
[2020-10-25] MEDS ORDERED: Ondansetron 4 MG/2 ML VIAL IVP PRN (21:28)
[2020-10-25] MEDS ORDERED: *HR* Promethazine 25 MG/ML VIAL IM PRN (21:29)
[2020-10-25] MEDS ORDERED: Ipratropium/Albuterol Neb 3 ML IH PRN (21:30)
[2020-10-25] MEDS ORDERED: Albuterol 2.5 MG/3 ML NEBULIZER IH PRN (21:30)
[2020-10-25] MEDS ORDERED: *HR* LORazepam 2 MG/ML VIAL IVP PRN (21:32)
[2020-10-25] MEDS ORDERED: Naloxone 0.4 MG/ML INJ IVP PRN (21:37)
[2020-10-25] MEDS ORDERED: *HR* Metoprolol 5 MG/5 ML VIAL IVP PRN (22:25)
[2020-10-26 00:09] LABS: Adenovirus Not Detected (Not Detect); Bordetella Pertussis Not Detected (Not Detect); Chlamydophila pneumoniae Not Detected (Not Detect); Coronavirus 229E Not Detected (Not Detect); Coronavirus HKU1 Not Detected (Not Detect); Coronavirus NL63 Not Detected (Not Detect); Coronavirus OC43 Not Detected (Not Detect); Human Metapneumovirus Not Detected (Not Detect); Human Rhinovirus/Enterovirus Not Detected (Not Detect); Influenza A Subtype 2009 H1 Not Detected (Not Detect); Influenza B Not Detected (Not Detect); Mycoplasma pneumoniae Not Detected (Not Detect); Parainfluenza Virus 1 Not Detected (Not Detect); Parainfluenza Virus 2 Not Detected (Not Detect); Parainfluenza Virus 3 Not Detected (Not Detect); Parainfluenza Virus 4 Not Detected (Not Detect); Respiratory Syncytial Virus Not Detected (Not Detect); SARS-CoV-2 Not Detected (Not Detect)
[2020-10-26 01:03] LABS: Calcium 7.4 mg/dL (8.6-10.3); Potassium 3.2 mEq/L (3.5-5.1)
[2020-10-26 03:43] LABS: Hematocrit 36.3 % (35.3-44.9); Hemoglobin 12.3 g/dL (11.5-15.4); Mean Corpuscular HGB Conc 33.9 g/dL (31.6-35.5); Mean Corpuscular Hemoglobin 32.7 pg (28.0-33.3); Mean Corpuscular Volume 96.5 fL (83.0-100.0); Mean Platelet Volume 10.1 fL (9.4-12.4); Platelet Count 202 K/mcL (140-400); Red Blood Count 3.76 M/mcL (3.82-4.97); Red Cell Distribution Width 12.3 % (11.5-14.5); White Blood Count 14.6 K/mcL (4.3-11.1)
[2020-10-26 04:09] LABS: Calcium 7.4 mg/dL (8.6-10.3); Magnesium 2.2 mg/dL (1.6-2.6); Phosphorous 6.8 mg/dL (2.7-4.5); Potassium 3.5 mEq/L (3.5-5.1)
[2020-10-26 04:18] LABS: Lymphocytes # 1.2 K/mcL (0.6-4.6); Neutrophils # 13.4 K/mcL (1.6-8.9); Reactive Lymphocytes Present (Not Present); Toxic Granulation Present (Not Present)
[2020-10-26] MEDS ORDERED: 0.9 % Sodium Chloride 1,000 ML IVC SCH (07:15)
[2020-10-26 07:43] LABS: Calcium 7.5 mg/dL (8.6-10.3); Potassium 3.1 mEq/L (3.5-5.1)
[2020-10-26] MEDS ORDERED: Levothyroxine Sodium 100 MCG VIAL IVP SCH (09:00)
[2020-10-26] MEDS ORDERED: Furosemide 20 MG/2 ML VIAL IVP SCH (09:00)
[2020-10-26] MEDS ORDERED: Pantoprazole 40 MG VIAL IVP SCH (09:00)
[2020-10-26 12:12] LABS: Calcium 7.4 mg/dL (8.6-10.3); Potassium 3.2 mEq/L (3.5-5.1)
[2020-10-26] MEDS ORDERED: *HR* Succinylcholine 200 MG/10 ML VIAL IVP ONE (12:57)
[2020-10-26] MEDS ORDERED: *HR* Rocuronium Bromide 50 MG/5 ML VIAL ONE (12:57)
[2020-10-26] MEDS ORDERED: Lidocaine -MPF 2% 2 ML VIAL ONE (12:57)
[2020-10-26] MEDS ORDERED: Lidocaine HCL 4 ML Topical Solution (Laryng-O-Jet Kit Sterile Pak) TP ONE (12:57)
[2020-10-26] MEDS ORDERED: Ondansetron 4 MG/2 ML VIAL ONE (12:57)
[2020-10-26] MEDS ORDERED: *HR* FentaNYL (PF) 100 MCG/2 ML VIAL ONE (12:58)
[2020-10-26] MEDS ORDERED: *HR* Propofol 200 MG/20 ML VIAL IVP ONE (12:58)
[2020-10-26] MEDS ORDERED: *HR* Midazolam HCl 2 MG/2 ML VIAL ONE (12:58)
[2020-10-26] MEDS ORDERED: cefOXitin 2,000 MG in Water for inj. (sterile) 20 ML IVP ONE ×2 (13:32→16:56)
[2020-10-26] MEDS ORDERED: Sugammadex Sodium 200 MG/2 ML VIAL IV ONE (15:23)
[2020-10-26] MEDS ORDERED: *HR* Labetalol 20 MG/4 ML SYRINGE IVP ONE (15:26)
[2020-10-26] MEDS ORDERED: *HR* HYDROMORPHONE 2 MG/ML VIAL ONE (15:26)
[2020-10-26] MEDS ORDERED: *HR* HYDROmorphone (PF) 1 MG/ML SYRINGE IVP PRN (16:01)
[2020-10-26] MEDS ORDERED: *HR* Labetalol 20 MG/4 ML SYRINGE IVP PRN (16:01)
[2020-10-26] MEDS ORDERED: *HR* OxyCODONE Immed Rel 5 MG TABLET PO PRN (16:01)
[2020-10-26] MEDS ORDERED: *HR* HYDROmorphone 2 MG TABLET PO PRN (16:01)
[2020-10-26] MEDS ORDERED: Naloxone 0.4 MG/ML INJ IVP PRN (16:56)
[2020-10-26] MEDS ORDERED: Ipratropium/Albuterol Neb 3 ML IH PRN (16:56)
[2020-10-26] MEDS ORDERED: *HR* Metoprolol 5 MG/5 ML VIAL IVP PRN (16:56)
[2020-10-26] MEDS ORDERED: *HR* Promethazine 25 MG/ML VIAL IM PRN (16:56)
[2020-10-26] MEDS ORDERED: Albuterol 2.5 MG/3 ML NEBULIZER IH PRN (16:56)
[2020-10-26] MEDS ORDERED: Isovue-370 500 ML BOTTLE IVP ONE (16:56)
[2020-10-26] MEDS: 0.9 % Sodium Chloride 1,000 ML IVC SCH (17:36)
[2020-10-27] MEDS ORDERED: Chloraseptic Spray 177 ML BOTTLE MM PRN (00:08)
[2020-10-27] MEDS: 0.9 % Sodium Chloride 1,000 ML IVC SCH ×2 (04:16→15:32)
[2020-10-27 06:06] LABS: Hematocrit 33.5 % (35.3-44.9); Hemoglobin 11.7 g/dL (11.5-15.4); Mean Corpuscular HGB Conc 34.9 g/dL (31.6-35.5); Mean Corpuscular Hemoglobin 32.9 pg (28.0-33.3); Mean Corpuscular Volume 94.1 fL (83.0-100.0); Mean Platelet Volume 10.5 fL (9.4-12.4); Monocytes # 1.4 K/mcL (0.0-1.3); Platelet Count 213 K/mcL (140-400); Red Blood Count 3.56 M/mcL (3.82-4.97); Red Cell Distribution Width 12.5 % (11.5-14.5); White Blood Count 11.6 K/mcL (4.3-11.1)
[2020-10-27 06:31] LABS: Calcium 7.5 mg/dL (8.6-10.3); Potassium 3.5 mEq/L (3.5-5.1)
[2020-10-27 06:45] LABS: Lymphocytes # 1.6 K/mcL (0.6-4.6); Neutrophils # 7.4 K/mcL (1.6-8.9); Platelet Estimate Normal (Normal); Reactive Lymphocytes Present (Not Present); Toxic Granulation Present (Not Present)
[2020-10-27] MEDS: Pantoprazole 40 MG VIAL IVP SCH (07:47)
[2020-10-27] MEDS: Levothyroxine Sodium 100 MCG VIAL IVP SCH (07:48)
[2020-10-27] MEDS: Acetaminophen IV 1,000 MG/100 ML BAG IVPB SCH ×3 (10:14→17:29)
[2020-10-28] MEDS: Acetaminophen IV 1,000 MG/100 ML BAG IVPB SCH ×5 (00:16→23:10)
[2020-10-28] MEDS: 0.9 % Sodium Chloride 1,000 ML IVC SCH ×2 (00:16→16:31)
[2020-10-28] MEDS: Levothyroxine Sodium 100 MCG VIAL IVP SCH (08:15)
[2020-10-28] MEDS: Pantoprazole 40 MG VIAL IVP SCH (08:16)
[2020-10-28 17:18] LABS: Calcium 8.4 mg/dL (8.6-10.3)
[2020-10-28] MEDS: *HR* LORazepam 2 MG/ML VIAL IVP PRN (23:19)
[2020-10-28] MEDS: Ondansetron 4 MG/2 ML VIAL IVP PRN (23:19)
[2020-10-29] MEDS: Acetaminophen IV 1,000 MG/100 ML BAG IVPB SCH ×3 (05:54→17:12)
[2020-10-29] MEDS: 0.9 % Sodium Chloride 1,000 ML IVC SCH ×2 (06:00→17:03)
[2020-10-29 06:13] LABS: Hematocrit 31.6 % (35.3-44.9); Hemoglobin 10.4 g/dL (11.5-15.4); Mean Corpuscular HGB Conc 32.9 g/dL (31.6-35.5); Mean Corpuscular Hemoglobin 32.2 pg (28.0-33.3); Mean Corpuscular Volume 97.8 fL (83.0-100.0); Mean Platelet Volume 9.9 fL (9.4-12.4); Platelet Count 195 K/mcL (140-400); Red Blood Count 3.23 M/mcL (3.82-4.97); Red Cell Distribution Width 13.2 % (11.5-14.5); White Blood Count 14.6 K/mcL (4.3-11.1)
[2020-10-29 06:49] LABS: Lymphocytes # 3.2 K/mcL (0.6-4.6); Monocytes # 0.3 K/mcL (0.0-1.3); Neutrophils # 9.9 K/mcL (1.6-8.9); Platelet Estimate Normal (Normal); Reactive Lymphocytes Present (Not Present); Toxic Granulation Present (Not Present)
[2020-10-29 07:28] LABS: Calcium 8.3 mg/dL (8.6-10.3); Potassium 3.2 mEq/L (3.5-5.1)
[2020-10-29] MEDS: Pantoprazole 40 MG VIAL IVP SCH (08:59)
[2020-10-29] MEDS: Levothyroxine Sodium 100 MCG VIAL IVP SCH (09:04)
[2020-10-29] MEDS: Ondansetron 4 MG/2 ML VIAL IVP PRN ×2 (10:44→17:04)
[2020-10-29] MEDS ORDERED: Potassium Chloride 40 MEQ, Lidocaine 1% 2 ML in 0.9 % Sodium Chloride 500 ML IVPB ONE (16:42)
[2020-10-29] MEDS: *HR* LORazepam 2 MG/ML VIAL IVP PRN (19:17)
[2020-10-29] MEDS ORDERED: Nitroglycerin 0.4 MG TAB.SUBL SL PRN (19:52)
[2020-10-30] MEDS: Acetaminophen IV 1,000 MG/100 ML BAG IVPB SCH ×4 (00:54→17:34)
[2020-10-30] MEDS: 0.9 % Sodium Chloride 1,000 ML IVC SCH ×2 (03:19→16:22)
[2020-10-30 05:47] LABS: Hemoglobin 10.4 g/dL (11.5-15.4); Mean Corpuscular HGB Conc 32.5 g/dL (31.6-35.5); Mean Corpuscular Hemoglobin 32.4 pg (28.0-33.3); Mean Corpuscular Volume 99.7 fL (83.0-100.0); Platelet Count 189 K/mcL (140-400); Red Blood Count 3.21 M/mcL (3.82-4.97); Red Cell Distribution Width 12.9 % (11.5-14.5); White Blood Count 17.5 K/mcL (4.3-11.1)
[2020-10-30 06:13] LABS: BUN/Creatinine Ratio 35 (6-26); Blood Urea Nitrogen 35 mg/dL (8-23); Calcium 8.1 mg/dL (8.6-10.3); Carbon Dioxide 23 mEq/L (23-29); Chloride 109 mEq/L (98-107); Glucose 96 mg/dL (70-105); Osmolality,Calculated 296 (280-300); Potassium 3.8 mEq/L (3.5-5.1); Sodium 139 mEq/L (136-145); eGFR For African Americans > 60 (> 60); eGFR For Non-African Americans 56 (> 60)
[2020-10-30 06:55] LABS: Eosinophils # 0.4 K/mcL (0.0-0.6); Lymphocytes # 3.9 K/mcL (0.6-4.6); Monocytes # 1.4 K/mcL (0.0-1.3); Neutrophils # 11.9 K/mcL (1.6-8.9); Platelet Estimate Normal (Normal); Toxic Granulation Present (Not Present)
[2020-10-30] MEDS: Levothyroxine Sodium 100 MCG VIAL IVP SCH (08:57)
[2020-10-30] MEDS: Pantoprazole 40 MG VIAL IVP SCH (08:57)
[2020-10-30] MEDS: Ondansetron 4 MG/2 ML VIAL IVP PRN (23:34)
[2020-10-31] MEDS: Acetaminophen IV 1,000 MG/100 ML BAG IVPB SCH (00:01)
[2020-10-31] MEDS: 0.9 % Sodium Chloride 1,000 ML IVC SCH ×2 (03:21→13:43)
[2020-10-31 09:10] LABS: Basophils # 0.1 K/mcL (0.0-0.2); Basophils % 0.3 %; Eosinophils # 0.2 K/mcL (0.0-0.6); Eosinophils % 1.5 %; Hematocrit 28.4 % (35.3-44.9); Hemoglobin 9.5 g/dL (11.5-15.4); Lymphocytes # 2.2 K/mcL (0.6-4.6); Lymphocytes % 14.3 %; Mean Corpuscular HGB Conc 33.5 g/dL (31.6-35.5); Mean Corpuscular Hemoglobin 32.5 pg (28.0-33.3); Mean Corpuscular Volume 97.3 fL (83.0-100.0); Mean Platelet Volume 9.9 fL (9.4-12.4); Monocytes # 0.9 K/mcL (0.0-1.3); Monocytes % 5.9 %; Neutrophils # 11.1 K/mcL (1.6-8.9); Platelet Count 177 K/mcL (140-400); Red Blood Count 2.92 M/mcL (3.82-4.97); Red Cell Distribution Width 12.7 % (11.5-14.5)
[2020-10-31 09:30] LABS: BUN/Creatinine Ratio 21 (6-26); Blood Urea Nitrogen 14 mg/dL (8-23); Calcium 7.5 mg/dL (8.6-10.3); Carbon Dioxide 25 mEq/L (23-29); Chloride 108 mEq/L (98-107); Glucose 97 mg/dL (70-105); Osmolality,Calculated 286 (280-300); Potassium 3.4 mEq/L (3.5-5.1); Sodium 138 mEq/L (136-145); eGFR For African Americans > 60 (> 60); eGFR For Non-African Americans > 60 (> 60)
[2020-10-31] MEDS: Levothyroxine Sodium 100 MCG VIAL IVP SCH (12:02)
[2020-10-31] MEDS: Ondansetron 4 MG/2 ML VIAL IVP PRN (17:59)
[2020-10-31] MEDS ORDERED: *HR* HYDROcodone/Acet 7.5/325 mg TABLET PO ONE (19:45)
[2020-11-01] MEDS: 0.9 % Sodium Chloride 1,000 ML IVC SCH ×3 (01:30→04:22)
[2020-11-01] MEDS: Acetaminophen IV 1,000 MG/100 ML BAG IVPB SCH (04:20)
[2020-11-01] MEDS: Levothyroxine Sodium 100 MCG VIAL IVP SCH (08:12)
[2020-11-01] MEDS: Ondansetron 4 MG/2 ML VIAL IVP PRN (08:16)
[2020-11-02] MEDS: Levothyroxine Sodium 100 MCG VIAL IVP SCH (09:30)
[2020-11-02] MEDS ORDERED: clonazePAM 0.5 MG TABLET PO PRN (14:57)
[2020-11-02] MEDS: Ziprasidone 80 MG CAPSULE PO SCH (21:52)
[2020-11-02] MEDS: Gabapentin 300 MG CAPSULE PO SCH (21:52)
[2020-11-03] MEDS: Gabapentin 300 MG CAPSULE PO SCH (08:30)
[2020-11-03] MEDS: Ziprasidone 80 MG CAPSULE PO SCH (08:30)
[2020-11-03 08:34] VITALS: BP 160/79
[2020-11-03] MEDS ORDERED: amLODIPine 5 MG TABLET PO SCH (09:00)
[2020-11-03] MEDS ORDERED: BuPROPion XL (24 HR) 150 MG TABLET PO SCH (09:00)
[2020-11-03] MEDS ORDERED: Simethicone 80 MG TAB.CHEW PO PRN (12:57)
== END 2020-11-03 19:30 | DRG 330 ==
LOC: 3ANU 17:19 → EMEROOARM 17:19 → SUATTDRO 21:19 → 3ANU 22:00
PROVIDERS: ADMIT Family Medicine; ATTEND Student in an Organized Health Care Education/Training Program

== ENCOUNTER 2020-11-12 15:35 | Observation (INO) ==
[2020-11-12 17:31] LABS: Troponin I < 0.03 ng/mL (< 0.04)
[2020-11-12 17:34] LABS: Hematocrit 25.4 % (35.3-44.9); Hemoglobin 8.4 g/dL (11.5-15.4); Mean Corpuscular HGB Conc 33.1 g/dL (31.6-35.5); Mean Corpuscular Hemoglobin 32.7 pg (28.0-33.3); Mean Platelet Volume 9.5 fL (9.4-12.4); Platelet Count 209 K/mcL (140-400); Red Blood Count 2.57 M/mcL (3.82-4.97); Red Cell Distribution Width 12.7 % (11.5-14.5)
[2020-11-12 17:47] LABS: BUN/Creatinine Ratio 11 (6-26); Blood Urea Nitrogen 9 mg/dL (8-23); Calcium 6.9 mg/dL (8.6-10.3); Carbon Dioxide 20 mEq/L (23-29); Chloride 101 mEq/L (98-107); Glucose 81 mg/dL (70-105); Osmolality,Calculated 282 (280-300); Potassium 3.2 mEq/L (3.5-5.1); Sodium 137 mEq/L (136-145); eGFR For African Americans > 60 (> 60); eGFR For Non-African Americans > 60 (> 60)
[2020-11-12 17:50] LABS: Mean Corpuscular Volume 98.8 fL (83.0-100.0)
[2020-11-12] MEDS ORDERED: Isovue-370 500 ML BOTTLE IVP ONE ×2 (20:43→23:02)
[2020-11-12] MEDS ORDERED: 0.9 % Sodium Chloride 500 ML IVC ONE (21:03)
[2020-11-13] MEDS ORDERED: Naloxone 0.4 MG/ML INJ IVP PRN (00:21)
[2020-11-13] MEDS ORDERED: 0.9 % Sodium Chloride 1,000 ML IVC SCH (01:30)
[2020-11-13] MEDS ORDERED: Potassium Chloride Elixir 20 MEQ/15 ML UDC PO ONE (01:47)
[2020-11-13] MEDS ORDERED: Perflutren Lipid Microsphere 1.3 ML in 0.9 % Sodium Chloride 8.7 ML IVP PRN (01:50)
[2020-11-13 02:16] LABS: Hematocrit 27.5 % (35.3-44.9); Mean Corpuscular HGB Conc 32.7 g/dL (31.6-35.5); Mean Corpuscular Hemoglobin 31.9 pg (28.0-33.3); Mean Corpuscular Volume 97.5 fL (83.0-100.0); Mean Platelet Volume 9.4 fL (9.4-12.4); Platelet Count 243 K/mcL (140-400); Red Blood Count 2.82 M/mcL (3.82-4.97); Red Cell Distribution Width 12.8 % (11.5-14.5); White Blood Count 5.5 K/mcL (4.3-11.1)
[2020-11-13] MEDS: Furosemide 40 MG/4 ML VIAL IVP SCH ×2 (02:25→08:37)
[2020-11-13 02:38] LABS: % Iron Saturation 17 % (15-50); BUN/Creatinine Ratio 10 (6-26); Blood Urea Nitrogen 7 mg/dL (8-23); Calcium 7.1 mg/dL (8.6-10.3); Carbon Dioxide 26 mEq/L (23-29); Chloride 101 mEq/L (98-107); Glucose 77 mg/dL (70-105); Iron 37 mcg/dL (50-170); Osmolality,Calculated 285 (280-300); Sodium 139 mEq/L (136-145); Transferrin 157 mg/dL (203-362); eGFR For African Americans > 60 (> 60); eGFR For Non-African Americans > 60 (> 60)
[2020-11-13 02:56] LABS: Ferritin 220 ng/mL (10-120)
[2020-11-13 03:02] LABS: Folate > 22.3 ng/mL (3.0-16.0); Vitamin B12 381 pg/mL (250-1100)
[2020-11-13] MEDS: Pantoprazole 40 MG VIAL IVP SCH ×2 (05:04→17:48)
[2020-11-13] MEDS ORDERED: Lidocaine -MPF 2% 5 ML VIAL SQ ONE (12:00)
[2020-11-13] MEDS ORDERED: *HR* Propofol 500 MG/50 ML BOTTLE IVP ONE (12:00)
[2020-11-13] MEDS ORDERED: SODIUM CHLORIDE/NAHCO3/KCL/PEG 4,000 ML SOLN.RECON PO ONE (17:00)
[2020-11-13] MEDS: Ondansetron 4 MG/2 ML VIAL IVP PRN (21:12)
[2020-11-14] MEDS ORDERED: Acetaminophen IV 1,000 MG/100 ML BAG IVPB ONE (01:21)
[2020-11-14] MEDS ORDERED: Prochlorperazine 10 MG/2 ML VIAL IVP PRN (01:47)
[2020-11-14] MEDS: Pantoprazole 40 MG VIAL IVP SCH ×2 (05:01→17:24)
[2020-11-14] MEDS ORDERED: Lidocaine -MPF 2% 2 ML VIAL ONE (07:26)
[2020-11-14] MEDS: Furosemide 40 MG/4 ML VIAL IVP SCH (08:03)
[2020-11-14] MEDS: Ondansetron 4 MG/2 ML VIAL IVP PRN (08:03)
[2020-11-14] MEDS ORDERED: Ipratropium/Albuterol Neb 3 ML IH PRN (08:06)
[2020-11-14] MEDS: 0.9 % Sodium Chloride 1,000 ML IVC SCH (09:10)
[2020-11-14 10:59] LABS: Hematocrit 30.4 % (35.3-44.9); Hemoglobin 10.3 g/dL (11.5-15.4); Mean Corpuscular HGB Conc 33.9 g/dL (31.6-35.5); Mean Corpuscular Hemoglobin 32.8 pg (28.0-33.3); Mean Corpuscular Volume 96.8 fL (83.0-100.0); Mean Platelet Volume 9.2 fL (9.4-12.4); Platelet Count 293 K/mcL (140-400); Red Blood Count 3.14 M/mcL (3.82-4.97); Red Cell Distribution Width 12.8 % (11.5-14.5); White Blood Count 6.5 K/mcL (4.3-11.1)
[2020-11-14 11:18] LABS: Alanine Aminotransferase 9 Units/L (7-52); Albumin 3.6 g/dL (3.5-5.7); Albumin/Globulin Ratio 1.4 (1.1-2.2); Alkaline Phosphatase 94 Units/L (34-104); Aspartate Amino Transferase 13 Units/L (13-39); BUN/Creatinine Ratio 6 (6-26); Bilirubin,Direct 0.1 mg/dL (0.0-0.2); Bilirubin,Indirect 0.2 mg/dL (0.0-1.0); Bilirubin,Total 0.3 mg/dL (0.3-1.0); Blood Urea Nitrogen 4 mg/dL (8-23); Calcium 7.4 mg/dL (8.6-10.3); Carbon Dioxide 27 mEq/L (23-29); Chloride 97 mEq/L (98-107); Globulin 2.6 g/dL (2.4-3.5); Glucose 98 mg/dL (70-105); Osmolality,Calculated 277 (280-300); Potassium 2.9 mEq/L (3.5-5.1); Sodium 135 mEq/L (136-145); Total Protein 6.2 g/dL (6.4-8.9); eGFR For African Americans > 60 (> 60); eGFR For Non-African Americans > 60 (> 60)
[2020-11-14] MEDS ORDERED: Potassium Chloride 40 MEQ, Lidocaine 1% 2 ML in 0.9 % Sodium Chloride 500 ML IVPB ONE (11:24)
[2020-11-14] MEDS ORDERED: Acetaminophen 325 MG TABLET PO PRN (11:26)
[2020-11-14] MEDS ORDERED: Prochlorperazine 10 MG/2 ML VIAL IVP ONE (11:27)
[2020-11-14] MEDS: Topiramate 25 MG TABLET PO SCH ×2 (11:51→21:09)
[2020-11-14] MEDS: BuPROPion XL (24 HR) 150 MG TABLET PO SCH (11:51)
[2020-11-14] MEDS: Loratadine 10 MG TABLET PO SCH (11:51)
[2020-11-14] MEDS: Ziprasidone 20 MG CAPSULE PO SCH ×2 (11:51→21:10)
[2020-11-15] MEDS: 0.9 % Sodium Chloride 1,000 ML IVC SCH (04:52)
[2020-11-15] MEDS: Pantoprazole 40 MG VIAL IVP SCH (05:40)
[2020-11-15 06:56] VITALS: BP 119/71
[2020-11-15 08:13] LABS: BUN/Creatinine Ratio 7 (6-26); Blood Urea Nitrogen 5 mg/dL (8-23); Carbon Dioxide 23 mEq/L (23-29); Chloride 103 mEq/L (98-107); Glucose 85 mg/dL (70-105); Osmolality,Calculated 277 (280-300); Potassium 3.4 mEq/L (3.5-5.1); Sodium 135 mEq/L (136-145); eGFR For African Americans > 60 (> 60); eGFR For Non-African Americans > 60 (> 60)
[2020-11-15 08:57] LABS: Basophils % 0.5 %; Eosinophils # 0.3 K/mcL (0.0-0.6); Eosinophils % 4.6 %; Hematocrit 30.1 % (35.3-44.9); Hemoglobin 9.5 g/dL (11.5-15.4); Immature Granulocytes % 0.7 % (0-4); Lymphocytes # 1.5 K/mcL (0.6-4.6); Mean Corpuscular HGB Conc 31.6 g/dL (31.6-35.5); Mean Corpuscular Hemoglobin 31.6 pg (28.0-33.3); Mean Platelet Volume 9.1 fL (9.4-12.4); Monocytes # 0.5 K/mcL (0.0-1.3); Monocytes % 9.3 %; Neutrophils # 3.2 K/mcL (1.6-8.9); Platelet Count 269 K/mcL (140-400); Red Blood Count 3.01 M/mcL (3.82-4.97); Segmented Neutrophils % 57.9 %; White Blood Count 5.6 K/mcL (4.3-11.1)
[2020-11-15] MEDS: Furosemide 40 MG/4 ML VIAL IVP SCH (09:13)
[2020-11-15] MEDS: Topiramate 25 MG TABLET PO SCH (09:13)
[2020-11-15] MEDS: Ziprasidone 20 MG CAPSULE PO SCH (09:14)
[2020-11-15] MEDS: BuPROPion XL (24 HR) 150 MG TABLET PO SCH (09:14)
[2020-11-15] MEDS: Loratadine 10 MG TABLET PO SCH (09:14)
== END 2020-11-15 12:01 | disposition home health service (06) ==
LOC: 3BNU 15:35 → EMEROOARM 15:35 → SUATTDRO 23:33 → 3BNU 11-13 00:14
PROVIDERS: ADMIT Internal Medicine; ATTEND Family Medicine
PROC: ENDOEBX (2020-11-13 13:00)

== ENCOUNTER 2021-06-22 17:50 | Observation (INO) ==
[2021-06-22 21:22] LABS: Basophils % 0.2 %; Hematocrit 33.7 % (35.3-44.9); Hemoglobin 11.7 g/dL (11.5-15.4); Immature Granulocytes % 0.2 % (0-4); Lymphocytes # 0.8 K/mcL (0.6-4.6); Lymphocytes % 19.5 %; Mean Corpuscular HGB Conc 34.7 g/dL (31.6-35.5); Mean Corpuscular Hemoglobin 32.4 pg (28.0-33.3); Mean Corpuscular Volume 93.4 fL (83.0-100.0); Mean Platelet Volume 10.2 fL (9.4-12.4); Monocytes # 0.4 K/mcL (0.0-1.3); Monocytes % 9.4 %; Neutrophils # 2.9 K/mcL (1.6-8.9); Platelet Count 172 K/mcL (140-400); Red Blood Count 3.61 M/mcL (3.82-4.97); Red Cell Distribution Width 13.8 % (11.5-14.5); Segmented Neutrophils % 69.7 %; White Blood Count 4.2 K/mcL (4.3-11.1)
[2021-06-22 21:24] LABS: Prothrombin Time 11.2 Seconds (9.4-12.1)
[2021-06-22 21:38] LABS: Influenza A PCR Negative (Negative); Influenza B PCR Negative (Negative); Resp. Syncytial Virus PCR Negative (Negative)
[2021-06-22 21:53] LABS: SARS-CoV-2 by PCR (In House) Positive (Negative)
[2021-06-22 22:11] LABS: Alanine Aminotransferase 15 Units/L (7-52); Albumin 4.5 g/dL (3.5-5.7); Albumin/Globulin Ratio 1.7 (1.1-2.2); Alkaline Phosphatase 76 Units/L (34-104); Aspartate Amino Transferase 23 Units/L (13-39); BUN/Creatinine Ratio 9 (6-26); Bilirubin,Indirect 0.4 mg/dL (0.0-1.0); Bilirubin,Total 0.4 mg/dL (0.3-1.0); Blood Urea Nitrogen 7 mg/dL (8-23); Calcium 9.3 mg/dL (8.6-10.3); Carbon Dioxide 23 mEq/L (23-29); Chloride 101 mEq/L (98-107); Globulin 2.7 g/dL (2.4-3.5); Glucose 104 mg/dL (70-105); Osmolality,Calculated 280 (280-300); Potassium 3.8 mEq/L (3.5-5.1); Sodium 136 mEq/L (136-145); Total Protein 7.2 g/dL (6.4-8.9); eGFR For African Americans > 60 (> 60); eGFR For Non-African Americans > 60 (> 60)
[2021-06-22 22:22] LABS: Bacteria,Urine Few per hpf (None-Few); Bilirubin,Urine Negative (Negative); Blood,Urine Negative (Negative); Clarity,Urine Clear (Clear); Color,Urine Colorless (Yellow); Glucose,Urine (UA) Normal (Normal); Ketones,Urine 10 mg/dL (Negative); Leukocyte Esterase,Urine Large (Negative); Mucus,Urine Few per lpf (None-Few); Nitrite,Urine Negative (Negative); Protein,Urine Negative (Neg-Trace); RBC,Urine 0-3 per hpf (0-3); Specific Gravity,Urine 1.008 (1.010-1.025); Squamous Epithelial Cell,Urine Few per hpf (None-Few); Urobilinogen,Urine Normal (Normal)
[2021-06-22] MEDS ORDERED: cefTRIAXone 1,000 MG in 0.9 % Sodium Chloride Mini Bag 100 ML IVPB ONE (23:42)
[2021-06-23] MEDS ORDERED: Ipratropium/Albuterol Neb 3 ML IH ONE (00:05)
[2021-06-23] MEDS ORDERED: Perflutren Lipid Microsphere 1.3 ML in 0.9 % Sodium Chloride 8.7 ML IVP PRN (00:41)
[2021-06-23] MEDS ORDERED: Ondansetron 4 MG/2 ML VIAL IVP PRN (00:42)
[2021-06-23] MEDS ORDERED: Naloxone 0.4 MG/ML INJ IVP PRN (00:42)
[2021-06-23 02:26] LABS: Basophils % 0.3 %; Eosinophils % 0.8 %; Hematocrit 34.2 % (35.3-44.9); Hemoglobin 11.7 g/dL (11.5-15.4); Immature Granulocytes % 0.3 % (0-4); Lymphocytes # 0.5 K/mcL (0.6-4.6); Lymphocytes % 12.7 %; Mean Corpuscular HGB Conc 34.2 g/dL (31.6-35.5); Mean Corpuscular Hemoglobin 32.1 pg (28.0-33.3); Mean Platelet Volume 9.8 fL (9.4-12.4); Monocytes # 0.2 K/mcL (0.0-1.3); Monocytes % 5.6 %; Platelet Count 168 K/mcL (140-400); Red Blood Count 3.64 M/mcL (3.82-4.97); Red Cell Distribution Width 13.7 % (11.5-14.5); Segmented Neutrophils % 80.3 %; White Blood Count 3.8 K/mcL (4.3-11.1)
[2021-06-23 02:36] LABS: Fibrinogen 508 mg/dL (169-393)
[2021-06-23 02:38] LABS: D-Dimer 884 ng/mLFEU (0-500)
[2021-06-23 02:45] LABS: BUN/Creatinine Ratio 9 (6-26); Blood Urea Nitrogen 6 mg/dL (8-23); C-Reactive Protein 32 mg/L (Less than 10); Carbon Dioxide 20 mEq/L (23-29); Chloride 104 mEq/L (98-107); Chol/HDL Ratio 3.5 (0-4.9); Cholesterol 233 mg/dL (< 200); Creatine Kinase 233 Units/L (30-223); Glucose 128 mg/dL (70-105); HDL Cholesterol 67 mg/dL (40-59); LDL Cholesterol,Calculated 155 mg/dL (< 100); Lactate Dehydrogenase 191 Units/L (140-271); Magnesium 1.9 mg/dL (1.6-2.6); Osmolality,Calculated 281 (280-300); Potassium 3.2 mEq/L (3.5-5.1); Sodium 136 mEq/L (136-145); Triglycerides 57 mg/dL (< 150); eGFR For African Americans > 60 (> 60); eGFR For Non-African Americans > 60 (> 60)
[2021-06-23 02:57] LABS: Thyroid Stimulating Hormone 5.265 mcIU/mL (0.340-5.600)
[2021-06-23] MEDS ORDERED: Isovue-370 500 ML BOTTLE IVP ONE (02:57)
[2021-06-23 03:03] LABS: Ferritin 225 ng/mL (10-120)
[2021-06-23] MEDS: cefTRIAXone 1,000 MG in 0.9 % Sodium Chloride Mini Bag 100 ML IVPB SCH (08:31)
[2021-06-23] MEDS: Acetaminophen 325 MG TABLET PO PRN ×3 (09:39→22:54)
[2021-06-23] MEDS: Azithromycin 500 MG in 0.9 % Sodium Chloride 250 ML IVPB SCH (09:41)
[2021-06-23] MEDS ORDERED: *HR* Labetalol 20 MG/4 ML SYRINGE IVP ONE (23:09)
[2021-06-23] MEDS: Gabapentin 300 MG CAPSULE PO SCH (23:31)
[2021-06-24] MEDS ORDERED: clonazePAM 0.5 MG TABLET PO PRN (00:14)
[2021-06-24 03:21] LABS: Basophils % 0.6 %; Eosinophils % 0.4 %; Hematocrit 39.7 % (35.3-44.9); Immature Granulocytes % 0.2 % (0-4); Lymphocytes # 1.4 K/mcL (0.6-4.6); Lymphocytes % 27.2 %; Mean Corpuscular HGB Conc 32.7 g/dL (31.6-35.5); Mean Corpuscular Hemoglobin 30.7 pg (28.0-33.3); Mean Corpuscular Volume 93.9 fL (83.0-100.0); Mean Platelet Volume 9.8 fL (9.4-12.4); Monocytes # 0.5 K/mcL (0.0-1.3); Monocytes % 9.1 %; Neutrophils # 3.2 K/mcL (1.6-8.9); Platelet Count 187 K/mcL (140-400); Red Blood Count 4.23 M/mcL (3.82-4.97); Segmented Neutrophils % 62.5 %; White Blood Count 5.2 K/mcL (4.3-11.1)
[2021-06-24 03:38] LABS: BUN/Creatinine Ratio 16 (6-26); Blood Urea Nitrogen 12 mg/dL (8-23); Calcium 9.6 mg/dL (8.6-10.3); Carbon Dioxide 22 mEq/L (23-29); Chloride 102 mEq/L (98-107); Glucose 103 mg/dL (70-105); Osmolality,Calculated 280 (280-300); Potassium 3.4 mEq/L (3.5-5.1); Sodium 135 mEq/L (136-145); eGFR For African Americans > 60 (> 60); eGFR For Non-African Americans > 60 (> 60)
[2021-06-24] MEDS: Acetaminophen 325 MG TABLET PO PRN (06:01)
[2021-06-24] MEDS ORDERED: amLODIPine 5 MG TABLET PO SCH (09:00)
[2021-06-24] MEDS: Topiramate 25 MG TABLET PO SCH ×2 (09:38→21:26)
[2021-06-24] MEDS: tiZANidine 4 MG TABLET PO SCH ×3 (09:39→21:25)
[2021-06-24] MEDS: Sennosides 8.6 MG TABLET PO SCH ×3 (09:39→21:32)
[2021-06-24] MEDS: Gabapentin 300 MG CAPSULE PO SCH ×2 (09:39→21:26)
[2021-06-24] MEDS: cefTRIAXone 1,000 MG in 0.9 % Sodium Chloride Mini Bag 100 ML IVPB SCH (09:44)
[2021-06-24] MEDS: Azithromycin 500 MG in 0.9 % Sodium Chloride 250 ML IVPB SCH (09:46)
[2021-06-24] MEDS ORDERED: Potassium Chloride Elixir 20 MEQ/15 ML UDC PO ONE (11:51)
[2021-06-25] MEDS: Acetaminophen 325 MG TABLET PO PRN ×2 (00:44→16:06)
[2021-06-25 00:54] LABS: Basophils % 0.2 %; Eosinophils % 0.2 %; Hematocrit 35.6 % (35.3-44.9); Hemoglobin 12.2 g/dL (11.5-15.4); Immature Granulocytes % 0.2 % (0-4); Lymphocytes # 1.4 K/mcL (0.6-4.6); Mean Corpuscular HGB Conc 34.3 g/dL (31.6-35.5); Mean Corpuscular Hemoglobin 32.4 pg (28.0-33.3); Mean Corpuscular Volume 94.4 fL (83.0-100.0); Mean Platelet Volume 9.8 fL (9.4-12.4); Monocytes # 0.4 K/mcL (0.0-1.3); Monocytes % 8.7 %; Neutrophils # 2.9 K/mcL (1.6-8.9); Platelet Count 185 K/mcL (140-400); Red Blood Count 3.77 M/mcL (3.82-4.97); Red Cell Distribution Width 14.2 % (11.5-14.5); Segmented Neutrophils % 61.7 %; White Blood Count 4.7 K/mcL (4.3-11.1)
[2021-06-25 01:11] LABS: BUN/Creatinine Ratio 22 (6-26); Blood Urea Nitrogen 15 mg/dL (8-23); Calcium 9.3 mg/dL (8.6-10.3); Carbon Dioxide 22 mEq/L (23-29); Chloride 102 mEq/L (98-107); Glucose 97 mg/dL (70-105); Osmolality,Calculated 277 (280-300); Potassium 3.7 mEq/L (3.5-5.1); Sodium 133 mEq/L (136-145); eGFR For African Americans > 60 (> 60); eGFR For Non-African Americans > 60 (> 60)
[2021-06-25 01:13] LABS: Albumin/Globulin Ratio 1.6 (1.1-2.2); Bilirubin,Direct 0.1 mg/dL (0.0-0.2); Bilirubin,Indirect 0.3 mg/dL (0.0-1.0); Bilirubin,Total 0.4 mg/dL (0.3-1.0); Globulin 2.5 g/dL (2.4-3.5); Total Protein 6.5 g/dL (6.4-8.9)
[2021-06-25 01:14] LABS: Troponin I 0.03 ng/mL (< 0.04)
[2021-06-25] MEDS ORDERED: *HR* Enoxaparin 40 MG/0.4 ML SYRINGE SQ SCH (06:00)
[2021-06-25] MEDS: tiZANidine 4 MG TABLET PO SCH ×2 (07:56→15:27)
[2021-06-25] MEDS: Gabapentin 300 MG CAPSULE PO SCH (07:56)
[2021-06-25] MEDS: Topiramate 25 MG TABLET PO SCH (07:56)
[2021-06-25] MEDS: Azithromycin 500 MG in 0.9 % Sodium Chloride 250 ML IVPB SCH (07:57)
[2021-06-25] MEDS: Sennosides 8.6 MG TABLET PO SCH (07:57)
[2021-06-25 11:26] VITALS: TEMP 97.5
[2021-06-25 15:10] VITALS: BP 156/80; PULSE 73; O2SAT 94
== END 2021-06-25 17:45 | disposition home health service (06) ==
LOC: 3NENU 17:50 → EMEROOARM 17:50 → SUATTDRO 06-23 00:16 → 3NENU 06-23 01:00
PROVIDERS: ADMIT Student in an Organized Health Care Education/Training Program; ATTEND General Practice